=== PATIENT | female | born 1985 | race Caucasian/White ===

== ENCOUNTER → 2019-03-04 12:25 | Outpatient (CLI) | payer MEDICAID, SELFPAY ==
--- NOTE | 2019-03-04 12:32 | XR_ITS ---
PROCEDURE: XR HIP RT 2-3V W/PELVIS CLINICAL INDICATION: Right hip pain COMPARISON: No exams were available for comparison FINDINGS: No fracture or dislocation. No significant degenerative change. Small cyst calcific density is present at the lesser trochanter and could be related to an ununited ossification center or a prior avulsion injury. There are bilateral tubal ligation clips. Abdominal wall tacks are present over the lower abdomen. IMPRESSION: Small separate calcific density at the lesser trochanter on the right which could be due to an old avulsion injury or accessory center of ossification otherwise negative. MRI may provide further evaluation to determine if this is an acute or chronic process Dictated by: Rudi Hitchcock MD 03/04/2019 16:36 Electronically signed by Rudi Hitchcock MD in [place] 03/04/2019 16:38
== END ==
PROVIDERS: PCP Nurse Practitioner Family; Visit Provider Nurse Practitioner Family
DX: M25.551 Pain in right hip (principal)
CPT/HCPCS: 73502

== ENCOUNTER → 2019-03-17 10:32 | Outpatient (CLI) | payer MEDICAID, SELFPAY ==
--- NOTE | 2019-03-17 10:34 | MR_ITS ---
PROCEDURE: MR HIP RT WO CON CLINICAL INDICATION: ABNORMAL X-RAY EXAMINATION, RT HIP PAIN Right hip pain worse when walking abnormal radiograph COMPARISON: XR HIP RT 2-3V W/PELVIS from 03/04/2019 TECHNIQUE: Routine multiplanar multi echo sequences are performed without gadolinium enhancement. FINDINGS: Recent plain film demonstrated a calcific density along the lesser trochanter.. It was uncertain if this was acute or chronic. The right hip joint has an unremarkable appearance. No evidence of fracture or avascular necrosis. No hip joint effusion evident. There is slight prominence of the ileo psoas tendon at the insertion on the lesser trochanter at the area of the radiographic abnormality. This does not demonstrate as intense T2 signal as 1 would expect for an acute injury and likely represents an old avulsion fracture with some mild tendinopathy/tendinosis. No acute abnormalities are evident. IMPRESSION: Slight widening with isointensity of the distal aspect of the iliopsoas tendon at the insertion on the lesser trochanter consistent with an area of tendinopathy/tendinosis. Suspect old avulsion injury at this area. No acute finding apparent Dictated by: Rudi Hitchcock MD 03/20/2019 12:43 Electronically signed by Rudi Hitchcock MD in [place] 03/20/2019 12:43
== END ==
PROVIDERS: PCP Nurse Practitioner Family; Visit Provider Nurse Practitioner Family
DX: M25.551 Pain in right hip (principal); R93.89 Abnormal findings on diagnostic imaging of other specified body structures
CPT/HCPCS: 73721

== ENCOUNTER → 2020-04-21 15:05 | Outpatient (CLI) | payer OTHER, SELFPAY | PROVIDERS: PCP Nurse Practitioner Family; Visit Provider Nurse Practitioner Family | DX: Z03.818 Encounter for observation for suspected exposure to other biological agents ruled out (principal) | CPT/HCPCS: U0003 ==

== ENCOUNTER 2020-10-26 17:45 | Emergency (ER) | payer OTHER, SELFPAY ==
[2020-10-26 17:46] VITALS: BP 138/74; PULSE 99; RESP 20; TEMP 37.1; O2SAT 98; BMI 30.9
[2020-10-26 18:04] VITALS: BP 130/76; PULSE 91; RESP 16; TEMP 36.8; O2SAT 100; BMI 30.7
--- NOTE | 2020-10-26 18:27 | HMH.EDUTC ---
[facility] [place] Dis[place] Clinical Impression: Bleeding hemorrhoid Disposition: Home, Self-Care Condition on Discharge: Good Instructions: Hemorrhoids (Alternative Therapy), Hemorrhoids, DI for Hemorrhoids Additional Instructions: Use medication as prescribed Sitz baths may help with discomfort and pain Avoid constipation: Use a laxative or stool softener as advised. Eat more high-fiber foods. These include whole grains, fruit, and veggies. Drink plenty of fluids. Avoid heavy lifting and strenuous activity for 1 to 2 weeks. Stool softeners help treat or prevent constipation. Stool softeners such as Senna and Docosate may help keep stools soft and prevent straining NSAIDs , such as ibuprofen, help decrease swelling, pain, and fever. Apply ice on your anus for 15 to 20 minutes every hour or as directed. Use an ice pack, or put crushed ice in a plastic bag. Cover it with a towel before you apply it to your anus. Ice helps prevent tissue damage and decreases swelling and pain. Take a sitz bath. Fill a bathtub with 4 to 6 inches of warm water. You may also use a sitz bath tuttle that fits inside a toilet bowl. Sit in the sitz bath for 15 minutes. Do this 3 times a day, and after each bowel movement. The warm water can help decrease pain and swelling. Keep your anal area clean. Gently wash the area with warm water daily. Soap may irritate the area. After a bowel movement, wipe with moist towelettes or wet toilet paper. Dry toilet paper can irritate the area. Follow up with Family Doctor if no improvement or any worsening of symptoms Return if needed Straight to ER if any life threatening symptoms Prescriptions: Hydrocortisone [Proctosol-Hc] 28.35 gm TP QID #1 tube Transmission Status: Received by [facility] Referrals: Ana M Arceo APRN [Primary Care Provider] - As needed Time of Disposition: 18:49 Medical Decision Making - Oj Inquiry Pt receiving controlled substance: No Oj was queried for this patient: No Vital Signs: 10/26/20 17:46 10/26/20 18:04 10/26/20 18:55 Temperature 98.7 F 98.3 F 98.5 F Temperature Source Oral Oral Pulse Rate 89 Pulse Rate [Radial] 99 H 91 H Respiratory Rate 20 16 16 Blood Pressure 140/79 Blood Pressure [Right Arm] 138/74 130/76 Blood Pressure Mean [Right Arm] 95 94 Blood Pressure Position [Right Arm] Sitting 02 Sat by Pulse Oximetry 98 100 Oxygen Delivery Method Room Air [facility] [place] HPI - General Stated complaint: hemorrhoids Time Seen by Provider: 10/26/20 18:36 Mode of Arrival: Ambulatory Source of Information: Patient Limitations: No Limitations Description of Symptoms (Recalled from Triage Doc. by RN): pt c/o pain related to hemorhoids. pt states she was seen by her pcp and was given a cream to use. pt states they continue to get worse. HEENT Symptoms (Recalled from RN notes): No Resp Symptoms (Recalled from RN notes): No Skin Symptoms (Recalled from RN notes): No MS Symptoms (Recalled from RN notes): No Functional Status (Recalled from RN notes): na - History of Present Illness Provider Complaint: Patient states that she has been being treated by her PCP for hemorrhoids States that they have been bleeding - Related Data Home Medications Medication Instructions Recorded Confirmed Escitalopram Oxalate [Lexapro] 20 mg PO DAILY 07/28/19 08/04/19 Previous Rx's Medication Instructions Recorded omeprazole 40 mg capsule,delayed 40 mg PO DAILY #30 cap 03/16/20 release Hydrocortisone [Proctosol-Hc] 28.35 gm TP QID #1 tube 10/26/20 Allergies Allergy/AdvReac Type Severity Reaction Status Date / Time codeine [CODEINE] Allergy Unknown Verified 10/26/20 18:08 Sulfa (Sulfonamide Allergy Unknown Verified 10/26/20 18:08 Antibiotics) [SULFA (SULFONAMIDE ANTIBIOTICS)] - Worker's Comp Is this a Worker's Comp case?: No [facility] History - Hepatitis A Screen Drug use history?: No High risk sexual behaviors?: No History of sexually transmitted
[2020-10-26 18:55] VITALS: BP 140/79; PULSE 89; RESP 16; TEMP 36.9
== END 2020-10-26 18:56 | disposition home or self-care (01) ==
PROVIDERS: Emergency Provider Nurse Practitioner; PCP Nurse Practitioner Family
DX: K64.4 Residual hemorrhoidal skin tags (principal); F41.8 Other specified anxiety disorders; K21.9 Gastro-esophageal reflux disease without esophagitis
CPT/HCPCS: 99202; G0463

== ENCOUNTER → 2020-11-16 15:14 | Outpatient (CLI) | payer OTHER, SELFPAY ==
[2020-11-16 15:38] LABS: Basophils # 0.1 K/mm3 (0-0.2); Basophils % 0.9 % (0.1-2.0); Eosinophils # 0.1 K/mm3 (0.0-0.4); Eosinophils % 1.3 % (0.1-12.0); Hematocrit 41.2 % (37.0-47.0); Hemoglobin 13.7 g/dL (12.2-16.2); Lymphocytes # 2.7 K/mm3 (0.7-4.5); Lymphocytes % 26.1 % (10-50); Mean Corpuscular HGB Conc 33.1 g/dL (31.8-35.4); Mean Corpuscular Hemoglobin 30.7 pg (27.0-31.2); Mean Corpuscular Volume 92.6 fl (81-99); Mean Platelet Volume 8.8 fl (7.4-10.4); Monocytes # 0.5 K/mm3 (0.1-1.0); Monocytes % 5.3 % (1.7-9.3); Neutrophils # 6.7 K/mm3 (1.8-7.8); Neutrophils % 66.4 % (37.0-80.0); Platelet Count 252 K/mm3 (142-424); Red Blood Count 4.45 M/mm3 (4.20-5.40); Red Cell Distribution Width 13.8 % (11.5-17.5); White Blood Count 10.1 K/mm3 (4.8-10.8)
[2020-11-16 16:00] LABS: Alanine Aminotransferase 13 U/L (12-78); Albumin Level 4.1 g/dl (3.5-5.0); Albumin/Globulin Ratio 1.6 (1.1-1.8); Alkaline Phosphatase 60 U/L (38-126); Anion Gap 8.6 mEq/L (5-15); Aspartate Amino Transferase 15 U/L (14-36); Bilirubin,Total 0.5 mg/dl (0.2-1.3); Blood Urea Nitrogen 10 mg/dl (7-17); Calcium 9.2 mg/dl (8.4-10.2); Carbon Dioxide 27 mmol/L (22.0-30.0); Chloride 108 mmol/L (98-107); Estimated Glomerular Filt Rate 95 ml/min (>60); GFR (African American) 115 ML/MIN (>60); Globulin 2.5 g/dL (1.3-3.2); Glucose 134 mg/dl (74-100); Potassium 4.6 mmoL/L (3.5-5.1); Sodium 139 mmol/L (136-145); Total Protein,Serum 6.6 g/dl (6.3-8.2)
== END ==
PROVIDERS: Visit Provider Nurse Practitioner Family
DX: R10.30 Lower abdominal pain, unspecified (principal); K62.5 Hemorrhage of anus and rectum
CPT/HCPCS: 36415; 80053; 85025

== ENCOUNTER → 2020-11-17 10:49 | Outpatient (CLI) | payer OTHER, SELFPAY ==
--- NOTE | 2020-11-17 10:52 | CT_ITS ---
PROCEDURE: CT ABDOMEN PELVIS W CON CLINICAL INDICATION: RECTAL BLEEDING,LOWER ABD PAIN COMPARISON: No exams were available for comparison TECHNIQUE: IV Contrast: 75ML OPTIRAY 350 Oral Contrast 20ml Gastroview Axial images obtained with sagittal and coronal reformats. All CT scans at the facility use one or more dose reduction, viz: automated exposure control, ma/kV adjustment per patient size (including targeted exams where dose is matched to indication, i.e. head), or iterative reconstruction technique. FINDINGS: Lower thorax: The lower lung barton are clear and there is no pleural fluid. There is minimal postinflammatory scarring or atelectasis the right base anteriorly there is a large calcified granuloma right lower lobe. There is no pleural fluid. ABDOMEN: Liver: No masses or biliary dilatation. Gallbladder: Post cholecystectomy Pancreas: No masses or peripancreatic fluid collections. Spleen: unremarkable except for few scattered calcified granulomata Adrenals: unremarkable Kidneys/ureters: The kidneys are normal in size and show symmetrical function both appearing normal. ABDOMEN & PELVIS: Stomach bowel: Media. The stomach appears grossly normal. The small bowel is normal. The appendix is normal. There is moderate scattered stool and gas seen throughout the colon, the rectum appears normal. Peritoneum: No abnormal fluid collections. No obvious inflammatory changes. No free air. There is apparent mesh with surgical clips just to the right of the midline lower abdomen probably from previous ventral hernia repair. Lymph nodes: No enlarged lymph nodes apparent. Vasculature: No evidence of abdominal aortic aneurysm. There is scattered arteriosclerotic calcifications within the aorta, no retroperitoneal hemorrhage evident. Bones: No acute fracture PELVIS: Reproductive: The uterus is normal size and in the midline. There are bilateral tubal ligation clips noted. There are no adnexal masses. There is a small right ovarian cyst with peripheral enhancement. Bladder: Well distended with urine and appearing normal. There is no free fluid in pelvis. Appendix: Normal IMPRESSION: Findings as described with no definite acute abdominal or pelvic pathology identified Dictated by: Dr. Joey Chapman MD 11/17/2020 12:10 Dr. Joey Chapman MD in [place] 11/17/2020 12:10
== END ==
PROVIDERS: PCP Nurse Practitioner Family; Visit Provider Nurse Practitioner Family
DX: R10.30 Lower abdominal pain, unspecified (principal); K62.5 Hemorrhage of anus and rectum
CPT/HCPCS: 74177; Q9967

== ENCOUNTER → 2020-12-05 13:15 | Outpatient (CLI) | payer OTHER, SELFPAY ==
[2020-12-05 13:58] LABS: Urine Pregnancy, HCG Qual. Negative (Negative)
== END ==
PROVIDERS: Visit Provider Surgery
DX: Z01.812 Encounter for preprocedural laboratory examination (principal); Z11.52 Encounter for screening for COVID-19; K64.9 Unspecified hemorrhoids
CPT/HCPCS: 81025; U0003

== ENCOUNTER 2020-12-07 09:12 | Day surgery (SDC) | payer OTHER, SELFPAY ==
[2020-11-30 11:03] VITALS: BMI 29.1
[2020-12-07 09:28] VITALS: BP 131/79; PULSE 86; RESP 18; TEMP 36.7; O2SAT 98
[2020-12-07 09:41] LABS: POC Glucose,Bedside 117 (70-110)
--- NOTE | 2020-12-07 10:55 | HMH.ANESCL ---
[facility] Anesthesia Checklist - Patient Identification Patient Identification: Arm Band - Structural Data Admitted From: Home Planned Operative Procedure/s: egd/colonoscopy Consent for Planned Operative Procedure(s) Verified: Yes Verified Documents: Surgical Consent, History and Physical - NPO Status Verified Time NPO: 00:00 - Additional verifications Anesthesia Reactions: No - Airway Assessment C-Spine Mobility Assessed: Yes (mp2) TMJ Mobility Assessed: Yes Dentition: Edentulous - Neurological Assessment Level of Consciousness: Awake, Alert - Anesthesia Plan Anesthesia Risk discussed: Yes Anesthesia Plan: Verified ASA Class: II Anesthesia Type: MAC [facility] History I have reviewed the patient's past medical history: Yes Medical History: Reports:: Anxiety, Depression, Diabetes Mellitus Type 2, Gastroesophageal Reflux Disease(GERD) Denies:: Cancer, Diabetes Mellitus Type 1, Hypertension, Internal Pacemaker, Lung Disease, MRSA, Seizures *Have you ever received a pneumonia vaccine?: No *Have you received a flu vaccine this season?: No Anesthesia experience/problems:: nac Laterality Cases: Bilateral: Tonsillectomy Other Surgeries: Yes: Cholecystectomy, Colonoscopy, , EGD, Hernia Repair, Other. No: Pacemaker Amputation: No Fractures: No - *Social History Last grade of school completed: Some college Smoking Status: Current every day smoker Tobacco Type: cigarettes # Packs/Day (cigarettes): 1 Alcohol Intake: never Substance Use Type: denies use *Occupational Status:: employed Housing: house Household Members: family, children *Travel in the last 8 weeks: None - Psychiatric History Pschychiatric History:: Reports:: Anxiety, Depression Family Hx:: Unable to obtain
[2020-12-07 10:57] VITALS: O2SAT 97
[2020-12-07 11:35] VITALS: BP 102/64; PULSE 88; RESP 16; TEMP 36.3; O2SAT 92
--- NOTE | 2020-12-07 11:35 | HMH.SCOPE ---
- Procedure: Date: 12/07/20 Patient Date of :: 1985 Procedure Performed:: Esophagogastroduodenoscopy with biopsy Colonoscopy with biopsy Anoscopy Indications:: History of Ring's esophagus Blood per rectum Performing Provider:: Gold Adair MD Referring Provider:: . Sedation:: Monitored anesthesia care Procedure:: After informed consent was obtained the patient was taken to the endoscopy suite. Sedation ensued after the patient was transferred to the left lateral decubitus position. Pulse, blood pressure, and oxygen saturation were monitored throughout the procedure. The endoscope was advanced beyond the duodenal bulb. Retroflexion within the gastric lumen was accomplished. The gastroscope was carefully removed. Digital rectal exam revealed perianal tags with a dominant posterior tag. The anoscope was placed in position. Circumferential hemorrhoidal cushions confirmed. The colonoscope was placed in position. The entire colon was evaluated. The colonoscope was carefully removed and the patient was transferred to recovery in stable condition. Please see findings and specimens below for detail. Findings:: Sliding hiatal hernia Tiny tongue of possible Ring's at gastroesophageal junction Gastric cardia polyp Bowel preparation poor for colonoscopy Perianal tags with dominant posterior tag Circumferential hemorrhoids Small anal canal polyps at margin of hemorrhoids Scattered diverticulosis Specimens:: Antral biopsy Gastric cardia polyp Gastroesophageal junction biopsies (small tongue of possible Ring's) Biopsy of anal canal polyps (tiny polyps at margin of hemorrhoidal cushions) Recommendations:: Follow-up pathology Continue PPI Timing of repeat colonoscopy is pending pathology but will likely be between 3-5 years. Extended bowel preparation will be required. Complications:: No immediate Estimated blood obtained (mL): 1
[2020-12-07 11:45] VITALS: BP 101/65; PULSE 84; RESP 16; O2SAT 95
[2020-12-07 11:55] VITALS: BP 100/66; PULSE 80; RESP 16; O2SAT 98
[2020-12-07 12:05] VITALS: BP 104/54; PULSE 78; RESP 14; TEMP 36.7; O2SAT 98
== END 2020-12-07 12:10 | disposition home or self-care (01) ==
LOC: OUTP 09:14
PROVIDERS: PCP Nurse Practitioner Family; Visit Provider Surgery
PROC: 0DJ08ZZ Inspection of Upper Intestinal Tract, Via Natural or Artificial Opening Endoscopic (ICD-10-PCS; CPT 43235; principal; 2020-12-07 10:30)
DX: K44.9 Diaphragmatic hernia without obstruction or gangrene; K22.9 Disease of esophagus, unspecified; K31.7 Polyp of stomach and duodenum; N90.89 Other specified noninflammatory disorders of vulva and perineum; K64.9 Unspecified hemorrhoids; K62.0 Anal polyp; K57.30 Diverticulosis of large intestine without perforation or abscess without bleeding; Z87.19 Personal history of other diseases of the digestive system; F41.9 Anxiety disorder, unspecified; F32.9 Major depressive disorder, single episode, unspecified; K21.9 Gastro-esophageal reflux disease without esophagitis; Z79.899 Other long term (current) drug therapy
CPT/HCPCS: 43239; 45380; 82962; J2704

== ENCOUNTER → 2021-02-16 15:12 | Outpatient (CLI) | payer OTHER, SELFPAY | PROVIDERS: PCP Nurse Practitioner Family; Visit Provider Nurse Practitioner Family | DX: Z20.822 Contact with and (suspected) exposure to COVID-19 (principal); U07.1 COVID-19 | CPT/HCPCS: U0003 ==

== ENCOUNTER → 2021-04-20 11:52 | Outpatient (CLI) | payer OTHER, SELFPAY ==
--- NOTE | 2021-04-20 12:06 | ECG_ITS ---
APPROVED REPORT Exam: Resting ECG HR:85 bpm ECG Measurements Heart Rate 85 AXES AL 134 P 48 QRSd 90 QRS 29 QT 368 T 32 QTc 437 Conclusion Normal sinus rhythm Normal ECG Electronically signed by : Jassi Espinosa MD 04/20/2021 14:24:15
--- NOTE | 2021-04-20 12:11 | XR_ITS ---
PROCEDURE: XR CHEST 2V CLINICAL HISTORY: COUGH,SOB COMPARISON: CT CT ABDOMEN PELVIS W CON from 11/17/2020 FINDINGS: The cardiomediastinal silhouette and pulmonary vascularity are within normal limits. There are calcified right hilar nodes. The lungs are clear without infiltrates, suspicious nodules, or pleural effusions. There is a stable calcified granuloma right lower lobe just above the right hemidiaphragm. There is no pleural fluid. No acute bony abnormalities. There is minor diffuse dextroscoliotic curvature of the lower thoracic spine probably no more than 4-5 degrees. IMPRESSION: No acute findings. Dictated by: Dr. Joey Chapman MD 04/20/2021 12:24 Dr. Joey Chapman MD in [place] 04/20/2021 12:24
[2021-04-20 12:44] LABS: Basophils # 0.2 K/mm3 (0-0.2); Basophils % 1.8 % (0.1-2.0); Eosinophils # 0.1 K/mm3 (0.0-0.4); Hematocrit 45.9 % (37.0-47.0); Hemoglobin 14.9 g/dL (12.2-16.2); Lymphocytes # 2.3 K/mm3 (0.7-4.5); Mean Corpuscular HGB Conc 32.6 g/dL (31.8-35.4); Mean Corpuscular Hemoglobin 30.6 pg (27.0-31.2); Mean Corpuscular Volume 93.9 fl (81-99); Mean Platelet Volume 9.6 fl (7.4-10.4); Monocytes # 0.5 K/mm3 (0.1-1.0); Monocytes % 4.5 % (1.7-9.3); Neutrophils # 7.9 K/mm3 (1.8-7.8); Neutrophils % 71.7 % (37.0-80.0); Platelet Count 305 K/mm3 (142-424); Red Blood Count 4.88 M/mm3 (4.20-5.40)
[2021-04-20 13:35] LABS: Chloride 105 mmol/L (98-107); Potassium 4.6 mmoL/L (3.5-5.1); Sodium 138 mmol/L (136-145)
[2021-04-20 13:38] LABS: Alanine Aminotransferase 16 U/L (12-78); Albumin Level 3.9 g/dl (3.5-5.0); Albumin/Globulin Ratio 1.4 (1.1-1.8); Alkaline Phosphatase 88 U/L (38-126); Anion Gap 13.6 mEq/L (5-15); Aspartate Amino Transferase 17 U/L (14-36); Bilirubin,Total 0.6 mg/dl (0.2-1.3); Blood Urea Nitrogen 11 mg/dl (7-17); Calcium 9.3 mg/dl (8.4-10.2); Carbon Dioxide 24 mmol/L (22.0-30.0); Estimated Glomerular Filt Rate 112 ml/min (>60); GFR (African American) 136 ML/MIN (>60); Globulin 2.7 g/dL (1.3-3.2); Glucose 182 mg/dl (74-100); Total Protein,Serum 6.6 g/dl (6.3-8.2)
[2021-04-20 13:39] LABS: Magnesium 1.9 mg/dl (1.6-2.3)
== END ==
PROVIDERS: PCP Nurse Practitioner Family; Visit Provider Nurse Practitioner Family
DX: R06.02 Shortness of breath (principal); R05.9 Cough, unspecified; R00.2 Palpitations; R11.0 Nausea
CPT/HCPCS: 36415; 71046; 80053; 83735; 84443; 85025; 93005

== ENCOUNTER → 2021-06-25 15:07 | Outpatient (CLI) | payer OTHER, SELFPAY | PROVIDERS: PCP Nurse Practitioner Family; Visit Provider Nurse Practitioner | DX: Z20.822 Contact with and (suspected) exposure to COVID-19 (principal) | CPT/HCPCS: C9803; U0003; U0005 ==

== ENCOUNTER → 2021-07-02 14:15 | Outpatient (CLI) | payer OTHER, SELFPAY | PROVIDERS: Visit Provider Nurse Practitioner | DX: Z20.822 Contact with and (suspected) exposure to COVID-19 (principal) | CPT/HCPCS: C9803; U0003; U0005 ==

== ENCOUNTER → 2021-07-10 14:33 | Outpatient (CLI) | payer OTHER, SELFPAY | PROVIDERS: PCP Nurse Practitioner Family; Visit Provider Nurse Practitioner | DX: Z20.822 Contact with and (suspected) exposure to COVID-19 (principal) | CPT/HCPCS: C9803; U0003; U0005 ==

== ENCOUNTER 2021-10-01 22:02 | Emergency (ER) | payer OTHER, SELFPAY ==
[2021-10-01 22:04] VITALS: BP 126/75; PULSE 96; RESP 16; TEMP 36.9; O2SAT 99; BMI 29.9
[2021-10-01 22:20] VITALS: BMI 29.9
--- NOTE | 2021-10-01 22:20 | XR_ITS ---
PROCEDURE INFORMATION: Exam: XR Chest Exam date and time: 10/01/2021 10:48 PM Age: 36 years old Clinical indication: Injury or trauma; Fall; Blunt trauma (contusions or hematomas) TECHNIQUE: Imaging protocol: XR of the chest. Views: 4 or more views. COMPARISON: CR XR CHEST 2V 04/20/2021 12:13 PM FINDINGS: Lungs: Calcified granuloma at the right lung base. No consolidation. Pleural spaces: Unremarkable. No pleural effusion. No pneumothorax. Heart/Mediastinum: Unremarkable. No cardiomegaly. Bones/joints: Unremarkable. Organs: Previous cholecystectomy. IMPRESSION: No acute cardiopulmonary process.
--- NOTE | 2021-10-01 22:20 | CT_ITS ---
PROCEDURE INFORMATION: Exam: CT Lumbar Spine Without Contrast Exam date and time: 10/01/2021 11:01 PM Age: 36 years old Clinical indication: Low back pain; Patient HX: Fall going down ramp TECHNIQUE: Imaging protocol: Computed tomography images of the lumbar spine without contrast. Radiation optimization: All CT scans at this facility use at least one of these dose optimization techniques: automated exposure control; mA and/or kV adjustment per patient size (includes targeted exams where dose is matched to clinical indication); or iterative reconstruction. COMPARISON: CR LS5 LUMBAR SPINE 5 VIEWS 02/14/2017 12:41 PM FINDINGS: Vertebrae: Vertebral body height and AP alignment is preserved. There is Schmorl's node formation. Mild levoconvex curvature. No acute lumbar spine fracture. No osseous destruction. Discs/Spinal canal/Neural foramina: No definite significant central canal stenosis within limitations of technique. Mediastinum: There are calcified granulomas involving the spleen. Gallbladder and bile ducts: Previous cholecystectomy. Reproductive: Previous bilateral tubal ligation. Vasculature: Vascular calcification. Soft tissues: Unremarkable. IMPRESSION: No acute osseous abnormality.
--- NOTE | 2021-10-01 22:20 | XR_ITS ---
PROCEDURE INFORMATION: Exam: XR Pelvis Exam date and time: 10/01/2021 10:47 PM Age: 36 years old Clinical indication: Injury or trauma; Fall; Blunt trauma (contusions or hematomas); Bilateral; Pelvic region; Prior surgery; Surgery type: Tubal TECHNIQUE: Imaging protocol: XR pelvis. Views: 1 or 2 view. COMPARISON: CT ABDOMEN PELVIS W CON 11/17/2020 11:27 AM FINDINGS: Tubes, catheters and devices: There are bilateral tubal ligation clips. Bones/joints: There is a small linear lucency involving the superior aspect of the right lesser trochanter. No dislocation. Soft tissues: There has been previous hernia repair. IMPRESSION: Small linear lucency involving the superior aspect of the right lesser trochanter, possible nondisplaced fracture. Correlation with CT may be considered as clinically warranted.
--- NOTE | 2021-10-01 22:20 | CT_ITS ---
PROCEDURE INFORMATION: Exam: CT Thoracic Spine Without Contrast Exam date and time: 10/01/2021 10:58 PM Age: 36 years old Clinical indication: Pain in thoracic spine; Patient HX: Fall going down ramp TECHNIQUE: Imaging protocol: Computed tomography images of the thoracic spine without contrast. Radiation optimization: All CT scans at this facility use at least one of these dose optimization techniques: automated exposure control; mA and/or kV adjustment per patient size (includes targeted exams where dose is matched to clinical indication); or iterative reconstruction. COMPARISON: CT CERVICAL SPINE WO CON 10/01/2021 10:56 PM FINDINGS: Vertebrae: Mild dextroconvex curvature. Multilevel Schmorl's node formation. Vertebral body height and AP alignment is preserved. 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 No acute thoracic spine fracture. No osseous destruction. Discs/Spinal canal/Neural foramina: No significant central canal stenosis within limitations of technique. Soft tissues: Unremarkable. Lymph nodes: There are calcified mediastinal and right hilar lymph nodes. Pleural spaces: No visible pneumothorax. Spleen: There are calcified granulomas involving the spleen. Other findings: There are few tiny bilateral nodular densities measuring up to 4 mm. IMPRESSION: 1. No acute thoracic spine fracture. 2. There are several small bilateral nodular densities measuring up to 4 mm. For patients at low risk (minimal or absent history of smoking and of other known risk factors), no routine follow-up is indicated. For patients at high risk (history of smoking or of other known risk factors), consider optional CT Chest at 12 months. (Reference: Joe) REFERENCES: Joe Whitmore, et al. Guidelines for Management of Incidental Pulmonary Nodules Detected on CT Images: From the Fleischner Society 2017. Radiology. 2017;284(1):228-243.
--- NOTE | 2021-10-01 22:20 | CT_ITS ---
PROCEDURE INFORMATION: Exam: CT Cervical Spine Without Contrast Exam date and time: 10/01/2021 10:56 PM Age: 36 years old Clinical indication: Neck pain; Patient HX: Fall going down ramp TECHNIQUE: Imaging protocol: Computed tomography images of the cervical spine without contrast. Radiation optimization: All CT scans at this facility use at least one of these dose optimization techniques: automated exposure control; mA and/or kV adjustment per patient size (includes targeted exams where dose is matched to clinical indication); or iterative reconstruction. COMPARISON: RF ESO ESOPHAGUS (BA. SWALLOW) 02/23/2016 9:09 AM FINDINGS: Bones/joints: Nonspecific straightening. Vertebral body height and AP alignment is preserved. No acute cervical spine fracture. Discs/Spinal canal/Neural foramina: No definite significant central canal stenosis within limitations of technique. Submandibular/Parotid glands: Multiple small calcifications are present involving the bilateral parotid glands. Lungs: Lung apices are normal. Pleural spaces: No visible pneumothorax. Soft tissues: Unremarkable. IMPRESSION: No acute cervical spine fracture.
--- NOTE | 2021-10-01 22:34 | HMH.EDBACK ---
ED Disposition Clinical Impression: Lumbar back pain Thoracic back pain Qualifiers: Chronicity: acute Back pain laterality: unspecified Qualified Code(s): M54.6 - Pain in thoracic spine Disposition: Home, Self-Care Condition on Discharge: Good Instructions: DI for Low Back Pain Additional Instructions: ice anbd see pcp for yuli farnsworth Referrals: Ana M Arceo APRN [Primary Care Provider] - - Critical Care Critical Care Time: No Attestation: On 10/01/21, the high probability of a clinically significant, sudden or life threatening deterioration of the following system(s) required my full and direct attention, intervention and personal management. The time I documented below is in addition to time spent performing reported procedures but includes the following listed in this critical care notation. Medical Decision Making - Medical Records Medical records reviewed: Yes: I reviewed the patient's medical records. - Oj Inquiry Pt receiving controlled substance: No Vital Signs: 10/01/21 22:04 Temperature 98.5 F Temperature Source Oral Pulse Rate [Right] 96 H Respiratory Rate 16 Blood Pressure [Right Arm] 126/75 Blood Pressure Mean [Right Arm] 92 02 Sat by Pulse Oximetry 99 - Lab Data Lab results reviewed: Yes: I reviewed the patient's lab results. Orders (Tests/Meds): ED MEDICATIONS Generic Name Dose Route Start Last Admin Trade Name Freq PRN Reason Stop Dose Admin Tramadol HCl 1 jessi 10/02/21 01:13 Tramadol 50mg Tab Take Home Pack (10) PO 10/02/21 01:14 ONCE ONE Discontinued Medications Generic Name Dose Route Start Last Admin Trade Name Freq PRN Reason Stop Dose Admin Ketorolac Tromethamine 60 mg 10/01/21 22:32 10/01/21 22:39 Ketorolac 60mg/2ml Vial IM 10/01/21 22:33 60 mg ONCE ONE Administration Methylprednisolone Sodium Succinate 125 mg 10/01/21 22:32 10/01/21 22:39 Methylprednisolone Sod Succ 125mg Vial IM 10/01/21 22:33 125 mg ONCE ONE Administration Orphenadrine Citrate 60 mg 10/02/21 00:19 10/02/21 00:21 Orphenadrine Citrate 60mg/2ml Vial IM 10/02/21 00:20 60 mg ONCE ONE Administration - Radiology Data #1 Image(s): Chest, Pelvis Image Reviewed: Yes I have reviewed radiologist's interpretation Preliminary Findings: No Fracture Seen - CT Data CT Scan: C-Spine, T-Spine, L-Spine Time Received: 00:[address] Reviewed: Yes: I have viewed the radiologist's interpretation Preliminary Findings: No Fracture Seen Medical Decision Narrative: acute fall w/o fx and has stable exam Back Pain HPI - General Chief Complaint: Back Pain/Injury Stated Complaint: AO 10/01@2030 injured back*tail bone Time Seen by Provider: 10/01/21 22:15 Mode of Arrival: Ambulatory Source of Information: Patient, Medical Record Limitations: No Limitations Description of Symptoms (Recalled from ER Triage Doc. by RN): pt states was walking down ramp and her legs went out from underneath her landing on her butt. pt c/o lower back pain and tailbone pain - History of Present Illness HPI Narrative: slipped and fell with injury to back but no head injury or loc - no abd pain MD Complaint: back injury Onset (ago): hour(s) Duration: constant Location: lumbar spine, thoracic spine, sacrum Severity: moderate Exacerbating factors: movement Context: fall Associated symptoms: denies other symptoms - Related Data Home Medications Medication Instructions Recorded Confirmed Duloxetine HCl [Cymbalta] 60 mg PO DAILY 11/30/20 12/20/20 Hydrocortisone [Proctosol-Hc] 28.35 gm TP QID 11/30/20 12/20/20 Omeprazole 40 mg PO DAILY 11/30/20 12/20/20 Allergies Allergy/AdvReac Type Severity Reaction Status Date / Time codeine [CODEINE] Allergy Unknown Verified 12/20/20 10:21 Sulfa (Sulfonamide Allergy Unknown Verified 12/20/20 10:21 Antibiotics) [SULFA (SULFONAMIDE ANTIBIOTICS)] [facility] History - Hepatitis A Screen Drug use histo
--- NOTE | 2021-10-02 00:46 | CT_ITS ---
PROCEDURE INFORMATION: Exam: CT Right Lower Extremity Without Contrast, Hip Exam date and time: 10/02/2021 12:49 AM Age: 36 years old Clinical indication: Abnormal findings; Abnormal imaging study; Additional info: Fall TECHNIQUE: Imaging protocol: CT of the Right lower extremity without contrast was performed. Exam focused on the hip. 3D rendering (Not supervised by radiologist): MIP and/or 3D reconstructed images were created by the technologist. Radiation optimization: All CT scans at this facility use at least one of these dose optimization techniques: automated exposure control; mA and/or kV adjustment per patient size (includes targeted exams where dose is matched to clinical indication); or iterative reconstruction. COMPARISON: MR HIP RT WO CON 03/17/2019 10:48 AM FINDINGS: Bones/joints: No acute fracture or dislocation. There is small chronic calcification adjacent to the lesser trochanter responsible for the appearance of lucency on recent x-ray study. Soft tissues: Right-sided tubal ligation clip. IMPRESSION: No acute osseous abnormality.
[2021-10-02 01:19] VITALS: BP 118/85; PULSE 89; RESP 16; TEMP 36.9; O2SAT 99
== END 2021-10-02 01:20 | disposition home or self-care (01) ==
PROVIDERS: Emergency Provider Emergency Medicine; PCP Nurse Practitioner Family
DX: M54.6 Pain in thoracic spine (principal); M54.50 Low back pain, unspecified; W01.0XXA Fall on same level from slipping, tripping and stumbling without subsequent striking against object, initial encounter; Y92.480 Sidewalk as the place of occurrence of the external cause; F41.8 Other specified anxiety disorders; K21.9 Gastro-esophageal reflux disease without esophagitis; F17.210 Nicotine dependence, cigarettes, uncomplicated
CPT/HCPCS: 71045; 72125; 72128; 72131; 72170; 73700; 96372; 99284

== ENCOUNTER → 2021-11-26 15:32 | Outpatient (CLI) | payer OTHER, SELFPAY | PROVIDERS: PCP Nurse Practitioner Family; Visit Provider Nurse Practitioner Family | DX: G47.30 Sleep apnea, unspecified (principal) | CPT/HCPCS: 95806 ==

== ENCOUNTER → 2021-11-29 10:05 | Outpatient (CLI) | payer OTHER, SELFPAY ==
[2021-11-29 10:47] LABS: Basophils # 0.3 K/mm3 (0-0.2); Basophils % 2.5 % (0.1-2.0); Eosinophils # 0.2 K/mm3 (0.0-0.4); Eosinophils % 1.3 % (0.1-12.0); Hematocrit 48.3 % (37.0-47.0); Hemoglobin 16.2 g/dL (12.2-16.2); Lymphocytes # 2.7 K/mm3 (0.7-4.5); Lymphocytes % 23.1 % (10-50); Mean Corpuscular HGB Conc 33.6 g/dL (31.8-35.4); Mean Corpuscular Hemoglobin 31.4 pg (27.0-31.2); Mean Corpuscular Volume 93.6 fl (81-99); Mean Platelet Volume 10.2 fl (7.4-10.4); Monocytes # 0.6 K/mm3 (0.1-1.0); Neutrophils # 7.8 K/mm3 (1.8-7.8); Neutrophils % 68.1 % (37.0-80.0); Platelet Count 269 K/mm3 (142-424); Red Blood Count 5.16 M/mm3 (4.20-5.40); Red Cell Distribution Width 13.9 % (11.5-17.5); White Blood Count 11.4 K/mm3 (4.8-10.8)
[2021-11-29 11:12] LABS: Alanine Aminotransferase 14 U/L (12-78); Albumin Level 3.9 g/dl (3.5-5.0); Albumin/Globulin Ratio 1.4 (1.1-1.8); Alkaline Phosphatase 84 U/L (38-126); Anion Gap 12.5 mEq/L (5-15); Aspartate Amino Transferase 18 U/L (14-36); Bilirubin,Total 0.4 mg/dl (0.2-1.3); Blood Urea Nitrogen 20 mg/dl (7-17); Calcium 9.2 mg/dl (8.4-10.2); Carbon Dioxide 22 mmol/L (22.0-30.0); Chloride 107 mmol/L (98-107); Estimated Glomerular Filt Rate 112 ml/min (>60); GFR (African American) 136 ML/MIN (>60); Globulin 2.7 g/dL (1.3-3.2); Glucose 157 mg/dl (74-100); Potassium 4.5 mmoL/L (3.5-5.1); Sodium 137 mmol/L (136-145); Total Protein,Serum 6.6 g/dl (6.3-8.2)
[2021-11-29 11:29] LABS: 25-OH Vitamin D, Total 26.2 ng/mL (30-100)
[2021-11-29 12:04] LABS: Vitamin B12 326 pg/mL (239-931)
[2021-12-09 20:52] LABS: Antinuclear Antibodies (ANA) NEGATIVE
== END ==
PROVIDERS: PCP Nurse Practitioner Family; Visit Provider Nurse Practitioner Family
DX: E11.9 Type 2 diabetes mellitus without complications (principal); E55.9 Vitamin D deficiency, unspecified; E53.8 Deficiency of other specified B group vitamins; R53.83 Other fatigue; G47.19 Other hypersomnia; Z79.84 Long term (current) use of oral hypoglycemic drugs
CPT/HCPCS: 36415; 80053; 82306; 82607; 83036; 85025; 86038; 95806

== ENCOUNTER → 2021-12-26 14:59 | Outpatient (CLI) | payer OTHER, SELFPAY | PROVIDERS: PCP Nurse Practitioner Family; Visit Provider Specialist | DX: E83.10 Disorder of iron metabolism, unspecified (principal); G25.81 Restless legs syndrome | CPT/HCPCS: 82728 ==

== ENCOUNTER 2022-05-08 15:18 | Emergency (ER) | payer OTHER, SELFPAY ==
[2022-05-08 15:20] VITALS: BP 147/93; PULSE 104; RESP 18; TEMP 36.8; O2SAT 100; BMI 28.8
[2022-05-08 15:30] VITALS: BP 135/91; PULSE 89; O2SAT 97
--- NOTE | 2022-05-08 15:38 | CT_ITS ---
FINAL REPORT TECHNIQUE: Postcontrast axial images through the abdomen and pelvis were performed. This study was performed with techniques to keep radiation doses as low as reasonably achievable, (ALARA). Individualized dose reduction techniques using automated exposure control or adjustment of mA and/or kV according to the patient's size were employed. CLINICAL HISTORY: upper right abdomen pain FINDINGS: Abdomen: There is a calcified granuloma at the right base. The liver parenchyma is homogeneous. The gallbladder is absent. There are calcified granulomas in the spleen. The adrenals are normal. The pancreas is unremarkable. The kidneys enhance appropriately. The aorta is normal in caliber. No free fluid or adenopathy is identified. No findings for mechanical bowel obstruction are identified. Pelvis: There is abnormal mucosal thickening throughout the colon. There is mild pericolonic inflammation of the ascending colon. There is significant abnormal thickening of the terminal ileum. No abscess is identified. The appendix is normal. A mesh is seen in the right anterior pelvic wall consistent with prior hernia repair. The urinary bladder is unremarkable. No free fluid, free air, abscess or adenopathy is identified. IMPRESSION: Marked thickening of the terminal ileum and colon, probably related to underlying inflammatory bowel disease. Please correlate with any history of Crohn's disease. Reviewed, Interpreted and Dictated by Jude Gonzalez MD Transcribed by Elise Reddy Authenticated and [facility]
[2022-05-08 15:47] LABS: Basophils # 0.1 K/mm3 (0-0.2); Basophils % 1.1 % (0.1-2.0); Eosinophils # 0.2 K/mm3 (0.0-0.4); Eosinophils % 2.1 % (0.1-12.0); Hematocrit 47.7 % (37.0-47.0); Hemoglobin 15.5 g/dL (12.2-16.2); Lymphocytes % 18.4 % (10-50); Mean Corpuscular HGB Conc 32.5 g/dL (31.8-35.4); Mean Corpuscular Volume 95.3 fl (81-99); Monocytes # 0.5 K/mm3 (0.1-1.0); Monocytes % 4.3 % (1.7-9.3); Neutrophils # 8.3 K/mm3 (1.8-7.8); Neutrophils % 74.3 % (37.0-80.0); Platelet Count 339 K/mm3 (142-424); Red Blood Count 5.01 M/mm3 (4.20-5.40); White Blood Count 11.1 K/mm3 (4.8-10.8)
[2022-05-08 15:48] LABS: Chloride 104 mmol/L (98-107); Sodium 138 mmol/L (136-145)
[2022-05-08 15:49] LABS: Potassium 3.9 mmoL/L (3.5-5.1)
[2022-05-08 15:51] LABS: Alanine Aminotransferase 17 U/L (12-78); Alkaline Phosphatase 103 U/L (38-126); Amylase 46 U/L (30-110); Anion Gap 12.9 mEq/L (5-15); Aspartate Amino Transferase 21 U/L (14-36); Bilirubin,Total 0.3 mg/dl (0.2-1.3); Blood Urea Nitrogen 16 mg/dl (7-17); Carbon Dioxide 25 mmol/L (22.0-30.0); Creatinine Clearance Estimated 135 mL/min (50-200); Estimated Glomerular Filt Rate 94 ml/min (>60); GFR (African American) 113 ML/MIN (>60); Glucose 195 mg/dl (74-100); Lipase 87 U/L (23-300)
[2022-05-08 15:52] LABS: Albumin Level 4.1 g/dl (3.5-5.0); Albumin/Globulin Ratio 1.4 (1.1-1.8); Total Protein,Serum 7.1 g/dl (6.3-8.2)
--- NOTE | 2022-05-08 15:58 | HMH.EDGENADL ---
Discharge Plan Disposition Patient Disposition: Home, Self-Care Condition: Good Prescriptions Prescriptions: No Action fluticasone propionate 50 mcg/actuation spray,suspension 1 spray intranasal PRN Jardiance 10 mg tablet 10 mg PO DAILY cholecalciferol (vitamin D3) 25 mcg (1,000 unit) capsule 25 mcg PO DAILY ibuprofen 800 mg tablet 800 mg PO PRN venlafaxine [Effexor XR] 150 mg capsule,extended release 24hr 150 mg PO DAILY Qty: 30 1RF venlafaxine [Effexor XR] 75 mg capsule,extended release 24hr 75 mg PO .COMPLEX Qty: 30 0RF Rx Instructions: 75 mg PO take daily with 150mg capsule; total dose is 225mg daily omeprazole 40 MG capsule,delayed release(DR/EC) 40 mg PO DAILY Referrals Follow up/Referrals: Ajay Briceño [Referring] - See instructions Ana M Arceo APRN [Primary Care Provider] - See instructions Activity Restrictions/Add. Instructions Additional Instructions/Restrictions: Call Dr. Briceño tomorrow to arrange follow-up for colitis and terminal ileitis, possible Crohn's disease. Take your CT disc with you. Clinical Impressions Clinical Impression: Colitis, Ileitis, terminal Instructions Patient Instructions: DI for Acute Abdominal Pain, DI for Colitis Discharge ED Provider: Jono Guzman General Adult HPI General Chief complaint: Abdominal Pain Stated complaint: adm right side Time Seen by Provider: 05/08/22 15:58 Mode of Arrival: Ambulatory Source of Information: Patient Limitations: No Limitations Description of Symptoms (Recalled from ER Triage Doc. by RN): c/o upper right abdomen pain since Friday with nausea and vomiting. STates the pain is coming more frequently. History of Present Illness HPI narrative: Complains of right-sided abdominal pain intermittently since Friday 3 days ago. Pain lasts a couple minutes at a time and is getting more frequent. Associated with nausea and vomiting. Stool is soft, but not watery. No blood. No fever. No urinary symptoms. Seen by primary care provider today and sent to the emergency department to rule out appendicitis. She has had prior cholecystectomy, section x2, uterine ablation, tubal ligation, hernia repair. Related Data Home Medications Medication Instructions Recorded Confirmed omeprazole 40 mg capsule,delayed 40 mg PO DAILY stomach 11/30/20 04/16/22 release cholecalciferol (vitamin D3) 25 25 mcg PO DAILY 12/26/21 04/16/22 mcg (1,000 unit) capsule empagliflozin 10 mg tablet 10 mg PO DAILY 12/26/21 04/16/22 (Jardiance) ibuprofen 800 mg tablet 800 mg PO PRN 12/26/21 04/16/22 fluticasone propionate 50 1 spray intranasal PRN 04/08/22 04/16/22 mcg/actuation nasal spray,suspension Previous Rx's Medication Instructions Recorded venlafaxine 150 mg 150 mg PO DAILY #30 caps 03/27/22 capsule,extended release 24 hr (Effexor XR) venlafaxine 75 mg capsule,extended 75 mg PO .COMPLEX #30 caps 03/27/22 release 24 hr (Effexor XR) Allergies Allergy/AdvReac Type Severity Reaction Status Date / Time codeine [CODEINE] Allergy Unknown Verified 04/16/22 08:01 Sulfa (Sulfonamide Allergy Unknown Verified 04/16/22 08:01 Antibiotics) [SULFA (SULFONAMIDE ANTIBIOTICS)] PFSH PFSH Medical History (Updated 05/08/22 @ 18:34 by Jono Guzman MD) Major depressive disorder Memory impairment Social History (Updated 02/13/22 @ 16:02 by Stephany Parra APRN) Smoking Status: Current every day smoker tobacco type: cigarettes packs per day: 1 second hand exposure: No alcohol intake: never substance use type: denies use current occupational status: employed Travel in the last 8 weeks: None household members: family and children housing: house number of children: 2 current occupation: [employer] current occupational exposures/hazards: No caffeine: Yes physical activity: none ROS Obtained: Yes Systems reviewed as appropriate & n
[2022-05-08 16:00] VITALS: BP 136/93; PULSE 101; O2SAT 96
[2022-05-08 16:23] LABS: HCG Qualitative, Serum Negative (Negative)
[2022-05-08 16:30] VITALS: BP 135/91; PULSE 89; O2SAT 98
[2022-05-08 17:23] LABS: Microscopic, Urine URINE MICROSCOPIC (MICROSCOPIC)
[2022-05-08 17:30] LABS: Appearance,Urine CLEAR (Clear); Bilirubin,Urine Negative (Negative); Blood, Urine Negative (Negative); Color,Urine YELLOW (Yellow); Glucose,Urine (UA) 3+ (Negative); Ketones,Urine Negative (Negative); Leukocyte Esterase,Urine Negative (Negative); Nitrate,Urine Negative (Negative); PH,Urine 5.5 (5.0-8.5); Protein,Urine Negative (Negative); Specific Gravity, Urine 1.015 (1.005-1.030); Urobilinogen,Urine 0.2 EU/dl (0.2)
[2022-05-08 17:44] LABS: Bacteria,Urine Trace /lpf; WBC,Urine Occasional #/hpf (0-3)
--- NOTE | 2022-05-08 18:01 | PC.NURSE ---
dr. matamoros speaking with dr. holland
[2022-05-08 18:51] VITALS: BP 118/81; PULSE 93; RESP 18; TEMP 36.8; O2SAT 99
[2022-05-08 19:10] LABS: C-Reactive Protein 40.1 mg/L (0-4); Erythrocyte Sedimentation Rate 3 mm/hr (0-20)
== END 2022-05-08 18:52 | disposition home or self-care (01) ==
PROVIDERS: Emergency Provider Emergency Medicine; PCP Nurse Practitioner Family
DX: R10.11 Right upper quadrant pain (principal); R11.2 Nausea with vomiting, unspecified; F99 Mental disorder, not otherwise specified; F32.9 Major depressive disorder, single episode, unspecified; F17.210 Nicotine dependence, cigarettes, uncomplicated; Z79.51 Long term (current) use of inhaled steroids; Z79.899 Other long term (current) drug therapy; Z88.2 Allergy status to sulfonamides; Z88.5 Allergy status to narcotic agent
CPT/HCPCS: 74177; 80053; 81001; 82150; 83690; 84703; 85025; 85651; 86140; 96361; 96374; 99285; J2405; Q9967

== ENCOUNTER → 2022-05-24 13:57 | Outpatient (CLI) | payer OTHER, SELFPAY ==
--- NOTE | 2022-05-24 14:10 | MR_ITS ---
FINAL REPORT CLINICAL HISTORY: Memory loss. SYMPTOMS WORSE X 2 YEARS. FINDINGS: Multi planar MR imaging was obtained through the brain without contrast. The midline structures appear intact. There is no evidence of Chiari malformation. There are small scattered foci of abnormal T2 signal in the deep white matter bilaterally. On diffusion-weighted images there is no evidence of restricted diffusion. The visualized paranasal sinuses demonstrate normal signal voids. The seventh and eighth nerve root complexes are intact. IMPRESSION: Changes of chronic microvascular ischemia. Reviewed, Interpreted and Dictated by Jude Gonzalez MD Transcribed by Elise Reddy Authenticated and [facility]
[2022-05-24 16:39] LABS: Thyroid Stimulating Hormone 1.06 uIU/mL (0.465-4.68)
[2022-05-24 17:15] LABS: Vitamin B12 271 pg/mL (239-931)
[2022-05-24 17:16] LABS: Folate 8.29 ng/mL
[2022-06-02 19:34] LABS: 1,25 Dihydroxy Vitamin D 45 pg/mL (.); 1,25-Dihydroxy, Vitamin D-2 <10 pg/mL (.); 1,25-Dihydroxy, Vitamin D-3 43 pg/mL (.)
== END ==
PROVIDERS: PCP Nurse Practitioner Family; Visit Provider Nurse Practitioner Family
DX: R41.3 Other amnesia (principal)
CPT/HCPCS: 36415; 70551; 82607; 82652; 82746; 84443

== ENCOUNTER → 2022-07-25 16:10 | Outpatient (CLI) | payer OTHER, SELFPAY ==
[2022-07-25 22:35] LABS: Ferritin 112 ng/ml (6.24-137)
[2022-07-27 10:26] LABS: Homocyst(e)ine 14.7 umol/L (0.0-14.5)
[2022-07-30 13:43] LABS: Methylmalonic Acid 191 nmol/L (0-378)
== END ==
PROVIDERS: PCP Nurse Practitioner Family; Visit Provider Nurse Practitioner Family
DX: E83.10 Disorder of iron metabolism, unspecified (principal); G25.81 Restless legs syndrome; E53.8 Deficiency of other specified B group vitamins; G47.10 Hypersomnia, unspecified
CPT/HCPCS: 36415; 82131; 82728; 83090

== ENCOUNTER → 2023-03-21 17:00 | Outpatient (CLI) | payer OTHER, SELFPAY | PROVIDERS: PCP Nurse Practitioner Family; Visit Provider Nurse Practitioner Family | DX: R10.9 Unspecified abdominal pain (principal) | CPT/HCPCS: 87086 ==

== ENCOUNTER 2023-08-02 17:16 | Emergency (ER) | payer OTHER, SELFPAY ==
[2023-08-02 17:30] VITALS: BP 134/85; PULSE 90; RESP 18; TEMP 36.7; O2SAT 98; BMI 26.2
--- NOTE | 2023-08-02 17:48 | EXP.UTC ---
Discharge Plan Disposition Patient Disposition: Home, Self-Care Condition: Good Prescriptions Prescriptions: New azithromycin [Zithromax] 250 mg tablet 250 mg PO UD DOSE PK Qty: 6 0RF Rx Instructions: Take two (2) tablets today, then one (1) tablet days #2 thru #5 benzonatate [benzonatate] 100 mg capsule 100 mg PO TIDP PRN (Reason: Cough) Qty: 30 0RF methylprednisolone 4 mg Tablets,Dose Pack 4 mg PO DIRECTED 6 Days Qty: 21 0RF Rx Instructions: Take 1 pack as directed for 6 days No Action cholecalciferol (vitamin D3) 25 mcg (1,000 unit) capsule 25 mcg PO DAILY promethazine 25 mg tablet 25 mg PO Q4-6H PRN mupirocin 2 % ointment 1 applic topical BID PRN ibuprofen 800 mg tablet 800 mg PO Q8H PRN ropinirole 0.25 mg tablet 0.25 mg PO DAILY Qty: 30 2RF omeprazole 40 mg capsule,delayed release(DR/EC) 40 mg PO DAILY 30 Days Qty: 30 6RF Jardiance 25 mg tablet 25 mg PO DAILY 30 Days Qty: 30 6RF lisdexamfetamine [Vyvanse] 30 mg capsule 30 mg PO DAILY Qty: 30 0RF venlafaxine 75 mg capsule,extended release 24hr See Rx Instructions .ROUTE .COMPLEX Qty: 30 1RF Dose Instruction: TAKE 1 CAPSULE BY MOUTH ONCE DAILY WITH 150MG CAPSULE; TOTAL DOSE IS 225MG DAILY Rx Instructions: TAKE 1 CAPSULE BY MOUTH ONCE DAILY WITH 150MG CAPSULE; TOTAL DOSE IS 225MG DAILY albuterol sulfate 90 mcg/actuation HFA aerosol inhaler 2 puff inhalation QID PRN (Reason: shortness of breath or wheezing) Qty: 8.5 0RF doxepin 25 mg capsule 25 mg PO QHS PRN (Reason: sleep) Qty: 30 1RF cetirizine 10 mg tablet See Rx Instructions .ROUTE .COMPLEX Qty: 30 0RF Dose Instruction: TAKE 1 TABLET BY MOUTH ONCE DAILY Rx Instructions: TAKE 1 TABLET BY MOUTH ONCE DAILY venlafaxine [Effexor XR] 150 mg capsule,extended release 24hr 150 mg PO DAILY Qty: 30 1RF Referrals Follow up/Referrals: Ana M Arceo APRN [Primary Care Provider] - See instructions Activity Restrictions/Add. Instructions Additional Instructions/Restrictions: Drink plenty of fluids. Take tylenol or ibuprofen for pain or fever. Take the medications as directed. Follow up with your regular doctor. GO TO THE ER FOR ANY WORSENING SYMPTOMS Clinical Impressions Clinical Impression: Sinusitis, Acute viral syndrome Instructions Patient Instructions: DI for Sinusitis Discharge ED Provider: [facility] [place] HPI General Stated complaint: body aches,vomiting,headache,fever Mode of Arrival: Ambulatory Source of Information: Patient Limitations: No Limitations Time Seen by Provider: 08/02/23 17:48 Description of Symptoms (Recalled from Triage Doc. by RN): Pt's symptoms are body aches, GUZMAN, fever, and fatigue HEENT Symptoms (Recalled from RN notes): Yes Resp Symptoms (Recalled from RN notes): No Skin Symptoms (Recalled from RN notes): No MS Symptoms (Recalled from RN notes): No Functional Status (Recalled from RN notes): n/a History of Present Illness Provider Complaint: She states that for the past 4 days she has had sinus congestion, chills, ear pain and malaise. Related Data Home Medications Medication Instructions Recorded Confirmed cholecalciferol (vitamin D3) 25 25 mcg PO DAILY 12/26/21 07/14/23 mcg (1,000 unit) capsule promethazine 25 mg tablet 25 mg PO Q4-6H PRN 06/20/22 07/14/23 mupirocin 2 % topical ointment 1 applic topical BID PRN 05/07/23 07/14/23 ibuprofen 800 mg tablet 800 mg PO Q8H PRN 07/14/23 Previous Rx's Medication Instructions Recorded empagliflozin 25 mg tablet 25 mg PO DAILY 30 days #30 tabs 03/11/23 (Jardiance) omeprazole 40 mg capsule,delayed 40 mg PO DAILY stomach 30 days #30 03/11/23 release caps lisdexamfetamine 30 mg capsule 30 mg PO DAILY #30 caps 06/25/23 (Vyvanse) venlafaxine 75 mg capsule,extended See Rx Instructions .Route 07/02/23 release 24 hr .COMPLEX #30 caps ropinirole 0.25 mg tablet 0.25 mg PO DAILY #30 tabs 07/14/23 albuterol sulfate 90 mcg/actuation 2 puff inhalation QID PRN 07/15/23 aerosol inhaler shortness of breath or wheezing #8.5 grams cetirizine 10 mg tablet See Rx Instructions .Route 08/01/23 .COMPLEX #30 tabs doxepin 25 mg capsule 25 mg PO QHS PRN sleep #30 caps 08/01/23 venlafaxine 150 mg 150 mg PO DAILY #30 caps 08/01/23 capsule,extended release 24 hr (Effexor XR) azithromycin 250 mg tablet 250 mg PO UD DOSE PK #6 tabs 08/02/23 (Zithromax) benzonatate 100 mg capsule 100 mg PO TIDP PRN Cough #30 caps 08/02/23 methylprednisolone 4 mg tablets in 4 mg PO DIRECTED 6 days #21 tabs 08/02/23 a dose pack Allergies Allergy/AdvReac Type Severity Reaction Status Date / Time codeine [CODEINE] Allergy Unknown Vomiting Verified 08/02/23 17:42 Sulfa (Sulfonamide Allergy Unknown Vomiting Verified 08/02/23 17:42 Antibiotics) [SULFA (SULFONAMIDE ANTIBIOTICS)] Worker's Comp Is this a Worker's Comp case?: No [facility] Disclaimer: The information contained in this section may have been updated after the patient was seen, as this information can be updated by other users. Medical History Attention deficit disorder (ADD) in adult Diabetes mellitus LGSIL on Pap smear of cervix Major depressive disorder Memory impairment Panic disorder Surgical History History of History of cholecystectomy History of endometrial ablation History of tonsillectomy History of tubal ligation History of umbilical hernia repair Family History Other Coronary artery disease Diabetes Heart attack Hyperlipidemia Hypertension Stroke Social History Smoking Status: Current every day smoker tobacco type: cigarettes packs per day: 1 second hand exposure: No alcohol intake: never substance use type: denies use current occupational status: employed Travel in the last 8 weeks: None household members: family and children housing: house number of children: 2 current occupation: [employer] current occupational exposures/hazards: No caffeine: Yes physical activity: none ROS Obtained: Yes All systems reviewed & no additional complaints except as documented Constitutional Constitutional: Reports as per HPI, Reports fever(s) and Reports poor appetite Eyes Eyes: Reports system reviewed and no additional complaints, except as documented ENT Ears, Nose, Mouth, and Throat: Reports as per HPI Cardiovascular Cardiovascular: Reports system reviewed and no additional complaints, except as documented and Denies chest pain Respiratory Respiratory: Denies shortness of breath, Denies chest congestion, Reports cough, Denies stridor and Denies wheezing Gastrointestinal Gastrointestingal: Reports system reviewed and no additional complaints, except as documented; Denies abdominal pain, diarrhea or vomiting Musculoskeletal Musculoskeletal: Reports system reviewed and no additional complaints, except as documented and Denies arthralgias Integumentary/Breasts Skin/Breast: Reports system reviewed and no additional complaints, except as documented and Denies rash Neurologic Neurologic: Denies paresthesias Allergic/Immunologic Allergic/Immunologic: Denies wheezing Physical Exam General General appearance: alert and in no apparent distress Eye Eye exam: Present normal appearance, PERRL and EOMI ENT ENT exam: Present mucous membranes moist and normal external ear exam Expanded ENT Exam External ear exam: Present normal external inspection TM/Canal exam: Bilateral TM: erythema and bulging Nose exam: Absent sinus tenderness Nasal speculum exam: Bilateral: normal Mouth exam: Present normal external inspection; Absent drooling Teeth exam: Present normal inspection Throat exam: Present tonsillar erythema and tonsillomegaly Neck Neck exam: Present normal inspection, full ROM and trachea midline; Absent tenderness, lymphadenopathy or thyromegaly Chest Chest inspection: Present normal inspection and symmetric chest wall rise; Absent tenderness or rash Respiratory Respiratory exam: Present normal lung sounds bilaterally; Absent respiratory distress, wheezes, stridor or accessory muscle use Cardiovascular Cardiovascular exam: Present regular rate, normal rhythm and normal heart sounds Abdominal Exam Abdominal exam: Present soft; Absent distention, tenderness, guarding, rebound or rigidity Extremities Exam Extremities exam: Present normal inspection, full ROM and normal capillary refill; Absent tenderness or calf tenderness Back Exam Back exam: Present normal inspection and full ROM; Absent tenderness Neurological Exam Neurological exam: Present alert and oriented X3 Psychiatric Psychiatric exam: Present normal affect and normal mood Skin Skin exam: Present warm, dry, intact and normal color Lymphatic Lymphatic Findings: no adenopathy Medical Decision Making Medical Records Medical records reviewed: No I reviewed the patient's medical records. [place] Inquiry Pt receiving controlled substance: No Vital Signs: 08/02/23 17:30 Temperature 98.1 F Temperature Source Oral Pulse Rate [Right Radial] 90 Respiratory Rate 18 Blood Pressure [Right Arm] 134/85 Blood Pressure Mean [Right Arm] 101 Blood Pressure Source [Right Arm] Automatic Cuff Blood Pressure Position [Right Arm] Sitting 02 Sat by Pulse Oximetry 98 Oxygen Delivery Method Room Air Lab Data Lab results reviewed: Yes I reviewed the patient's lab results.
[2023-08-02 17:58] LABS: UTC Influenza A Antigen Negative (Negative); UTC Influenza B Antigen Negative (Negative)
[2023-08-02 18:09] VITALS: BP 134/85; PULSE 90; RESP 18; TEMP 36.7; O2SAT 98
== END 2023-08-02 18:39 | disposition home or self-care (01) ==
PROVIDERS: Emergency Provider Nurse Practitioner Family; PCP Nurse Practitioner Family
DX: J01.90 Acute sinusitis, unspecified (principal); R09.81 Nasal congestion; R51.9 Headache, unspecified; H92.03 Otalgia, bilateral; B34.9 Viral infection, unspecified; F17.210 Nicotine dependence, cigarettes, uncomplicated; E11.9 Type 2 diabetes mellitus without complications; Z79.84 Long term (current) use of oral hypoglycemic drugs
CPT/HCPCS: 87635; 87804; 99212; 99214; G0463

== ENCOUNTER 2023-11-10 15:12 | Outpatient (CLI) | payer OTHER, SELFPAY ==
[2023-11-19 02:12] LABS: Amphetamines IA Negative ng/mL (Cutoff:50); Barbiturates, IA Negative ug/mL (Cutoff:0.1); Benzodiazepines, IA Negative ng/mL (Cutoff:20); Cocaine & Metabolite, IA Negative ng/mL (Cutoff:25); Methadone, IA Negative ng/mL (Cutoff:25); Opiates, IA Negative ng/mL (Cutoff:5); Oxycodones, IA Negative ng/mL (Cutoff:5); Phencyclidine, IA Negative ng/mL (Cutoff:8); Propoxyphene, IA Negative ng/mL (Cutoff:50); THC (Marijauna) Metabolite, IA Negative ng/mL (Cutoff:5)
== END 2023-11-10 23:59 | disposition home or self-care (01) ==
LOC: LAB 15:13
PROVIDERS: PCP Nurse Practitioner Family; Visit Provider Nurse Practitioner Psychiatric/Mental Health
DX: F98.8 Other specified behavioral and emotional disorders with onset usually occurring in childhood and adolescence (principal)
CPT/HCPCS: 36415; 80307

== ENCOUNTER 2023-11-26 19:18 | Emergency (ER) | payer OTHER, SELFPAY ==
[2023-11-26 19:19] VITALS: BP 119/70; PULSE 108; RESP 20; TEMP 37.6; O2SAT 98; BMI 26.6
--- NOTE | 2023-11-26 19:20 | ED_ITS ---
<Statement entered by Kamron Spivey MD - 11/26/23 21:37> I was consulted by the DARION, and we discussed the complexity of the problems being addressed. I approved the treatment and management plan for this patient's care in the emergency department, thus performing a substantive portion of the medical decision making. Kamron Spivey MD Discharge Plan Disposition Patient Disposition: Home, Self-Care Condition: Good Chief Complaint: Chest Pain Prescriptions Prescriptions: No Action cholecalciferol (vitamin D3) 25 mcg (1,000 unit) capsule 25 mcg PO DAILY promethazine 25 mg tablet 25 mg PO Q4-6H PRN mupirocin 2 % ointment 1 applic topical BID PRN ibuprofen 800 mg tablet 800 mg PO Q8H PRN tobramycin 0.3 % drops 1 drp ophthalmic (eye) Q4H 5 Days Qty: 5 0RF albuterol sulfate [Ventolin HFA] 90 mcg/actuation HFA aerosol inhaler See Rx Instructions .ROUTE .COMPLEX Qty: 18 0RF Dose Instruction: INHALE 2 PUFFS FOUR TIMES A DAY NEEDED FOR SHORTNESS OF BREATH OR WHEEZING Rx Instructions: INHALE 2 PUFFS FOUR TIMES A DAY NEEDED FOR SHORTNESS OF BREATH OR WHEEZING Jornay PM 20 mg capsule,del rel,ext rel sprink 20 mg PO HS Qty: 30 0RF azithromycin [Zithromax Z-Shamir] 250 mg tablet See Rx Instructions PO .COMPLEX Qty: 6 0RF Rx Instructions: For 250 mg dose pack: take 500 mg today (day 1), then 250 mg for 4 days (days 2-5) PO cetirizine 10 mg tablet See Rx Instructions .ROUTE .COMPLEX Qty: 30 2RF Dose Instruction: TAKE 1 TABLET BY MOUTH ONCE DAILY Rx Instructions: TAKE 1 TABLET BY MOUTH ONCE DAILY Nix Creme Rinse 1 % liquid 60 ml topical ONCE 1 Days Qty: 118 0RF Rx Instructions: repeat in 7 days Jornay PM 40 mg capsule,del rel,ext rel sprink 40 mg PO HS Qty: 30 0RF Jardiance 25 mg tablet See Rx Instructions .ROUTE .COMPLEX Qty: 30 5RF Dose Instruction: TAKE 1 TABLET BY MOUTH ONCE DAILY Rx Instructions: TAKE 1 TABLET BY MOUTH ONCE DAILY omeprazole 40 mg capsule,delayed release(DR/EC) See Rx Instructions .ROUTE .COMPLEX Qty: 30 5RF Dose Instruction: TAKE 1 CAPSULE BY MOUTH ONCE DAILY FOR STOMACH Rx Instructions: TAKE 1 CAPSULE BY MOUTH ONCE DAILY FOR STOMACH venlafaxine 75 mg capsule,extended release 24hr See Rx Instructions .ROUTE .COMPLEX Qty: 30 1RF Dose Instruction: TAKE 1 CAPSULE BY MOUTH ONCE DAILY WITH 150MG CAPSULE; TOTAL DOSE IS 225MG DAILY Rx Instructions: TAKE 1 CAPSULE BY MOUTH ONCE DAILY WITH 150MG CAPSULE; TOTAL DOSE IS 225MG DAILY ropinirole 0.25 mg tablet See Rx Instructions .ROUTE .COMPLEX Qty: 30 1RF Dose Instruction: TAKE 1 TABLET BY MOUTH ONCE DAILY Rx Instructions: TAKE 1 TABLET BY MOUTH ONCE DAILY azithromycin [Zithromax Z-Shamir] 250 mg tablet See Rx Instructions PO .COMPLEX Qty: 6 0RF Rx Instructions: For 250 mg dose pack: take 500 mg today (day 1), then 250 mg for 4 days (days 2-5) PO venlafaxine [Effexor XR] 150 mg capsule,extended release 24hr 150 mg PO DAILY Qty: 30 1RF Jornay PM 60 mg capsule,del rel,ext rel sprink 60 mg PO HS Qty: 30 0RF Referrals Follow up/Referrals: Ana M Arceo APRN [Primary Care Provider] - See instructions Activity Restrictions/Add. Instructions Additional Instructions/Restrictions: Please alternate Tylenol with Motrin every 4 hours as needed for symptom management. Follow-up with your PCP closely. Return to ER for any worsening signs or symptoms as needed. Clinical Impressions Clinical Impression: Acute COVID-19 Headache Qualifiers: Headache type: unspecified Headache chronicity pattern: acute headache I ntractability: not intractable Qualified Code(s): R51.9 - Headache, unspecified Instructions Patient Instructions: DI for COVID-19 (Suspected or Confirmed ), Preventing the Spread of Coronavirus Discharge Instructions Discharge ED Provider: Kamron Spivey General Adult HPI <BILL Tolbert - Last Filed: 11/26/23 21:21> General Chief complaint: Chest Pain Stated complaint: GUZMAN, numbness in hands Time Seen by Provider: 11/26/23 19:20 History of Present Illness HPI narrative: She presents for evaluation unilateral headache and paresthesias. Patient states she was woken in the middle of the night with what was initially chest pain that then evolved into left-sided headache. Throughout the day it has come and gone. She does not describe it as thunderclap. However she does not have routine history of migraines either. Patient states when the headache is been really bad she is had some numbness in her fingertips. She denies loss of vision or change in vision or any sensory deficits. This is not the worst headache in her life. She does report nausea and currently at the time my exam she reports that she has no headache. She denies chest pain fever chills hemoptysis hematochezia hematemesis hematuria melena Related Data Home Medications Medication Instructions Recorded Confirmed cholecalciferol (vitamin D3) 25 25 mcg PO DAILY 12/26/21 11/24/23 mcg (1,000 unit) capsule promethazine 25 mg tablet 25 mg PO Q4-6H PRN 06/20/22 11/24/23 mupirocin 2 % topical ointment 1 applic topical BID PRN 05/07/23 11/24/23 ibuprofen 800 mg tablet 800 mg PO Q8H PRN 07/14/23 11/24/23 Previous Rx's Medication Instructions Recorded tobramycin 0.3 % eye drops 1 drp ophthalmic (eye) Q4H 5 days 08/04/23 #5 mL albuterol sulfate 90 mcg/actuation See Rx Instructions .Route 08/27/23 aerosol inhaler (Ventolin HFA) .COMPLEX #18 grams methylphenidate HCl 20 mg 20 mg PO HS #30 ea 08/28/23 capsule,delayed release,ext release sprinkle (Jornay PM) azithromycin 250 mg tablet See Rx Instructions PO .COMPLEX #6 09/08/23 (Zithromax Z-Shamir) tabs cetirizine 10 mg tablet See Rx Instructions .Route 09/23/23 .COMPLEX #30 tabs methylphenidate HCl 40 mg 40 mg PO HS #30 ea 10/17/23 capsule,delayed release,ext release sprinkle (Jornay PM) permethrin 1 % topical liquid (Nix 60 ml topical ONCE 1 day #118 mL 10/17/23 Creme Rinse) empagliflozin 25 mg tablet See Rx Instructions .Route 10/20/23 (Jardiance) .COMPLEX #30 tabs omeprazole 40 mg capsule,delayed See Rx Instructions .Route 10/20/23 release .COMPLEX #30 caps venlafaxine 75 mg capsule,extended See Rx Instructions .Route 10/20/23 release 24 hr .COMPLEX #30 caps ropinirole 0.25 mg tablet See Rx Instructions .Route 10/31/23 .COMPLEX #30 tabs azithromycin 250 mg tablet See Rx Instructions PO .COMPLEX #6 11/04/23 (Zithromax Z-Shamir) tabs venlafaxine 150 mg 150 mg PO DAILY #30 caps 11/10/23 capsule,extended release 24 hr (Effexor XR) methylphenidate HCl 60 mg 60 mg PO HS #30 ea 11/11/23 capsule,delayed release,ext release sprinkle (Jornay PM) Allergies Allergy/AdvReac Type Severity Reaction Status Date / Time codeine [CODEINE] Allergy Unknown Vomiting Verified 08/02/23 17:42 Sulfa (Sulfonamide Allergy Unknown Vomiting Verified 08/02/23 17:42 Antibiotics) [SULFA (SULFONAMIDE ANTIBIOTICS)] [facility] <BILL Tolbert - Last Filed: 11/26/23 21:21> [facility] Disclaimer: The information contained in this section may have been updated after the patient was seen, as this information can be updated by other users. Medical History Attention deficit disorder (ADD) in adult Diabetes mellitus LGSIL on Pap smear of cervix Major depressive disorder Memory impairment Panic disorder Surgical History History of History of cholecystectomy History of endometrial ablation History of tonsillectomy History of tubal ligation History of umbilical hernia repair Family History Other Coronary artery disease Diabetes Heart attack Hyperlipidemia Hypertension Stroke Social History Smoking Status: Current every day smoker tobacco type: cigarettes packs per day: 1 second hand exposure: No alcohol intake: never substance use type: denies use current occupational status: employed Travel in the last 8 weeks: None household members: family and children housing: house number of children: 2 current occupation: [employer] current occupational exposures/hazards: No caffeine: Yes physical activity: none <BILL Tolbert - Last Filed: 11/26/23 21:21> ROS Obtained: Yes Systems reviewed as appropriate & no additional complaints except as documented Physical Exam <BILL Tolbert - Last Filed: 11/26/23 21:21> General General appearance: alert and in no apparent distress Head Head exam: atraumatic and normal inspection Eye Eye exam: Present normal appearance, PERRL and EOMI; Absent scleral icterus, conjunctival redness, jaundice, conjunctival injection or nystagmus ENT ENT exam: Present normal exam, normal oropharynx and mucous membranes moist Neck Neck exam: Present normal inspection, full ROM, trachea midline and tenderness (Midline C-spine and paraspinal muscles); Absent lymphadenopathy Chest Chest inspection: Present normal inspection and symmetric chest wall rise Respiratory Respiratory exam: Present normal lung sounds bilaterally; Absent respiratory distress, wheezes or accessory muscle use Cardiovascular Cardiovascular exam: Present regular rate, normal rhythm and normal heart sounds Abdominal Exam Abdominal exam: Present soft and normal bowel sounds; Absent tenderness Extremities Exam Extremities exam: Present normal inspection and full ROM Back Exam Back exam: Present normal inspection and full ROM; Absent tenderness, CVA tenderness (R), CVA tenderness (L), paraspinal tenderness or vertebral tenderness Neurological Exam Neurological exam: Present alert, oriented X3, CN II-XII intact and normal gait; Absent motor sensory deficit Psychiatric Psychiatric exam: Present normal affect and normal mood Skin Skin exam: Present warm, dry and normal color Medical Decision Making <BILL Tolbert - Last Filed: 11/26/23 21:21> Medical Records Medical records reviewed: Yes I reviewed the patient's medical records. Oj Inquiry Pt receiving controlled substance: No Vital Signs: 11/26/23 19:19 11/26/23 20:16 Temperature 99.6 F Temperature Source Oral Pulse Rate 108 H Pulse Rate [Right Radial] 108 H Respiratory Rate 20 Blood Pressure [Right Arm] 119/70 Blood Pressure Mean [Right Arm] 86 02 Sat by Pulse Oximetry 98 Oxygen Delivery Method Room Air Lab Data Lab results reviewed: Yes I reviewed the patient's lab results. Lab Results 11/26/23 19:45: WBC 7.9, RBC 4.65, Hgb 14.5, Hct 46.2, MCV 99.4 H, MCH 31.1, M CHC 31.3 L, RDW 14.0, Plt Count 210, MPV 9.1, Neut % (Auto) 87.2 H, Lymph % (Auto) 5.0 L, [place] % (Auto) 5.7, Eos % (Auto) 1.2, Baso % (Auto) 0.8, Neut # (Auto) 6.9, Lymph # (Auto) 0.4 L, [place] # (Auto) 0.5, Eos # (Auto) 0.1, Baso # (Auto) 0.1, Total Counted 100, Neutrophils % (Manual) 80 H, Lymphocytes % (Manual) 9 L, Monocytes % (Manual) 11 H, Platelet Estimate Normal, RBC Morphology Normal, PT 9.9 L, INR 0.91, Sodium 135 L, Potassium 3.9, Chloride 108 H, Carbon Dioxide 22, Anion Gap 8.9, BUN 16, Creatinine 0.80, Estimated Creat Clear 108, Estimated GFR 80, Est GFR ( Amer) 97, Glucose 124 H, Calcium 9.0, Magnesium 2.1, Total Bilirubin 0.3, AST 21, ALT 20, Alkaline Phosphatase 68, Troponin I < 0.01, Total Protein 6.9, Albumin 4.0, Globulin 2.9, Albumin/Globulin Ratio 1.4, TSH 0.78, Serum HCG, Qual Negative 11/26/23 19:50: SARS-CoV-2 (PCR) Detected A, Influenza A Untype (PCR) Not detected, Influenza Type B (PCR) Not detected 11/26/23 19:45 11/26/23 19:45 Orders (Tests/Meds): ED MEDICATIONS Generic Name Dose Route Start Last Admin Trade Name Freq PRN Reason Stop Dose Admin Methocarbamol 500 mg 11/26/23 21:00 11/26/23 20:07 Methocarbamol 500mg Tablet PO 12/26/23 20:59 Not Given BID ADINA Sodium Chloride 10 ml 11/26/23 20:27 Sodium Chloride 0.9% 10ml Syr (Rad Only) IV 12/26/23 20:26 NEEDED PRN Maintain IV Site Discontinued Medications Generic Name Dose Route Start Last Admin Trade Name Freq PRN Reason Stop Dose Admin Acetaminophen 1,000 mg 11/26/23 19:32 11/26/23 19:49 Acetaminophen 1,000mg/100ml Vial IV 11/26/23 19:33 1,000 mg ONCE ONE Administration Dexamethasone Sodium Phosphate 10 mg 11/26/23 19:32 11/26/23 19:50 Dexamethasone 4mg/Ml 5ml Mdv IV 11/26/23 19:33 10 mg ONCE ONE Administration Diphenhydramine HCl 50 mg 11/26/23 19:32 11/26/23 19:49 Diphenhydramine 50mg/Ml Vial IV 11/26/23 19:33 50 mg ONCE ONE Administration Lactated Ringer's 1,000 mls @ 999 mls/hr 11/26/23 19:32 11/26/23 19:50 Lactated Ringer's 1000 Ml Bag IV 11/26/23 20:32 999 mls/hr .Q1H1M ONE Administration Iopamidol 170 ml 11/26/23 20:27 11/26/23 20:31 Iopamidol-370 (76%);100ml Bottle IV 11/26/23 20:28 170 ml ONCE ONE Administration Ketorolac Tromethamine 15 mg 11/26/23 19:32 11/26/23 19:49 Ketorolac 30mg/Ml Vial IV 11/26/23 19:33 15 mg ONCE ONE Administration Prochlorperazine Edisylate 10 mg 11/26/23 19:32 11/26/23 19:49 Prochlorperazine 10mg/2ml Vial IV 11/26/23 19:33 10 mg ONCE ONE Administration Sodium Chloride 100 ml 11/26/23 20:27 11/26/23 20:30 0.9 % Sodium Chloride 50 Ml Vial IV 11/26/23 20:28 100 ml ONCE ONE Administration ORDERS Category Date Time Status CT angio chest PE protocol Stat Cat Scan 11/26/23 19:[address] angio head Stat Cat Scan 11/26/23 19:[address] angio neck Stat Cat Scan 11/26/23 19:[address] cervical spine wo con Stat Cat Scan 11/26/23 19:[address] head/brain wo con Stat Cat Scan 11/26/23 19:32 Completed CBC w/Auto Diff [Complete Blood Count Auto Diff] Stat Lab 11/26/23 19:45 Completed CMP [Comprehensive Metabolic Panel] Stat Lab 11/26/23 19:45 Completed HCG Qualitative, Serum Stat Lab 11/26/23 19:45 Completed INR [Prothrombin Time INR] Stat Lab 11/26/23 19:45 Completed Magnesium Stat Lab 11/26/23 19:45 Completed Rapid PCR Covid and Flu A/B Stat Lab 11/26/23 19:50 Completed TSH [Thyroid Stimulating Hormone] Stat Lab 11/26/23 19:45 Completed Trop I [Troponin I] Stat Lab 11/26/23 19:45 Completed Troponin I Q3H Lab 11/26/23 22:45 Ordered Troponin I Q3H Lab 11/27/23 01:45 Ordered Medical Decision Narrative: In summary patient is a 38-year-old female who presents to the emergency department for evaluation of headache and chest pain. Patient is normotensive with a blood pressure of 119/70 but a heart rate of 108 satting at 98% on room air breathing 20 times a minute upon arrival, afebrile with a Kirsten Coma Score 15. Physical exam is remarkable for midline C-spine tenderness but full range of motion of the C-spine, no nuchal rigidity or meningeal signs, clear and equal breath sounds normal heart sounds pupils equal round reactive to light and accommodation no focal neurologic deficits.. Differential diagnosis includes stroke versus meningitis versus migraine versus other viral or bacterial infection and there is sequela etc. Initial workup will be conducted with mental logic labs CT scan and CTA of the head neck and chest. Initial interventions include crystalloid bolus Toradol Decadron Tylenol. Initial workup reviewed by me shows that she has a normal white count with no shift in the remainder of her hematologic labs are nonactionable however her COVID test is positive. My informal interpretation of all of her imaging shows no acute processes prior to radiology read.. Upon repeat evaluation patient had improved symptoms after initial interventions. Given this patient is appropriate for discharge at this time with recommendations to continue Tylenol alternating with Motrin every 4 hours as needed. Follow-up with PCP for any worsening signs or symptoms or return to ER <Kamron Spivey MD - Last Filed: 11/26/23 19:41> Vital Signs: 11/26/23 19:19 11/26/23 20:16 Temperature 99.6 F Temperature Source Oral Pulse Rate 108 H Pulse Rate [Right Radial] 108 H Respiratory Rate 20 Blood Pressure [Right Arm] 119/70 Blood Pressure Mean [Right Arm] 86 02 Sat by Pulse Oximetry 98 Oxygen Delivery Method Room Air Lab Data Lab Results 11/26/23 19:45: WBC 7.9, RBC 4.65, Hgb 14.5, Hct 46.2, MCV 99.4 H, MCH 31.1, M CHC 31.3 L, RDW 14.0, Plt Count 210, MPV 9.1, Neut % (Auto) 87.2 H, Lymph % (Auto) 5.0 L, [place] % (Auto) 5.7, Eos % (Auto) 1.2, Baso % (Auto) 0.8, Neut # (Auto) 6.9, Lymph # (Auto) 0.4 L, [place] # (Auto) 0.5, Eos # (Auto) 0.1, Baso # (Auto) 0.1, Total Counted 100, Neutrophils % (Manual) 80 H, Lymphocytes % (Manual) 9 L, Monocytes % (Manual) 11 H, Platelet Estimate Normal, RBC Morphology Normal, PT 9.9 L, INR 0.91, Sodium 135 L, Potassium 3.9, Chloride 108 H, Carbon Dioxide 22, Anion Gap 8.9, BUN 16, Creatinine 0.80, Estimated Creat Clear 108, Estimated GFR 80, Est GFR ( Amer) 97, Glucose 124 H, Calcium 9.0, Magnesium 2.1, Total Bilirubin 0.3, AST 21, ALT 20, Alkaline Phosphatase 68, Troponin I < 0.01, Total Protein 6.9, Albumin 4.0, Globulin 2.9, Albumin/Globulin Ratio 1.4, TSH 0.78, Serum HCG, Qual Negative 11/26/23 19:50: SARS-CoV-2 (PCR) Detected A, Influenza A Untype (PCR) Not detected, Influenza Type B (PCR) Not detected Orders (Tests/Meds): ED MEDICATIONS Generic Name Dose Route Start Last Admin Trade Name Freq PRN Reason Stop Dose Admin Methocarbamol 500 mg 11/26/23 21:00 11/26/23 20:07 Methocarbamol 500mg Tablet PO 12/26/23 20:59 Not Given BID ADINA Sodium Chloride 10 ml 11/26/23 20:27 Sodium Chloride 0.9% 10ml Syr (Rad Only) IV 12/26/23 20:26 NEEDED PRN Maintain IV Site Discontinued Medications Generic Name Dose Route Start Last Admin Trade Name Freq PRN Reason Stop Dose Admin Acetaminophen 1,000 mg 11/26/23 19:32 11/26/23 19:49 Acetaminophen 1,000mg/100ml Vial IV 11/26/23 19:33 1,000 mg ONCE ONE Administration Dexamethasone Sodium Phosphate 10 mg 11/26/23 19:32 11/26/23 19:50 Dexamethasone 4mg/Ml 5ml Mdv IV 11/26/23 19:33 10 mg ONCE ONE Administration Diphenhydramine HCl 50 mg 11/26/23 19:32 11/26/23 19:49 Diphenhydramine 50mg/Ml Vial IV 11/26/23 19:33 50 mg ONCE ONE Administration Lactated Ringer's 1,000 mls @ 999 mls/hr 11/26/23 19:32 11/26/23 19:50 Lactated Ringer's 1000 Ml Bag IV 11/26/23 20:32 999 mls/hr .Q1H1M ONE Administration Iopamidol 170 ml 11/26/23 20:27 11/26/23 20:31 Iopamidol-370 (76%);100ml Bottle IV 11/26/23 20:28 170 ml ONCE ONE Administration Ketorolac Tromethamine 15 mg 11/26/23 19:32 11/26/23 19:49 Ketorolac 30mg/Ml Vial IV 11/26/23 19:33 15 mg ONCE ONE Administration Prochlorperazine Edisylate 10 mg 11/26/23 19:32 11/26/23 19:49 Prochlorperazine 10mg/2ml Vial IV 11/26/23 19:33 10 mg ONCE ONE Administration Sodium Chloride 100 ml 11/26/23 20:27 11/26/23 20:30 0.9 % Sodium Chloride 50 Ml Vial IV 11/26/23 20:28 100 ml ONCE ONE Administration ORDERS Category Date Time Status CT angio chest PE protocol Stat Cat Scan 11/26/23 19:[address] angio head Stat Cat Scan 11/26/23 19:[address] angio neck Stat Cat Scan 11/26/23 19:[address] cervical spine wo con Stat Cat Scan 11/26/23 19:[address] head/brain wo con Stat Cat Scan 11/26/23 19:32 Completed CBC w/Auto Diff [Complete Blood Count Auto Diff] Stat Lab 11/26/23 19:45 Completed CMP [Comprehensive Metabolic Panel] Stat Lab 11/26/23 19:45 Completed HCG Qualitative, Serum Stat Lab 11/26/23 19:45 Completed INR [Prothrombin Time INR] Stat Lab 11/26/23 19:45 Completed Magnesium Stat Lab 11/26/23 19:45 Completed Rapid PCR Covid and Flu A/B Stat Lab 11/26/23 19:50 Completed TSH [Thyroid Stimulating Hormone] Stat Lab 11/26/23 19:45 Completed Trop I [Troponin I] Stat Lab 11/26/23 19:45 Completed Troponin I Q3H Lab 11/26/23 22:45 Ordered Troponin I Q3H Lab 11/27/23 01:45 Ordered ECG Data Tracing #1: Independently interpreted by me, rate is 103, rhythm is regular, no ST elevation in anatomical contiguous leads, QTc 371. Critical Care <BILL Tolbert - Last Filed: 11/26/23 21:21> Critical Care Time Critical Care Time: No
--- NOTE | 2023-11-26 19:32 | CT_ITS ---
PROCEDURE INFORMATION: Exam: CTA Neck With Contrast Exam date and time: 11/26/2023 8:27 PM Age: 38 years old Clinical indication: Pain; Headache; Additional info: Headache, paresthesia TECHNIQUE: Imaging protocol: Computed tomographic angiography of the neck with contrast. Exam focused on the cervical segments of the vasculature. 3D rendering (Not supervised by radiologist): MIP and/or 3D reconstructed images were created by the technologist. Radiation optimization: All CT scans at this facility use at least one of these dose optimization techniques: automated exposure control; mA and/or kV adjustment per patient size (includes targeted exams where dose is matched to clinical indication); or iterative reconstruction. Contrast material: ISOUVE 370; Contrast volume: 100 ml; Contrast route: INTRAVENOUS (IV); COMPARISON: CT CERVICAL SPINE WO CON 11/26/2023 8:25 PM FINDINGS: Right common carotid artery: No stenosis. No dissection or occlusion. Right internal carotid artery: No stenosis of the extracranial segment. No dissection or occlusion. Right external carotid artery: No occlusion or stenosis of the origin. Left common carotid artery: No stenosis. No dissection or occlusion. Left internal carotid artery: No stenosis of the extracranial segment. No dissection or occlusion. Left external carotid artery: No occlusion or stenosis of the origin. Right vertebral artery: No stenosis. No dissection or occlusion. Left vertebral artery: No stenosis. No dissection or occlusion. Soft tissues: Normal. No significant soft tissue swelling. Bones/joints: No acute fracture. IMPRESSION: No acute arterial abnormality identified in the neck. REFERENCES: NASCET CRITERIA. The degree of stenosis in the cervical segment of the internal carotid artery is based on NASCET criteria. Normal is no stenosis. Mild is less than 50% stenosis. Moderate is 50-69% stenosis. Severe is 70% to 99% stenosis. Total occlusion is no detectable patent lumen.
--- NOTE | 2023-11-26 19:32 | CT_ITS ---
PROCEDURE INFORMATION: Exam: CT Head Without Contrast Exam date and time: 11/26/2023 8:23 PM Age: 38 years old Clinical indication: Pain; Headache not specified; Additional info: Acute headache, paresthesia TECHNIQUE: Imaging protocol: Computed tomography of the head without contrast. Radiation optimization: All CT scans at this facility use at least one of these dose optimization techniques: automated exposure control; mA and/or kV adjustment per patient size (includes targeted exams where dose is matched to clinical indication); or iterative reconstruction. COMPARISON: MR HEAD/BRAIN WO CON 05/24/2022 2:11 PM FINDINGS: Brain: There is no acute intracranial hemorrhage or abnormal extra-axial fluid collection identified. There is no intracranial mass effect or shift of midline structures. The wong-white differentiation is preserved throughout. There is no sulcal effacement. The basilar cisterns are open. Cerebral ventricles: No hydrocephalus or ventricular effacement. Paranasal sinuses: Visualized sinuses are unremarkable. No fluid levels. Mastoid air cells: Visualized mastoid air cells are well aerated. Bones: No calvarial fracture or destructive osseous lesions are seen. Soft tissues: Unremarkable. Other findings: Motion artifact significantly degrades anatomic detail on this study. IMPRESSION: No acute intracranial pathology identified by CT.
--- NOTE | 2023-11-26 19:32 | CT_ITS ---
PROCEDURE INFORMATION: Exam: CT Cervical Spine Without Contrast Exam date and time: 11/26/2023 8:25 PM Age: 38 years old Clinical indication: Neck pain; Additional info: Headache, paresthesia TECHNIQUE: Imaging protocol: Computed tomography of the cervical spine without contrast. Radiation optimization: All CT scans at this facility use at least one of these dose optimization techniques: automated exposure control; mA and/or kV adjustment per patient size (includes targeted exams where dose is matched to clinical indication); or iterative reconstruction. COMPARISON: CT CERVICAL SPINE WO CON 10/01/2021 10:56 PM FINDINGS: Bones: There is right lower cervical spine. No anterior wedging. No acute lucent fracture lines visualized. There is auto fusion versus congenital fusion T1-T2 vertebrae. Spinal cord: There is no central canal or neural foraminal stenosis demonstrated by CT. Lungs: Lung apices are normal. Soft tissues: Unremarkable. IMPRESSION: No acute cervical spinal abnormality demonstrated by CT.
--- NOTE | 2023-11-26 19:37 | ECG_ITS ---
APPROVED REPORT Exam: Resting ECG HR:103 bpm ECG Measurements Heart Rate 103 AXES WA 141 P 67 QRSd 92 QRS 78 QT 312 T 48 QTc 371 Conclusion SINUS TACHYCARDIA ABNORMAL RHYTHM ECG Electronically signed by : ARCADIO HAILE, 11/26/2023 21:40:05
--- NOTE | 2023-11-26 19:37 | CT_ITS ---
PROCEDURE INFORMATION: Exam: CTA Chest With Contrast Exam date and time: 11/26/2023 8:31 PM Age: 38 years old Clinical indication: Pain; Chest pressure; Additional info: Headache, paresthesia, chest pain TECHNIQUE: Imaging protocol: Computed tomographic angiography of the chest with contrast. Exam focused on the arteries. 3D rendering (Not supervised by radiologist): MIP and/or 3D reconstructed images were created by the technologist. Radiation optimization: All CT scans at this facility use at least one of these dose optimization techniques: automated exposure control; mA and/or kV adjustment per patient size (includes targeted exams where dose is matched to clinical indication); or iterative reconstruction. Contrast material: ISOVUE 370; Contrast volume: 70 ml; Contrast route: INTRAVENOUS (IV); COMPARISON: CR XR CHEST AP 10/01/2021 10:48 PM FINDINGS: Pulmonary arteries: No CT angiography evidence of pulmonary embolism. Aorta: Unremarkable. No aortic aneurysm. No aortic dissection. Lungs: Dependent bilateral lung base opacities favor atelectasis. Right lower lobe calcified granuloma measures 13.8 mm in diameter. Pleural spaces: Unremarkable. No pneumothorax. No pleural effusion. Heart: Unremarkable. No cardiomegaly. No pericardial effusion. Lymph nodes: Unremarkable. No enlarged lymph nodes. Gallbladder and bile ducts: There are surgical clips within the gallbladder fossa. Spleen: Multiple benign-appearing calcific densities of the spleen. Bones/joints: Unremarkable. No acute fracture. Soft tissues: Unremarkable. IMPRESSION: No CT angiography evidence of pulmonary embolism.
--- NOTE | 2023-11-26 19:37 | CT_ITS ---
PROCEDURE INFORMATION: Exam: CTA Head With Contrast, Arteriography Exam date and time: 11/26/2023 8:27 PM Age: 38 years old Clinical indication: Pain; Headache; Additional info: Headache, paresthesia, chest pain TECHNIQUE: Imaging protocol: Computed tomographic angiography of the head with contrast. Exam focused on the arteries. 3D rendering (Not supervised by radiologist): MIP and/or 3D reconstructed images were created by the technologist. Radiation optimization: All CT scans at this facility use at least one of these dose optimization techniques: automated exposure control; mA and/or kV adjustment per patient size (includes targeted exams where dose is matched to clinical indication); or iterative reconstruction. Contrast material: ISOVUE 370; Contrast volume: 70 ml; Contrast route: INTRAVENOUS (IV); COMPARISON: CT HEAD/BRAIN WO CON 11/26/2023 8:23 PM FINDINGS: ANTERIOR CIRCULATION: Right internal carotid artery: Intracranial segment is patent with no significant stenosis. No aneurysm. Right middle cerebral artery: No occlusion or significant stenosis. No aneurysm. Right anterior cerebral artery: No occlusion or significant stenosis. No aneurysm. Left internal carotid artery: Intracranial segment is patent with no significant stenosis. No aneurysm. Left middle cerebral artery: No occlusion or significant stenosis. No aneurysm. Left anterior cerebral artery: No occlusion or significant stenosis. No aneurysm. POSTERIOR CIRCULATION: Right vertebral artery: No occlusion or significant stenosis. No aneurysm. Left vertebral artery: No occlusion or significant stenosis. No aneurysm. Basilar artery: No occlusion or significant stenosis. No aneurysm. Right posterior cerebral artery: No occlusion or significant stenosis. No aneurysm. Left posterior cerebral artery: No occlusion or significant stenosis. No aneurysm. Brain: No definite mass, mass effect, or midline shift. Cerebral ventricles: No ventriculomegaly. Bones/joints: Unremarkable. No acute fracture. Soft tissues: Unremarkable. IMPRESSION: No significant abnormality involving the major intracranial arteries.
[2023-11-26] MEDS: diphenhydrAMINE 50MG/ML VIAL 50 MG IV (19:49)
[2023-11-26] MEDS: KETOROLAC 30MG/ML VIAL 15 MG IV (19:49)
[2023-11-26] MEDS: ACETAMINOPHEN 1,000MG/100ML VIAL 1000 MG IV (19:49)
[2023-11-26] MEDS: PROCHLORPERAZINE 10MG/2ML VIAL 10 MG IV (19:49)
[2023-11-26] MEDS: DEXAMETHASONE 4MG/ML 5ML MDV 10 MG IV (19:50)
[2023-11-26] MEDS: LACTATED RINGERS 1000ML 1,000 ML 999 ML IV (19:50)
[2023-11-26] MEDS: METHOCARBAMOL 500MG TABLET 500 MG PO (19:51)
[2023-11-26 19:55] LABS: Basophils # 0.1 K/mm3 (0-0.2); Basophils % 0.8 % (0.1-2.0); Eosinophils # 0.1 K/mm3 (0.0-0.4); Eosinophils % 1.2 % (0.1-12.0); Hematocrit 46.2 % (37.0-47.0); Hemoglobin 14.5 g/dL (12.2-16.2); Lymphocytes # 0.4 K/mm3 (0.7-4.5); Mean Corpuscular HGB Conc 31.3 g/dL (31.8-35.4); Mean Corpuscular Hemoglobin 31.1 pg (27.0-31.2); Mean Corpuscular Volume 99.4 fl (81-99); Mean Platelet Volume 9.1 fl (7.4-10.4); Monocytes # 0.5 K/mm3 (0.1-1.0); Monocytes % 5.7 % (1.7-9.3); Neutrophils # 6.9 K/mm3 (1.8-7.8); Neutrophils % 87.2 % (37.0-80.0); Platelet Count 210 K/mm3 (142-424); Red Blood Count 4.65 M/mm3 (4.20-5.40); White Blood Count 7.9 K/mm3 (4.8-10.8)
[2023-11-26 19:57] LABS: MANUAL DIFFERENTIAL MANUAL DIFFERENTIAL (MANUAL DIFF)
[2023-11-26 20:03] LABS: Chloride 108 mmol/L (98-107); Potassium 3.9 mmoL/L (3.5-5.1); Sodium 135 mmol/L (136-145)
[2023-11-26 20:04] LABS: HCG Qualitative, Serum Negative (Negative)
[2023-11-26 20:05] LABS: Magnesium 2.1 mg/dl (1.6-2.3)
[2023-11-26 20:06] LABS: Alanine Aminotransferase 20 U/L (12-78); Albumin/Globulin Ratio 1.4 (1.1-1.8); Alkaline Phosphatase 68 U/L (38-126); Anion Gap 8.9 mEq/L (5-15); Aspartate Amino Transferase 21 U/L (14-36); Bilirubin,Total 0.3 mg/dl (0.2-1.3); Blood Urea Nitrogen 16 mg/dl (7-17); Carbon Dioxide 22 mmol/L (22.0-30.0); Creatinine Clearance Estimated 108 mL/min (50-200); Estimated Glomerular Filt Rate 80 ml/min (>60); GFR (African American) 97 ML/MIN (>60); Globulin 2.9 g/dL (1.3-3.2); Glucose 124 mg/dl (74-100); Total Protein,Serum 6.9 g/dl (6.3-8.2)
[2023-11-26 20:07] LABS: INR 0.91 (0.9-1.1); Prothrombin Time 9.9 seconds (10.1-12.5)
[2023-11-26 20:13] LABS: Influenza A, PCR Not Detected (NotDetected); Influenza B, PCR Not Detected (NotDetected)
[2023-11-26 20:15] LABS: Lymphocytes % 9 % (10-50); Monocytes % 11 % (2-9); Neutrophils % 80 % (42-76); Total Cells Counted 100
[2023-11-26 20:16] VITALS: PULSE 108
[2023-11-26 20:16] LABS: Platelet Estimate Normal; RBC Morphology Normal
[2023-11-26 20:22] LABS: Troponin I < 0.01 ng/ml (0.00-0.034)
[2023-11-26] MEDS: 0.9 % SODIUM CHLORIDE 50 ML VIAL 100 ML IV (20:30)
[2023-11-26] MEDS: IOPAMIDOL-370 (76%);100ML BOTTLE 170 ML IV (20:31)
[2023-11-26 20:34] LABS: Coronavirus 19, PCR Detected (NotDetected)
[2023-11-26 20:38] LABS: Thyroid Stimulating Hormone 0.78 uIU/mL (0.465-4.68)
[2023-11-26 21:28] VITALS: BP 119/70; PULSE 91; RESP 20; TEMP 36.9; O2SAT 98
== END 2023-11-26 21:32 | disposition home or self-care (01) ==
PROVIDERS: Physician Assistant; Emergency Provider Emergency Medicine; PCP Nurse Practitioner Family
DX: U07.1 COVID-19 (principal); R51.9 Headache, unspecified; R20.2 Paresthesia of skin; R11.0 Nausea; E11.9 Type 2 diabetes mellitus without complications; F17.210 Nicotine dependence, cigarettes, uncomplicated; Z79.84 Long term (current) use of oral hypoglycemic drugs
CPT/HCPCS: 70450; 70496; 70498; 71275; 72125; 80053; 83735; 84443; 84484; 84703; 85007; 85025; 85610; 87636; 93005; 96361; 96374; 96375; 99285; J0131; J7120; Q9967

== ENCOUNTER 2023-12-30 11:48 | Outpatient (CLI) | payer OTHER, SELFPAY ==
[2023-12-30 16:56] LABS: Basophils # 0.1 K/mm3 (0-0.2); Basophils % 0.9 % (0.1-2.0); Eosinophils # 0.1 K/mm3 (0.0-0.4); Eosinophils % 1.2 % (0.1-12.0); Hematocrit 47.9 % (37.0-47.0); Hemoglobin 15.3 g/dL (12.2-16.2); Mean Platelet Volume 10.5 fl (7.4-10.4); Monocytes # 0.6 K/mm3 (0.1-1.0); Monocytes % 6.1 % (1.7-9.3); Neutrophils # 7.1 K/mm3 (1.8-7.8); Neutrophils % 71.9 % (37.0-80.0); Platelet Count 257 K/mm3 (142-424); Red Blood Count 4.94 M/mm3 (4.20-5.40); Red Cell Distribution Width 13.6 % (11.5-17.5); White Blood Count 9.8 K/mm3 (4.8-10.8)
[2023-12-30 17:47] LABS: Alanine Aminotransferase 12 U/L (12-78); Albumin Level 4.2 g/dl (3.5-5.0); Albumin/Globulin Ratio 1.6 (1.1-1.8); Alkaline Phosphatase 84 U/L (38-126); Anion Gap 11.5 mEq/L (5-15); Aspartate Amino Transferase 15 U/L (14-36); Bilirubin,Total 0.6 mg/dl (0.2-1.3); Blood Urea Nitrogen 20 mg/dl (7-17); Calcium 9.3 mg/dl (8.4-10.2); Carbon Dioxide 22 mmol/L (22.0-30.0); Chloride 108 mmol/L (98-107); Chol/HDL Ratio 6.3 (1-3.5); Cholesterol 307 mg/dl (140-200); Estimated Glomerular Filt Rate 93 ml/min (>60); GFR (African American) 113 ML/MIN (>60); Globulin 2.7 g/dL (1.3-3.2); Glucose 123 mg/dl (74-100); HDL Cholesterol 49 mg/dl (40-60); Potassium 4.5 mmoL/L (3.5-5.1); Sodium 137 mmol/L (136-145); Total Protein,Serum 6.9 g/dl (6.3-8.2); Triglycerides 168 mg/dl (30-150); VLDL Cholesterol 34 mg/dL (0-40)
[2023-12-30 17:58] LABS: Direct LDL Cholesterol 198.93 mg/dL (100-129)
[2023-12-30 17:59] LABS: Hemoglobin A1C 6.4 % (4.0-6.0)
[2023-12-30 18:06] LABS: 25-OH Vitamin D, Total 14.3 ng/mL (30-100)
[2023-12-30 18:39] LABS: Vitamin B12 227 pg/mL (239-931)
[2023-12-30 19:33] LABS: Ferritin 93.1 ng/ml (6.24-137)
== END 2023-12-30 23:59 | disposition home or self-care (01) ==
LOC: LAB.DROPOF 12-31 10:27
PROVIDERS: PCP Nurse Practitioner Family; Visit Provider Nurse Practitioner Family
DX: E11.9 Type 2 diabetes mellitus without complications (principal); D64.9 Anemia, unspecified; R79.89 Other specified abnormal findings of blood chemistry; E53.8 Deficiency of other specified B group vitamins; E55.9 Vitamin D deficiency, unspecified
CPT/HCPCS: 80053; 80061; 82306; 82607; 82728; 83036; 85025

== ENCOUNTER 2024-01-07 17:30 | Emergency (ER) | payer OTHER, SELFPAY ==
[2024-01-07 17:35] VITALS: BP 116/54; PULSE 73; RESP 19; TEMP 36.9; O2SAT 97; BMI 26.6
--- NOTE | 2024-01-07 17:51 | ED_ITS ---
Discharge Plan Disposition Patient Disposition: Home, Self-Care Condition: Good Prescriptions Prescriptions: New cephalexin 500 mg capsule 500 mg PO QID 5 Days Qty: 20 0RF No Action venlafaxine 75 mg capsule,extended release 24hr 75 mg PO DAILY atorvastatin 20 mg tablet 20 mg PO DAILY clindamycin HCl 300 mg capsule 300 mg PO DAILY cetirizine 10 mg tablet 10 mg PO DAILY ibuprofen 800 mg tablet 800 mg PO Q8H venlafaxine 150 mg capsule,extended release 24hr 150 mg PO DAILY omeprazole 40 mg capsule,delayed release(DR/EC) 40 mg PO DAILY ropinirole 0.25 mg tablet 0.25 mg PO DAILY cholecalciferol (vitamin D3) 125 mcg (5,000 unit) capsule 125 mcg PO DAILY Jardiance 25 mg tablet 25 mg PO DAILY Referrals Follow up/Referrals: Ana M Arceo APRN [Primary Care Provider] - See instructions Activity Restrictions/Add. Instructions Additional Instructions/Restrictions: Drink plenty of fluids. Take tylenol or ibuprofen for pain or fever. Take the medications as directed. Follow up with your regular doctor. GO TO THE ER FOR ANY WORSENING SYMPTOMS We will culture the urine. That will tell what bacteria is causing your infection and which antibiotics will treat it best. Sometimes the first antibiotic we prescribe turns out to not work against different bacteria. So, make sure you follow up within 3 days if you are not getting better. Clinical Impressions Clinical Impression: Dysuria Instructions Patient Instructions: Urine Culture, Cephalexin Discharge ED Provider: Juancho Dominguez [facility] General Stated complaint: back pain, dark urine Mode of Arrival: Ambulatory Source of Information: Patient Limitations: No Limitations Time Seen by Provider: 01/07/24 17:51 Description of Symptoms (Recalled from Triage Doc. by RN): PATIENT C/O LOWER BACK PAIN AND STATES HER URINE WAS BROWN THIS MORNING HEENT Symptoms (Recalled from RN notes): No Resp Symptoms (Recalled from RN notes): No Skin Symptoms (Recalled from RN notes): No MS Symptoms (Recalled from RN notes): No Functional Status (Recalled from RN notes): WNL Related Data Home Medications Medication Instructions Recorded Confirmed atorvastatin 20 mg tablet 20 mg PO DAILY 01/07/24 01/07/24 cetirizine 10 mg tablet 10 mg PO DAILY 01/07/24 01/07/24 cholecalciferol (vitamin D3) 125 125 mcg PO DAILY 01/07/24 01/07/24 mcg (5,000 unit) capsule clindamycin HCl 300 mg capsule 300 mg PO DAILY 01/07/24 01/07/24 empagliflozin 25 mg tablet 25 mg PO DAILY 01/07/24 01/07/24 (Jardiance) ibuprofen 800 mg tablet 800 mg PO Q8H 01/07/24 01/07/24 omeprazole 40 mg capsule,delayed 40 mg PO DAILY 01/07/24 01/07/24 release ropinirole 0.25 mg tablet 0.25 mg PO DAILY 01/07/24 01/07/24 venlafaxine 150 mg 150 mg PO DAILY 01/07/24 01/07/24 capsule,extended release 24 hr venlafaxine 75 mg capsule,extended 75 mg PO DAILY 01/07/24 01/07/24 release 24 hr Previous Rx's Medication Instructions Recorded cephalexin 500 mg capsule 500 mg PO QID 5 days #20 caps 01/07/24 Allergies Allergy/AdvReac Type Severity Reaction Status Date / Time codeine [CODEINE] Allergy Unknown Vomiting Verified 12/30/23 11:14 Sulfa (Sulfonamide Allergy Unknown Vomiting Verified 12/30/23 11:14 Antibiotics) [SULFA (SULFONAMIDE ANTIBIOTICS)] Worker's Comp Is this a Worker's Comp case?: No [facility] Disclaimer: The information contained in this section may have been updated after the patient was seen, as this information can be updated by other users. Medical History Panic disorder Attention deficit disorder (ADD) in adult LGSIL on Pap smear of cervix Diabetes mellitus Memory impairment Major depressive disorder Surgical History History of endometrial ablation History of umbilical hernia repair History of tubal ligation History of cholecystectomy History of History of tonsillectomy Family History Other Coronary artery disease Diabetes Heart attack Hyperlipidemia Hypertension Stroke Social History Smoking Status: Current every day smoker tobacco type: cigarettes packs per day: 1 second hand exposure: No alcohol intake: never substance use type: denies use current occupational status: employed Travel in the last 8 weeks: None household members: family and children housing: house number of children: 2 current occupation: [employer] current occupational exposures/hazards: No caffeine: Yes physical activity: none ROS Obtained: Yes All systems reviewed & no additional complaints except as documented Constitutional Constitutional: Reports system reviewed and no additional complaints, except as documented, Denies chills and Denies fever(s) Eyes Eyes: Denies eye discharge ENT Ears, Nose, Mouth, and Throat: Denies dysphagia, Denies sore throat and Denies throat swelling Cardiovascular Cardiovascular: Denies chest pain and Denies dyspnea Respiratory Respiratory: Denies chest congestion, Denies cough and Denies dyspnea Gastrointestinal Gastrointestingal: Denies abdominal pain, constipation, diarrhea, dysphagia, nausea or vomiting Genitourinary Female Genitourinary: Reports as per HPI, Reports dysuria, Reports urinary alex quency, Denies urinary incontinence, Reports urinary hesitancy and Reports urinary urgency Musculoskeletal Musculoskeletal: Denies arthralgias and Reports back pain Integumentary/Breasts Skin/Breast: Denies rash Neurologic Neurologic: Denies paresthesias Allergic/Immunologic Allergic/Immunologic: Denies throat swelling Physical Exam General General appearance: alert and in no apparent distress Head Head exam: atraumatic and normocephalic Eye Eye exam: Present normal appearance, PERRL and EOMI ENT ENT exam: Present normal exam, mucous membranes moist, TM's normal bilaterally a nd normal external ear exam Neck Neck exam: Present normal inspection, full ROM and trachea midline; Absent tenderness, meningismus or lymphadenopathy Chest Chest inspection: Present normal inspection and symmetric chest wall rise; Absent tenderness Respiratory Respiratory exam: Present normal lung sounds bilaterally; Absent respiratory distress, wheezes or stridor Cardiovascular Cardiovascular exam: Present regular rate, normal rhythm and normal heart sounds Abdominal Exam Abdominal exam: Present soft and normal bowel sounds; Absent distention, ten derness, guarding, rebound, rigidity, incision, psoas sign, obturator sign, heel tap sign, Horan's sign, Rovsing's sign or tenderness at McBurney's Point Extremities Exam Extremities exam: Present normal inspection, full ROM and normal capillary refill; Absent tenderness, edema, joint swelling, calf tenderness or cyanosis Back Exam Back exam: Present normal inspection and full ROM; Absent tenderness, CVA tenderness (R) or CVA tenderness (L) Neurological Exam Neurological exam: Present alert, oriented X3 and normal gait Psychiatric Psychiatric exam: Present normal affect and normal mood Skin Skin exam: Present warm, dry, intact and normal color Lymphatic Lymphatic Findings: no adenopathy Medical Decision Making Medical Records Medical records reviewed: No I reviewed the patient's medical records. Oj Inquiry Pt receiving controlled substance: No Vital Signs: 01/07/24 17:35 Temperature 98.4 F Temperature Source Oral Pulse Rate [Left Brachial] 73 Respiratory Rate 19 Blood Pressure [Left Arm] 116/54 L Blood Pressure Mean [Left Arm] 74 Blood Pressure Source [Left Arm] Automatic Cuff Blood Pressure Position [Left Arm] Sitting 02 Sat by Pulse Oximetry 97 Oxygen Delivery Method Room Air Lab Data Lab results reviewed: Yes I reviewed the patient's lab results. Orders (Tests/Meds): ORDERS Category Date Time Status Urine Culture Stat Micro 01/07/24 17:35 Received
[2024-01-07 17:55] LABS: Apearance,Urine Clear (Clear); Bilirubin,Urine Negative (Negative); Blood, Urine Negative (Negative); Color,Urine Yellow (Yellow); Glucose,Urine (UA) >=1000 (Negative); Ketones,Urine Negative (Negative); Protein,Urine Negative (Negative); Specific Gravity, Urine 1.015 (1.005-1.030); UTC Leukocyte Esterase,Urine Negative (Negative); UTC Nitrate,Urine Negative (Negative); Urobilinogen,Urine 0.2 EU/dl (0.2)
[2024-01-07 18:14] VITALS: BP 116/54; PULSE 73; RESP 19; TEMP 36.9; O2SAT 97
--- NOTE | 2024-01-12 18:37 | PC.NURSE ---
REVIEWED URINE CULTURE RESULTS WITH Manuelito KAPLAN APRN. ANTIBIOTIC CHANGED AT THIS TIME TO DOXYCYCLINE. PATIENT NOTIFIED OF CHANGE AND ADVISED TO STOP CURRENT ANTIBIOTIC AND START NEW. PATIENT VERIFIED UNDERSTANDING
== END 2024-01-07 18:24 | disposition home or self-care (01) ==
PROVIDERS: Emergency Provider Nurse Practitioner Family; PCP Nurse Practitioner Family
DX: N39.0 Urinary tract infection, site not specified (principal); B95.7 Other staphylococcus as the cause of diseases classified elsewhere; R30.0 Dysuria; M54.59 Other low back pain
CPT/HCPCS: 81003; 87086; 87088; 87186; 99212; 99214; G0463

== ENCOUNTER 2024-02-04 15:30 | Outpatient (CLI) | payer OTHER, SELFPAY | END 2024-02-04 23:59 | disposition home or self-care (01) | LOC: LAB.DROPOF 02-05 09:58 | PROVIDERS: PCP Nurse Practitioner Family; Visit Provider Nurse Practitioner Family | DX: R30.0 Dysuria (principal) | CPT/HCPCS: 87086 ==

== ENCOUNTER 2024-03-01 13:23 | Outpatient (CLI) | payer OTHER, SELFPAY ==
--- NOTE | 2024-03-01 13:27 | XR_ITS ---
FINAL REPORT CLINICAL HISTORY: Foot Pain FINDINGS: LEFT FOOT Three views of the left foot demonstrate no acute fracture or dislocation. The visualized joint spaces are normally aligned. The soft tissues are unremarkable. IMPRESSION: No acute bony abnormality. Reviewed, Interpreted and Dictated by Foreign Jimenez III, MD Transcribed by Donna Ace Authenticated and [facility]
--- NOTE | 2024-03-01 13:27 | XR_ITS ---
FINAL REPORT CLINICAL HISTORY: Foot Pain FINDINGS: RIGHT FOOT 3 views of the right foot were obtained. There is no acute fracture or dislocation. Visualized joint spaces are normally aligned. Soft tissues are unremarkable. IMPRESSION: No acute bony abnormality. Reviewed, Interpreted and Dictated by Foreign Jimenez III, MD Transcribed by Donna Ace Authenticated and [facility]
== END 2024-03-01 23:59 | disposition home or self-care (01) ==
LOC: RAD 13:24
PROVIDERS: PCP Nurse Practitioner Family; Visit Provider Podiatrist
DX: M79.671 Pain in right foot (principal); M79.672 Pain in left foot
CPT/HCPCS: 73630

== ENCOUNTER 2024-04-15 11:11 | Emergency (ER) | payer OTHER, SELFPAY ==
[2024-04-15 11:30] VITALS: BP 118/76; PULSE 99; RESP 20; TEMP 36.7; O2SAT 95; BMI 28.0
--- NOTE | 2024-04-15 11:30 | ED_ITS ---
Discharge Plan Disposition Patient Disposition: Home, Self-Care Condition: Good Prescriptions Prescriptions: New prednisone 10 mg tablet 10 mg PO BID 3 Days Qty: 6 0RF amoxicillin 875 mg tablet 875 mg PO Q12H Qty: 20 0RF benzonatate 100 mg capsule 100 mg PO TIDP PRN (Reason: Cough) Qty: 30 0RF No Action venlafaxine 150 mg capsule,extended release 24hr 150 mg PO DAILY Qty: 90 0RF venlafaxine 75 mg capsule,extended release 24hr 75 mg PO DAILY Qty: 90 0RF cyanocobalamin (vitamin B-12) 1,000 mcg/mL solution 1,000 mcg IM QMONTH Qty: 1 3RF Rx Instructions: with 3 ml syringe [id number] for each injection cholecalciferol (vitamin D3) 125 mcg (5,000 unit) capsule See Rx Instructions .ROUTE .COMPLEX Qty: 30 1RF Dose Instruction: TAKE 1 CAPSULE BY MOUTH ONCE DAILY Rx Instructions: TAKE 1 CAPSULE BY MOUTH ONCE DAILY atorvastatin 20 mg tablet See Rx Instructions .ROUTE .COMPLEX Qty: 30 1RF Dose Instruction: TAKE 1 TABLET BY MOUTH ONCE DAILY Rx Instructions: TAKE 1 TABLET BY MOUTH ONCE DAILY cetirizine 10 mg tablet See Rx Instructions .ROUTE .COMPLEX Qty: 30 1RF Dose Instruction: TAKE 1 TABLET BY MOUTH ONCE DAILY Rx Instructions: TAKE 1 TABLET BY MOUTH ONCE DAILY ropinirole 0.25 mg tablet See Rx Instructions .ROUTE .COMPLEX Qty: 30 0RF Dose Instruction: TAKE 1 TABLET BY MOUTH ONCE DAILY Rx Instructions: TAKE 1 TABLET BY MOUTH ONCE DAILY Jornay PM 80 mg capsule,del rel,ext rel sprink 80 mg PO HS Qty: 30 0RF ibuprofen 800 mg tablet See Rx Instructions .ROUTE .COMPLEX Qty: 90 0RF Dose Instruction: TAKE 1 TABLET BY MOUTH EVERY 8 HOURS NEEDED FOR PAIN Rx Instructions: TAKE 1 TABLET BY MOUTH EVERY 8 HOURS NEEDED FOR PAIN omeprazole 40 mg capsule,delayed release(DR/EC) 40 mg PO DAILY Jardiance 25 mg tablet 25 mg PO DAILY Referrals Follow up/Referrals: Ana M Arceo APRN [Primary Care Provider] - See instructions Activity Restrictions/Add. Instructions Additional Instructions/Restrictions: Drink plenty of fluids. Take tylenol or ibuprofen for pain or fever. Take the medications as directed. Follow up with your regular doctor. GO TO THE ER FOR ANY WORSENING SYMPTOMS Throw your tooth brush away and get a new one. Clinical Impressions Clinical Impression: Strep pharyngitis Stand Alone Forms Stand Alone Forms: Work/School Release Instructions Patient Instructions: Strep Throat, DI for Strep Throat Print Language Print Language: Greek Discharge ED Provider: Juancho Dominguez [facility] [place] HPI General Stated complaint: sore throat, headache, body aches, nausea Time Seen by Provider: 04/15/24 11:30 Related Data Home Medications ?Medication ?Instructions ?Recorded ?Confirmed empagliflozin 25 mg tablet 25 mg PO DAILY 01/07/24 04/04/24 (Jardiance) omeprazole 40 mg capsule,delayed 40 mg PO DAILY 01/07/24 04/04/24 release Previous Rx's ?Medication ?Instructions ?Recorded venlafaxine 150 mg 150 mg PO DAILY #90 caps 01/22/24 capsule,extended release 24 hr venlafaxine 75 mg capsule,extended 75 mg PO DAILY #90 caps 01/22/24 release 24 hr cyanocobalamin (vitamin B-12) 1,000 mcg IM QMONTH #1 mL 03/05/24 1,000 mcg/mL injection solution atorvastatin 20 mg tablet See Rx Instructions .Route 04/01/24 .COMPLEX #30 tabs cetirizine 10 mg tablet See Rx Instructions .Route 04/01/24 .COMPLEX #30 tabs cholecalciferol (vitamin D3) 125 See Rx Instructions .Route 04/01/24 mcg (5,000 unit) capsule .COMPLEX #30 caps ropinirole 0.25 mg tablet See Rx Instructions .Route 04/05/24 .COMPLEX #30 tabs methylphenidate HCl 80 mg 80 mg PO HS #30 ea 04/12/24 capsule,delayed release,ext release sprinkle (Jornay PM) ibuprofen 800 mg tablet See Rx Instructions .Route 04/13/24 .COMPLEX #90 tabs amoxicillin 875 mg tablet 875 mg PO Q12H #20 tabs 04/15/24 benzonatate 100 mg capsule 100 mg PO TIDP PRN Cough #30 caps 04/15/24 prednisone 10 mg tablet 10 mg PO BID 3 days #6 tabs 04/15/24 Allergies Allergy/AdvReac Type Severity Reaction Status Date / Time codeine [CODEINE] Allergy Unknown Vomiting Verified 03/01/24 14:13 Sulfa (Sulfonamide Allergy Unknown Vomiting Verified 03/01/24 14:13 Antibiotics) [SULFA (SULFONAMIDE ANTIBIOTICS)] [facility] Disclaimer: The information contained in this section may have been updated after the patient was seen, as this information can be updated by other users. Medical History Panic disorder Attention deficit disorder (ADD) in adult LGSIL on Pap smear of cervix Diabetes mellitus Memory impairment Major depressive disorder Surgical History History of endometrial ablation History of umbilical hernia repair History of tubal ligation History of cholecystectomy History of History of tonsillectomy Family History Other Coronary artery disease Diabetes Heart attack Hyperlipidemia Hypertension Stroke Social History Smoking Status: Current every day smoker tobacco type: cigarettes packs per day: 1 second hand exposure: No alcohol intake: never substance use type: denies use current occupational status: employed Travel in the last 8 weeks: None household members: family and children housing: house number of children: 2 current occupation: [employer] current occupational exposures/hazards: No caffeine: Yes physical activity: none ROS Obtained: Yes All systems reviewed & no additional complaints except as documented Constitutional Constitutional: Reports chills and Reports fever(s) Eyes Eyes: Denies eye discharge ENT Ears, Nose, Mouth, and Throat: Reports as per HPI Cardiovascular Cardiovascular: Denies chest pain Respiratory Respiratory: Denies chest congestion and Reports cough Gastrointestinal Gastrointestingal: Reports nausea; Denies abdominal pain, constipation, cramping, diarrhea or vomiting Musculoskeletal Musculoskeletal: Denies arthralgias Integumentary/Breasts Skin/Breast: Denies rash Neurologic Neurologic: Denies paresthesias Physical Exam General General appearance: alert and in no apparent distress Head Head exam: atraumatic, normocephalic and normal inspection Eye Eye exam: Present normal appearance, PERRL and EOMI ENT ENT exam: Present mucous membranes moist and normal external ear exam Expanded ENT Exam TM/Canal exam: Bilateral TM: erythema and bulging Nose exam: Absent sinus tenderness Mouth exam: Present normal external inspection; Absent drooling Teeth exam: Present normal inspection Throat exam: Present tonsillar erythema, tonsillomegaly and tonsillar exudate Neck Neck exam: Present normal inspection, full ROM and trachea midline; Absent tenderness, meningismus or lymphadenopathy Chest Chest inspection: Present normal inspection and symmetric chest wall rise; Absent tenderness Respiratory Respiratory exam: Present normal lung sounds bilaterally; Absent respiratory distress, wheezes, stridor or accessory muscle use Cardiovascular Cardiovascular exam: Present regular rate and normal rhythm; Absent systolic murmur or diastolic murmur Abdominal Exam Abdominal exam: Present soft and normal bowel sounds; Absent distention, tenderness, guarding, rebound or rigidity Extremities Exam Extremities exam: Present normal inspection and normal capillary refill; Absent calf tenderness Back Exam Back exam: Present normal inspection and full ROM; Absent tenderness, CVA tenderness (R) or CVA tenderness (L) Neurological Exam Neurological exam: Present alert, oriented X3 and CN II-XII intact Psychiatric Psychiatric exam: Present normal affect and normal mood Skin Skin exam: Present warm, dry, intact and normal color Medical Decision Making Medical Records Medical records reviewed: No I reviewed the patient's medical records. Screening: Per USPSTF and CDC recommendations, given the prevalence of disease in our region, it is our hospital?s policy to screen for HIV and viral Hepatitis for all patients aged 18 and over and those with ongoing risk factors. Oj Inquiry Pt receiving controlled substance: No Lab Data Lab results reviewed: Yes I reviewed the patient's lab results.
[2024-04-15 11:48] LABS: UTC Strep Screen (Rapid) Positive (Negative)
[2024-04-15 12:03] VITALS: BP 118/76; PULSE 99; RESP 20; TEMP 36.7; O2SAT 95
== END 2024-04-15 12:04 | disposition home or self-care (01) ==
PROVIDERS: Emergency Provider Nurse Practitioner Family; PCP Nurse Practitioner Family
DX: J02.0 Streptococcal pharyngitis (principal)
CPT/HCPCS: 87880; 99213; G0381

== ENCOUNTER 2024-04-20 15:23 | Outpatient (CLI) | payer OTHER, SELFPAY ==
[2024-04-20 16:13] LABS: Monoscreen (Rapid) Negative (Negative)
[2024-04-20 16:36] LABS: Adenovirus,PCR Not Detected (NotDetected); Bordetella Pertussis Not Detected (NotDetected); Chlamydophila Pneumoniae, PCR Not Detected (NotDetected); Coronavirus 19, PCR Not Detected (NotDetected); Coronavirus 229E Not Detected (NotDetected); Coronavirus NL63 Not Detected (NotDetected); Coronavirus OC43 Not Detected (NotDetected); Coronovirus HKU1,PCR Not Detected (NotDetected); Human Metapneumovirus Not Detected (NotDetected); Influenza A, PCR Not Detected (NotDetected); Influenza AH1, 2009 Not Detected (NotDetected); Influenza AH1, PCR Not Detected (NotDetected); Influenza AH3,PCR Not Detected (NotDetected); Influenza B, PCR Not Detected (NotDetected); Mycoplasma Pneumoniae, PCR Not Detected (NotDetected); Parainfluenza 1, PCR Not Detected (NotDetected); Parainfluenza 2, PCR Not Detected (NotDetected); Parainfluenza 3, PCR Not Detected (NotDetected); Parainfluenza 4, PCR Not Detected (NotDetected); Respiratory Syncytial Virus Not Detected (NotDetected); Rhinovirus/Enterovirus Not Detected (NotDetected)
== END 2024-04-20 23:59 | disposition home or self-care (01) ==
LOC: LAB 15:24
PROVIDERS: PCP Nurse Practitioner Family; Visit Provider Nurse Practitioner Family
DX: J02.9 Acute pharyngitis, unspecified (principal); R05.9 Cough, unspecified; S10.12XA Blister (nonthermal) of throat, initial encounter; R05.1 Acute cough; R50.9 Fever, unspecified; Z72.0 Tobacco use
CPT/HCPCS: 36415; 86318; 87070; 87265; 87486; 87581; 87632; 87635

== ENCOUNTER 2024-05-19 17:04 | Emergency (ER) | payer OTHER, SELFPAY ==
--- NOTE | 2024-05-19 17:03 | ECG_ITS ---
APPROVED REPORT Exam: Resting ECG HR:100 bpm ECG Measurements Heart Rate 100 AXES NJ 144 P 55 QRSd 99 QRS 38 QT 375 T 50 QTc 432 Conclusion SINUS TACHYCARDIA ABNORMAL RHYTHM ECG Electronically signed by : ARCADIO HAILE, 05/20/2024 00:18:51
[2024-05-19 17:04] VITALS: BP 143/82; PULSE 106; RESP 13; TEMP 36.4; O2SAT 96; BMI 29.1
--- NOTE | 2024-05-19 17:06 | ED_ITS ---
Discharge Plan Disposition Patient Disposition: Home, Self-Care Condition: Good Prescriptions Prescriptions: No Action albuterol sulfate 90 mcg/actuation HFA aerosol inhaler 2 puff inhalation Q4-6H PRN (Reason: shortness of breath or wheezing) Qty: 6.7 0RF cefdinir 300 mg capsule 300 mg PO BID 10 Days Qty: 20 0RF cyanocobalamin (vitamin B-12) 1,000 mcg/mL solution 1,000 mcg IM QMONTH Qty: 1 3RF Rx Instructions: with 3 ml syringe [id number] for each injection cholecalciferol (vitamin D3) 125 mcg (5,000 unit) capsule See Rx Instructions .ROUTE .COMPLEX Qty: 30 1RF Dose Instruction: TAKE 1 CAPSULE BY MOUTH ONCE DAILY Rx Instructions: TAKE 1 CAPSULE BY MOUTH ONCE DAILY atorvastatin 20 mg tablet See Rx Instructions .ROUTE .COMPLEX Qty: 30 1RF Dose Instruction: TAKE 1 TABLET BY MOUTH ONCE DAILY Rx Instructions: TAKE 1 TABLET BY MOUTH ONCE DAILY cetirizine 10 mg tablet See Rx Instructions .ROUTE .COMPLEX Qty: 30 1RF Dose Instruction: TAKE 1 TABLET BY MOUTH ONCE DAILY Rx Instructions: TAKE 1 TABLET BY MOUTH ONCE DAILY ibuprofen 800 mg tablet See Rx Instructions .ROUTE .COMPLEX Qty: 90 0RF Dose Instruction: TAKE 1 TABLET BY MOUTH EVERY 8 HOURS NEEDED FOR PAIN Rx Instructions: TAKE 1 TABLET BY MOUTH EVERY 8 HOURS NEEDED FOR PAIN ropinirole 0.25 mg tablet See Rx Instructions .ROUTE .COMPLEX Qty: 30 0RF Dose Instruction: TAKE 1 TABLET BY MOUTH ONCE DAILY Rx Instructions: TAKE 1 TABLET BY MOUTH ONCE DAILY omeprazole 40 mg capsule,delayed release(DR/EC) See Rx Instructions .ROUTE .COMPLEX Qty: 30 4RF Dose Instruction: TAKE 1 CAPSULE BY MOUTH ONCE DAILY FOR STOMACH Rx Instructions: TAKE 1 CAPSULE BY MOUTH ONCE DAILY FOR STOMACH Jardiance 25 mg tablet See Rx Instructions .ROUTE .COMPLEX Qty: 30 4RF Dose Instruction: TAKE 1 TABLET BY MOUTH ONCE DAILY Rx Instructions: TAKE 1 TABLET BY MOUTH ONCE DAILY venlafaxine 75 mg capsule,extended release 24hr 75 mg PO DAILY Qty: 90 0RF venlafaxine 150 mg capsule,extended release 24hr 150 mg PO DAILY Qty: 90 0RF promethazine-DM 6.25-15 mg/5 mL syrup 5 ml PO Q4-6H PRN (Reason: cough) Qty: 118 0RF Jornay PM 80 mg capsule,del rel,ext rel sprink 80 mg PO HS Qty: 30 0RF amoxicillin 875 mg tablet 875 mg PO Q12H Qty: 20 0RF Referrals Follow up/Referrals: Tee Mora MD [Staff Physician] - See instructions (Chest pain) Activity Restrictions/Add. Instructions Additional Instructions/Restrictions: I have referred you to cardiology for further workup as we discussed. Follow-up with your PCP next week for recheck. Return to the ER for any worsening signs or symptoms as needed. Clinical Impressions Clinical Impression: Chest pain Qualifiers: Chest pain type: unspecified Qualified Code(s): R07.9 - Chest pain, unspecified Instructions Patient Instructions: DI for Chest Pain Print Language Print Language: French Discharge ED Provider: Kamron Spivey General Adult HPI <BILL Tolbert - Last Filed: 05/19/24 20:05> General Chief complaint: Chest Pain Stated complaint: chest pain Time Seen by Provider: 05/19/24 17:04 History of Present Illness HPI narrative: Patient presents for evaluation of acute chest pain. Patient had acute onset of left-sided chest pain approximately 30 to 45 minutes prior to arrival. She states it lasted approximately 30 to 45 minutes. It did not go away until she got an aspirin underneath her tongue by EMS. She does not have a known cardiac history but does have a history of peripheral neuropathy in her feet history of panic disorder hyperlipidemia, she is on a GLP-1 inhibitor, ADHD GERD restless leg syndrome. She denies any fever chills hemoptysis hematochezia melena she does endorse nausea but no vomiting or diarrhea diaphoresis. Related Data Previous Rx's ?Medication ?Instructions ?Recorded cyanocobalamin (vitamin B-12) 1,000 mcg IM QMONTH #1 mL 03/05/24 1,000 mcg/mL injection solution atorvastatin 20 mg tablet See Rx Instructions .Route 04/01/24 .COMPLEX #30 tabs cetirizine 10 mg tablet See Rx Instructions .Route 04/01/24 .COMPLEX #30 tabs cholecalciferol (vitamin D3) 125 See Rx Instructions .Route 04/01/24 mcg (5,000 unit) capsule .COMPLEX #30 caps ibuprofen 800 mg tablet See Rx Instructions .Route 04/13/24 .COMPLEX #90 tabs amoxicillin 875 mg tablet 875 mg PO Q12H #20 tabs 04/15/24 albuterol sulfate 90 mcg/actuation 2 puff inhalation Q4-6H PRN 04/20/24 aerosol inhaler shortness of breath or wheezing #6.7 grams cefdinir 300 mg capsule 300 mg PO BID 10 days #20 caps 04/20/24 empagliflozin 25 mg tablet See Rx Instructions .Route 05/10/24 (Jardiance) .COMPLEX #30 tabs omeprazole 40 mg capsule,delayed See Rx Instructions .Route 05/10/24 release .COMPLEX #30 caps ropinirole 0.25 mg tablet See Rx Instructions .Route 05/10/24 .COMPLEX #30 tabs venlafaxine 150 mg 150 mg PO DAILY #90 caps 05/10/24 capsule,extended release 24 hr venlafaxine 75 mg capsule,extended 75 mg PO DAILY #90 caps 05/10/24 release 24 hr promethazine-DM 6.25 mg-15 mg/5 mL 5 ml PO Q4-6H PRN cough #118 mL 05/11/24 oral syrup methylphenidate HCl 80 mg 80 mg PO HS #30 ea 05/12/24 capsule,delayed release,ext release sprinkle (Lucía PM) Allergies Allergy/AdvReac Type Severity Reaction Status Date / Time codeine (CODEINE) Allergy Unknown Vomiting Verified 04/20/24 14:39 Sulfa (Sulfonamide Allergy Unknown Vomiting Verified 04/20/24 14:39 Antibiotics) (SULFA (SULFONAMIDE ANTIBIOTICS)) [facility] <BILL Tolbert - Last Filed: 05/19/24 20:05> [facility] Disclaimer: The information contained in this section may have been updated after the patient was seen, as this information can be updated by other users. Medical History Attention deficit disorder (ADD) in adult Diabetes mellitus LGSIL on Pap smear of cervix Major depressive disorder Memory impairment Panic disorder Surgical History History of History of cholecystectomy History of endometrial ablation History of tonsillectomy History of tubal ligation History of umbilical hernia repair Family History Other Coronary artery disease Diabetes Heart attack Hyperlipidemia Hypertension Stroke Social History Smoking Status: Current every day smoker tobacco type: cigarettes packs per day: 1 second hand exposure: No alcohol intake: never substance use type: denies use current occupational status: employed household members: family and children housing: house number of children: 2 current occupation: [id number] current occupational exposures/hazards: No caffeine: Yes physical activity: none Other Medical History Have you received the Flu Vaccine for this season: No Have you received the Pneumonia Vaccine: No <BILL Tolbert - Last Filed: 05/19/24 20:05> ROS Obtained: Yes Systems reviewed as appropriate & no additional complaints except as documented Physical Exam <BILL Tolbert - Last Filed: 05/19/24 20:05> General General appearance: alert and in no apparent distress Respiratory Respiratory exam: Present normal lung sounds bilaterally Cardiovascular Cardiovascular exam: Present tachycardia Neurological Exam Neurological exam: Present alert and oriented X3 Medical Decision Making <BILL Tolbert - Last Filed: 05/19/24 20:05> Medical Records Medical records reviewed: Yes I reviewed the patient's medical records. Screening: Per USPSTF and CDC recommendations, given the prevalence of disease in our region, it is our hospital?s policy to screen for HIV and viral Hepatitis for all patients aged 18 and over and those with ongoing risk factors. Oj Inquiry Pt receiving controlled substance: No Vital Signs: 05/19/24 17:04 05/19/24 18:00 05/19/24 18:30 Temperature 97.5 F L Temperature Source Oral Pulse Rate 100 H 109 H Pulse Rate [Left Radial] 106 H Respiratory Rate 13 13 23 Blood Pressure 130/84 135/82 Blood Pressure [Right Arm] 143/82 H Blood Pressure Mean [Right Arm] 102 02 Sat by Pulse Oximetry 96 96 95 Oxygen Delivery Method Room Air Lab Data Lab results reviewed: Yes I reviewed the patient's lab results. Lab Results 05/19/24 17:03: WBC 12.2 H, RBC 5.09, Hgb 15.8, Hct 47.6 H, MCV 93.5, MCH 31.0, MCHC 33.1, RDW 14.0, Plt Count 226, MPV 8.9, Neut % (Auto) 83.9 H, Lymph % (Auto) 9.5 L, [place] % (Auto) 4.5, Eos % (Auto) 1.0, Baso % (Auto) 1.1, Neut # (Auto) 10.2 H, Lymph # (Auto) 1.2, [place] # (Auto) 0.6, Eos # (Auto) 0.1, Baso # (Auto) 0.1, D-Dimer 0.64 H, Sodium 136, Potassium 4.0, Chloride 107, Carbon Dioxide 24, Anion Gap 9.0, BUN 19 H, Creatinine 0.70, Estimated Creat Clear 134, Estimated GFR 93, Est GFR ( Amer) 112, Glucose 155 H, Calcium 8.2 L, Total Bilirubin 0.5, AST 72 H, ALT 37, Alkaline Phosphatase 104, Troponin I < 0.01, Total Protein 6.5, Albumin 3.8, Globulin 2.7, Albumin/Globulin Ratio 1.4, HIV 1&2 Antibody Rapid Nonreactive 05/19/24 17:10: SARS-CoV-2 (PCR) Not detected, Influenza A Untype (PCR) Not detected, Influenza Type B (PCR) Not detected 05/19/24 19:21: Troponin I < 0.01 05/19/24 17:03 05/19/24 17:03 Orders (Tests/Meds): ED MEDICATIONS Discontinued Medications Generic Name Dose Route Start Last Admin Trade Name Freq PRN Reason Stop Dose Admin Acetaminophen 1,000 mg 05/19/24 17:08 05/19/24 17:18 Acetaminophen 500mg Tab PO 05/19/24 17:09 1,000 mg ONCE ONE Administration Belladonna Alkaloids 60 ml 05/19/24 17:08 05/19/24 17:18 Belladonna Alkaloids 60 Ml Ml PO 05/19/24 17:09 60 ml ONCE ONE Administration Ibuprofen 800 mg 05/19/24 17:08 05/19/24 17:18 Ibuprofen 400 Mg Tablet PO 05/19/24 17:09 800 mg ONCE ONE Administration Ondansetron HCl 4 mg 05/19/24 17:54 05/19/24 17:56 Ondansetron 4mg Odt SL 05/19/24 17:55 4 mg ONCE ONE Administration Prednisone 60 mg 05/19/24 17:57 05/19/24 18:02 Prednisone 20mg Tab PO 05/19/24 17:58 Not Given ONCE ONE ORDERS Category Date Time Status Chest XR 2 view (NOT portable) [XR chest 2V] Stat Exams 05/19/24 17:08 Completed CBC w/Auto Diff [Complete Blood Count Auto Diff] Stat Lab 05/19/24 17:03 Completed CMP [Comprehensive Metabolic Panel] Stat Lab 05/19/24 17:03 Completed D-Dimer Stat Lab 05/19/24 17:03 Completed HIV (1&2) Antibody Rapid Stat Lab 05/19/24 17:03 Completed Hep C Ab with Reflex to RNA Stat Lab 05/19/24 17:03 Received Rapid PCR Covid and Flu A/B Stat Lab 05/19/24 17:10 Completed Trop I [Troponin I] Stat Lab 05/19/24 17:03 Completed Troponin I Q3H Lab 05/19/24 19:21 Completed Troponin I Q3H Lab 05/19/24 23:15 Ordered HEART Score History (anamnesis): Slightly suspicious ECG: Non-specific disturbance Age: <45 years Risk factors: 1-2 risk factors Troponin: </= normal limit HEART Score: 2 Medical Decision Narrative: In summary patient is a 39-year-old female who presents to the emergency department for evaluation of sided chest pain. Patient is initially normotensive with a blood pressure 143/82 breathing 13 times a minute with an O2 sat of 96% on room air but initially tachycardic on arrival at 106 upon arrival, but afebrile and 97.5. Physical exam is unremarkable and nonfocal including no reproducible chest pain on palpation, normal breath sounds normal heart sounds sinus tachycardia on the monitor no epigastric abdominal pain with normal bowel sounds. Differential diagnosis includes esophagitis versus ACS versus gastroenteritis versus respiratory infection etc. Initial workup will be conducted with hematologic labs plain film chest x-ray twelve-lead EKG respiratory swabs. Initial interventions include crystalloid bolus Toradol Tylenol GI cocktail. Initial workup reviewed by me shows that her CBC has a white count of 12.2 with an absolute neutrophil count of 10.2, a D-dimer of 0.64 but she is excluded by years criteria for PE, a slightly low calcium of 8.2 and undetectable first troponin negative COVID and flu swabs and my informal interpretation of her plain film chest x-ray shows no acute processes prior to radiology read. Given this the patient was placed in observation status at 1730. Medical necessity for observational status is serial troponins. The patient was provided serial reevaluations continuous cardiac monitoring and pulse oximetry while awaiting results. Patient's second troponin remains undetectable. I have not been able to definitively answer what caused her discomfort but I have essentially ruled out any serious or life-threatening condition. Total time in observation was 2 and half hours. Given this patient is appropriate for discharge we will for her to cardiology for further restratification and follow-up with strict return precautions.. <Kamron Spivey MD - Last Filed: 05/19/24 20:11> Oj Conde Pt receiving controlled substance: No Vital Signs: 05/19/24 17:04 05/19/24 18:00 05/19/24 18:30 Temperature 97.5 F L Temperature Source Oral Pulse Rate 100 H 109 H Pulse Rate [Left Radial] 106 H Respiratory Rate 13 13 23 Blood Pressure 130/84 135/82 Blood Pressure [Right Arm] 143/82 H Blood Pressure Mean [Right Arm] 102 02 Sat by Pulse Oximetry 96 96 95 Oxygen Delivery Method Room Air Lab Data Lab Results 05/19/24 17:03: WBC 12.2 H, RBC 5.09, Hgb 15.8, Hct 47.6 H, MCV 93.5, MCH 31.0, MCHC 33.1, RDW 14.0, Plt Count 226, MPV 8.9, Neut % (Auto) 83.9 H, Lymph % (Auto) 9.5 L, [place] % (Auto) 4.5, Eos % (Auto) 1.0, Baso % (Auto) 1.1, Neut # (Auto) 10.2 H, Lymph # (Auto) 1.2, [place] # (Auto) 0.6, Eos # (Auto) 0.1, Baso # (Auto) 0.1, D-Dimer 0.64 H, Sodium 136, Potassium 4.0, Chloride 107, Carbon Dioxide 24, Anion Gap 9.0, BUN 19 H, Creatinine 0.70, Estimated Creat Clear 134, Estimated GFR 93, Est GFR ( Amer) 112, Glucose 155 H, Calcium 8.2 L, Total Bilirubin 0.5, AST 72 H, ALT 37, Alkaline Phosphatase 104, Troponin I < 0.01, Total Protein 6.5, Albumin 3.8, Globulin 2.7, Albumin/Globulin Ratio 1.4, HIV 1&2 Antibody Rapid Nonreactive 05/19/24 17:10: SARS-CoV-2 (PCR) Not detected, Influenza A Untype (PCR) Not detected, Influenza Type B (PCR) Not detected 05/19/24 19:21: Troponin I < 0.01 Orders (Tests/Meds): ED MEDICATIONS Discontinued Medications Generic Name Dose Route Start Last Admin Trade Name Freq PRN Reason Stop Dose Admin Acetaminophen 1,000 mg 05/19/24 17:08 05/19/24 17:18 Acetaminophen 500mg Tab PO 05/19/24 17:09 1,000 mg ONCE ONE Administration Belladonna Alkaloids 60 ml 05/19/24 17:08 05/19/24 17:18 Belladonna Alkaloids 60 Ml Ml PO 05/19/24 17:09 60 ml ONCE ONE Administration Ibuprofen 800 mg 05/19/24 17:08 05/19/24 17:18 Ibuprofen 400 Mg Tablet PO 05/19/24 17:09 800 mg ONCE ONE Administration Ondansetron HCl 4 mg 05/19/24 17:54 05/19/24 17:56 Ondansetron 4mg Odt SL 05/19/24 17:55 4 mg ONCE ONE Administration Prednisone 60 mg 05/19/24 17:57 05/19/24 18:02 Prednisone 20mg Tab PO 05/19/24 17:58 Not Given ONCE ONE ORDERS Category Date Time Status Chest XR 2 view (NOT portable) [XR chest 2V] Stat Exams 05/19/24 17:08 Completed CBC w/Auto Diff [Complete Blood Count Auto Diff] Stat Lab 05/19/24 17:03 Completed CMP [Comprehensive Metabolic Panel] Stat Lab 05/19/24 17:03 Completed D-Dimer Stat Lab 05/19/24 17:03 Completed HIV (1&2) Antibody Rapid Stat Lab 05/19/24 17:03 Completed Hep C Ab with Reflex to RNA Stat Lab 05/19/24 17:03 Received Rapid PCR Covid and Flu A/B Stat Lab 05/19/24 17:10 Completed Trop I [Troponin I] Stat Lab 05/19/24 17:03 Completed Troponin I Q3H Lab 05/19/24 19:21 Completed Troponin I Q3H Lab 05/19/24 23:15 Ordered ECG Data Tracing #1: Independently interpreted by me rate is 100, rhythm is regular, axis is normal, no ST elevation in anatomical contiguous leads, QTc 432 HEART Score HEART Score: 2 Medical Decision Narrative: In summary patient is a 39-year-old female who presents to the emergency department for evaluation of sided chest pain. Patient is initially normotensive with a blood pressure 143/82 breathing 13 times a minute with an O2 sat of 96% on room air but initially tachycardic on arrival at 106 upon arrival, but afebrile and 97.5. Physical exam is unremarkable and nonfocal including no reproducible chest pain on palpation, normal breath sounds normal heart sounds sinus tachycardia on the monitor no epigastric abdominal pain with normal bowel sounds. Differential diagnosis includes esophagitis versus ACS versus gastroenteritis versus respiratory infection etc. Initial workup will be conducted with hematologic labs plain film chest x-ray twelve-lead EKG respiratory swabs. Initial interventions include crystalloid bolus Toradol Tylenol GI cocktail. Initial workup reviewed by me shows that her CBC has a white count of 12.2 with an absolute neutrophil count of 10.2, a D-dimer of 0.64 but she is excluded by years criteria for PE, a slightly low calcium of 8.2 and undetectable first troponin negative COVID and flu swabs and my informal interpretation of her plain film chest x-ray shows no acute processes prior to radiology read. Given this the patient was placed in observation status at 1730. Medical necessity for observational status is serial troponins. The patient was provided serial reevaluations continuous cardiac monitoring and pulse oximetry while awaiting results. Patient's second troponin remains undetectable. I have not been able to definitively answer what caused her discomfort but I have essentially ruled out any serious or life-threatening condition. Total time in observation was 2 and half hours. Given this patient is appropriate for discharge we will for her to cardiology for further restratification and follow-up with strict return precautions.. I was consulted by the DARION, and we discussed the complexity of the problems being addressed. I approved the treatment and management plan for this patient's care in the emergency department, thus performing a substantive portion of the medical decision making. Chest pain workup with pulmonary embolism excluded per years criteria, no critical electrolyte abnormalities, serial troponins flat and undetectably low, no viral analytes on swab. Resolution of symptoms on repeat evaluation per DARION. Appropriate for outpatient management at this time Kamron Spivey MD Critical Care <BILL Tolbert - Last Filed: 05/19/24 20:05> Critical Care Time Critical Care Time: No
--- NOTE | 2024-05-19 17:08 | XR_ITS ---
PROCEDURE INFORMATION: Exam: XR Chest Exam date and time: 05/19/2024 5:19 PM Age: 39 years old Clinical indication: Pain; Chest pressure; Additional info: Acute chest pain TECHNIQUE: Imaging protocol: Radiologic exam of the chest. Views: 2 views. COMPARISON: No relevant prior studies available. FINDINGS: Lungs: Apparent minimal patchy opacity RIGHT lung base. Calcified granuloma within RIGHT lower lobe. Pleural spaces: No significant pleural effusion. No pneumothorax. Heart/Mediastinum: No cardiomegaly. Bones/joints: No displaced fracture. Soft tissues: Unremarkable. IMPRESSION: RIGHT basilar atelectasis versus early pneumonia. Radiographic follow-up is recommended.
[2024-05-19 17:18] LABS: Basophils # 0.1 K/mm3 (0-0.2); Basophils % 1.1 % (0.1-2.0); Eosinophils # 0.1 K/mm3 (0.0-0.4); Hematocrit 47.6 % (37.0-47.0); Hemoglobin 15.8 g/dL (12.2-16.2); Lymphocytes # 1.2 K/mm3 (0.7-4.5); Lymphocytes % 9.5 % (10-50); Mean Corpuscular HGB Conc 33.1 g/dL (31.8-35.4); Mean Corpuscular Volume 93.5 fl (81-99); Mean Platelet Volume 8.9 fl (7.4-10.4); Monocytes # 0.6 K/mm3 (0.1-1.0); Monocytes % 4.5 % (1.7-9.3); Neutrophils # 10.2 K/mm3 (1.8-7.8); Neutrophils % 83.9 % (37.0-80.0); Platelet Count 226 K/mm3 (142-424); Red Blood Count 5.09 M/mm3 (4.20-5.40); White Blood Count 12.2 K/mm3 (4.8-10.8)
[2024-05-19] MEDS: ACETAMINOPHEN 500MG TAB 1000 MG PO (17:18)
[2024-05-19] MEDS: BELLADONNA ALKALOIDS 60 ML ML PO (17:18)
[2024-05-19] MEDS: IBUPROFEN 400 MG TABLET 800 MG PO (17:18)
[2024-05-19 17:22] LABS: Coronavirus 19, PCR Not Detected (NotDetected); Influenza A, PCR Not Detected (NotDetected); Influenza B, PCR Not Detected (NotDetected)
[2024-05-19 17:25] LABS: Alanine Aminotransferase 37 U/L (12-78); Albumin Level 3.8 g/dl (3.5-5.0); Albumin/Globulin Ratio 1.4 (1.1-1.8); Alkaline Phosphatase 104 U/L (38-126); Aspartate Amino Transferase 72 U/L (14-36); Bilirubin,Total 0.5 mg/dl (0.2-1.3); Blood Urea Nitrogen 19 mg/dl (7-17); Calcium 8.2 mg/dl (8.4-10.2); Carbon Dioxide 24 mmol/L (22.0-30.0); Chloride 107 mmol/L (98-107); Creatinine Clearance Estimated 134 mL/min (50-200); Estimated Glomerular Filt Rate 93 ml/min (>60); GFR (African American) 112 ML/MIN (>60); Globulin 2.7 g/dL (1.3-3.2); Glucose 155 mg/dl (74-100); Sodium 136 mmol/L (136-145); Total Protein,Serum 6.5 g/dl (6.3-8.2)
[2024-05-19 17:29] LABS: D-Dimer 0.64 ug/mL (0.0-0.5)
--- NOTE | 2024-05-19 17:29 | PC.NURSE ---
patient gone to XRay at this time.
[2024-05-19 17:40] LABS: Troponin I < 0.01 ng/ml (0.00-0.034)
[2024-05-19] MEDS: ONDANSETRON 4MG ODT 4 MG SL (17:56)
[2024-05-19 18:00] VITALS: BP 130/84; PULSE 100; RESP 13; O2SAT 96
[2024-05-19 18:00] LABS: HIV (1&2) Antibody Rapid NONREACTIVE (NONREACTIVE)
[2024-05-19 18:30] VITALS: BP 135/82; PULSE 109; RESP 23; O2SAT 95
[2024-05-19 19:57] LABS: Troponin I < 0.01 ng/ml (0.00-0.034)
[2024-05-19 20:30] VITALS: BP 142/78; PULSE 97; RESP 21; TEMP 36.6; O2SAT 95
[2024-05-20 05:10] LABS: HCV Ab Non Reactive (Non Reactive)
== END 2024-05-19 20:35 | disposition home or self-care (01) ==
PROVIDERS: Physician Assistant; Emergency Provider Emergency Medicine; PCP Nurse Practitioner Family
DX: R07.9 Chest pain, unspecified (principal); Z72.0 Tobacco use; R07.1 Chest pain on breathing
CPT/HCPCS: 71046; 80053; 84484; 85025; 85378; 86803; 87389; 87636; 93005; 99284; Q0162

== ENCOUNTER 2024-06-01 13:15 | Outpatient (CLI) | payer OTHER, SELFPAY ==
[2024-06-01 17:05] LABS: Basophils # 0.1 K/mm3 (0-0.2); Basophils % 0.5 % (0.1-2.0); Eosinophils # 0.1 K/mm3 (0.0-0.4); Eosinophils % 0.5 % (0.1-12.0); Hematocrit 45.9 % (37.0-47.0); Hemoglobin 15.2 g/dL (12.2-16.2); Lymphocytes # 2.4 K/mm3 (0.7-4.5); Lymphocytes % 14.8 % (10-50); Mean Corpuscular HGB Conc 33.1 g/dL (31.8-35.4); Mean Corpuscular Hemoglobin 31.1 pg (27.0-31.2); Mean Corpuscular Volume 93.8 fl (81-99); Mean Platelet Volume 10.3 fl (7.4-10.4); Monocytes # 0.8 K/mm3 (0.1-1.0); Monocytes % 4.8 % (1.7-9.3); Neutrophils # 12.7 K/mm3 (1.8-7.8); Neutrophils % 79.4 % (37.0-80.0); Platelet Count 257 K/mm3 (142-424); White Blood Count 15.9 K/mm3 (4.8-10.8)
[2024-06-01 17:14] LABS: MANUAL DIFFERENTIAL MANUAL DIFFERENTIAL (MANUAL DIFF)
[2024-06-01 17:51] LABS: Eosinophils % 1 % (0-3); Giant Platelets 1+; Lymphocytes % 18 % (10-50); Monocytes % 3 % (2-9); Neutrophils % 77 % (42-76); RBC Morphology Normal; Total Cells Counted 100
[2024-06-01 17:52] LABS: Platelet Estimate Normal
[2024-06-01 18:02] LABS: Albumin Level 4.1 g/dl (3.5-5.0); Albumin/Globulin Ratio 1.6 (1.1-1.8); Aspartate Amino Transferase 20 U/L (14-36); Bilirubin,Total 0.4 mg/dl (0.2-1.3); Chloride 107 mmol/L (98-107); Estimated Glomerular Filt Rate 79 ml/min (>60); GFR (African American) 96 ML/MIN (>60); Globulin 2.5 g/dL (1.3-3.2); Glucose 114 mg/dl (74-100); Potassium 4.5 mmoL/L (3.5-5.1); Total Protein,Serum 6.6 g/dl (6.3-8.2)
[2024-06-01 18:14] LABS: Alanine Aminotransferase 21 U/L (12-78); Alkaline Phosphatase 78 U/L (38-126); Anion Gap 14.5 mEq/L (5-15); Blood Urea Nitrogen 27 mg/dl (7-17); Calcium 9.6 mg/dl (8.4-10.2); Carbon Dioxide 19 mmol/L (22.0-30.0); Sodium 136 mmol/L (136-145)
[2024-06-01 18:30] LABS: Hemoglobin A1C 6.8 % (4.0-6.0)
== END 2024-06-01 23:59 | disposition home or self-care (01) ==
LOC: LAB.DROPOF 06-02 10:04
PROVIDERS: PCP Nurse Practitioner Family; Visit Provider Nurse Practitioner Family
DX: R10.9 Unspecified abdominal pain (principal); R31.9 Hematuria, unspecified; R31.0 Gross hematuria; E11.9 Type 2 diabetes mellitus without complications; Z79.84 Long term (current) use of oral hypoglycemic drugs
CPT/HCPCS: 80053; 83036; 85007; 85025; 85027; 87086; 87088; 87186

== ENCOUNTER 2024-06-08 13:44 | Outpatient (CLI) | payer OTHER, SELFPAY ==
--- NOTE | 2024-06-08 13:45 | US_ITS ---
FINAL REPORT CLINICAL HISTORY: gross hematuria, flank pain COMPARISON: None FINDINGS: ULTRASOUND BLADDER WITH POST VOID RESIDUAL Bladder volumes were estimated based on 3 dimensional measurements, pre- and postvoid. Prevoid bladder volume: 276 mls, which is normal. Postvoid bladder volume: 50 mls, which is mildly abnormal. Bladder wall is within normal limits. IMPRESSION: Mild increased postvoid residual without obvious bladder wall thickening. Reviewed, Interpreted and Dictated by Manuelito Rebolledo MD Transcribed by Roma Ochoa Authenticated and [facility]
--- NOTE | 2024-06-08 13:45 | US_ITS ---
FINAL REPORT CLINICAL HISTORY: .HEMATURIA COMPARISON: None FINDINGS: RENAL ULTRASOUND Ultrasound images of the kidneys were obtained. Limited images of the liver parenchyma demonstrate normal echogenicity. The right kidney measures 12.6 cm in length. It is normal echogenicity. There is no hydronephrosis. The left kidney measures 10.5 cm in length. It is normal echogenicity. There is no hydronephrosis. IMPRESSION: Normal renal ultrasound. Reviewed, Interpreted and Dictated by Manuelito Rebolledo MD Transcribed by Roma Ochoa Authenticated and [facility]
== END 2024-06-08 23:59 | disposition home or self-care (01) ==
LOC: RAD 13:44
PROVIDERS: PCP Nurse Practitioner Family; Visit Provider Nurse Practitioner Family
DX: R31.0 Gross hematuria (principal)
CPT/HCPCS: 76770; 76857

== ENCOUNTER 2024-08-10 10:15 | Outpatient (CLI) | payer OTHER, SELFPAY ==
--- NOTE | 2024-08-10 10:20 | XR_ITS ---
FINAL REPORT CLINICAL HISTORY: lumbago COMPARISON: 02/14/2017 FINDINGS: 3 views of the lumbar spine were obtained. There is mild levoscoliosis. Alignment is otherwise normal. Vertebral body height is preserved. There is mild multilevel degenerative disc disease. No acute paraspinal abnormality. IMPRESSION: Degenerative disease without acute abnormality, progressed since the prior from 2016. Reviewed, Interpreted and Dictated by Kamilla Lanier MD Transcribed by Roma Ochoa Authenticated and . [facility]
--- NOTE | 2024-08-10 10:20 | XR_ITS ---
FINAL REPORT CLINICAL HISTORY: thoracic back pain FINDINGS: AP, lateral, and swimmer's views of the thoracic spine were obtained. There is no prior exam for comparison. There is mild compression deformity of what is likely T10, favored to be chronic. There is no acute fracture or acute malalignment. There is multilevel degenerative disc disease. Paraspinal soft tissues are within normal limits. IMPRESSION: Degenerative changes without acute osseous abnormality of the thoracic spine. Reviewed, Interpreted and Dictated by Kamilla Lanier MD Transcribed by Roma Ochoa Authenticated and [facility]
--- NOTE | 2024-08-10 10:20 | US_ITS ---
FINAL REPORT TECHNIQUE: Limited sonographic images of the abdomen with attention to the spleen were obtained. CLINICAL HISTORY: calcifications of spleen COMPARISON: None FINDINGS: The spleen is 8.2 cm, which is normal in size. Splenic calcifications are present consistent with splenic granulomas. The left kidney is unremarkable without hydronephrosis or mass. IMPRESSION: No acute abnormality. Splenic granulomas. Reviewed, Interpreted and Dictated by Kamilla Lanier MD Transcribed by Roma Ochoa Authenticated and [facility]
== END 2024-08-10 23:59 | disposition home or self-care (01) ==
LOC: RAD 10:15
PROVIDERS: PCP Nurse Practitioner Family; Visit Provider Nurse Practitioner Family
DX: M54.6 Pain in thoracic spine (principal); M54.50 Low back pain, unspecified; Q89.09 Congenital malformations of spleen
CPT/HCPCS: 72072; 72100; 76705

== ENCOUNTER 2024-09-14 10:00 | Outpatient (RCR) | payer OTHER, SELFPAY ==
--- NOTE | 2024-09-02 12:32 | HMH.PTOPEV ---
PT Outpatient Evaluation Rehab PT Outpatient Evaluation Start: 09/02/24 11:42 Freq: Status: Active Protocol: Document 09/02/24 11:42 WILLIAN (Rec: 09/02/24 12:32 WILLIAN [id number]) E-signed By Juan Martin, PT Outpatient Therapy Subjective History Subjective History Pt is a 39 yof who is referred to [facility] outpatient therapy with complaints of mid to low back pain. She reports that she has had back pain for years but it has worsened in the past 6 months. She reports that she cannot recall a particular event that would have coincided with her symptoms worsening. She denies numbness and tingling and denies pain into her upper or lower extremities. The pt reports that she has always been very flexible and double -jointed. The pt reports that she has not found anything that relieves the pain. Occupation: Home [employer] PMH: Hypersomnia, T2DM, Depression, Anxiety New diagnosis of cancer in past 12 No months? Chief Complaint Pain Symptom Type Ache,Sharp Symptoms Relieved By Nothing Symptoms Aggravated By Prone,Sitting,Standing,Bending /Stooping,Physical Activity, Walking,Lifting Prior Functional Limitations None Current Functional Limitations Lifting,Housework,Sleeping, Standing,Sitting,Squatting, Walking Symptom Description Constant but Variable,Activity Dependent Level of pain today (0-10) 4 Pain scale - at its best (0-10) 4 Pain scale - at its worst (0-10) 10 Lumbopelvic Eval Posture Thoracic Spine Posture Standing Position Neutral Lumbar Spine Posture Standing Position Increased Lordosis Assistive device Assistive Devices None / NA Gait Observation General Gait Pattern Observation No Deviations/Normal Palapation tenderness bilateral thoracic spinal tenderness Yes: 2/4 TTP Centrally to T7- T11 (hypomobility also noted) lumbar spinal tenderness Yes: 3/4 TTP Centrally to L4- S1 Accessory Movement T-spine Vertebrae Accessory Movements Central [employer] [place] that Elicit Symptoms T10 bilateral L4 bilateral L5 bilateral S1 bilateral Range of Motion Lumbar Spine Active Flexion Range of 25 Motion (degrees) Lumbar Spine Active Extension Range of -5 Motion (degrees) Left Lumbar Spine Lateral Flexion Active 10 Range of Motion (degrees) Right Lumbar Spine Lateral Flexion 10 Active Range of Motion (degrees) Lumbar Spine ROM Limitations Pain Manual Muscle Test Bilateral Knee Extension Strength Grade 4 Good Knee Flexion Strength Grade 4 Good Hip Flexion Strength Grade 3+ Fair+ Hip Abduction Strength Grade 3 Fair Hip Extension Strength Grade 3 Fair Extensor Hallucis Longus Strength Grade 5 Normal Ankle Dorsiflexion Strength Grade 5 Normal Gastronemius/Soleus Strength Grade 4 Good DTR Rt Patellar 2+ Lt Patellar 2+ Rt Gastroc/Soleus 1+ Lt Gastroc/Soleus 1+ Special Tests Lumbar Spine Screen Positive Forward Bending Test- Standing Negative Left,Negative Right Hip Sitting Root Test Negative Left,Negative Right Forward Bending Test- Sitting Negative Left,Negative Right Hip Scouring (Quadrant) Test Negative Left,Negative Right Hip Corey (TEODORO) Test Positive Left,Positive Right Hip Dayna Test Negative Left,Negative Right Unilateral Straight Leg Raise (Lasegue) Negative Left,Negative Right Test Sacroiliac Joint Compression Test Positive Left,Positive Right Sacroiliac Joint Distraction Test Positive Left,Positive Right Lumbar Spine Thompson Test Negative Left,Negative Right Kalpana's Sign Test Negative Left,Negative Right Oswestry Index Section 1 Pain Intensity The pain comes and goes and is moderate Section 2 Personal Care (Washing,[place]ing) increase the pain and I find it necessary to change my way of doing it Section 3 Lifting lifting heavy weights off the floor, but I can manage light to medium Section 4 Walking I cannot walk more than 1/4 mile without increasing pain Section 5 Sitting Pain prevents me from sitting for more than 10 minutes Section 6 Standing I cannot stand more than 10 minutes without increasing pain Section 7 Sleeping Because of my pain, my normal night's sleep is less than 4 hours Section 8 Social Life Pain has restricted my social life and I do not go out often Section 9 Traveling I get extra pain while traveling which compels me to seek alternate fo Section 10 Changing Degreee of Pain My pain is gradually getting worse Score and Risk Level Oswestry Sc 34 Oswestry Risk Level Severe Disability Miscellaneous Dx PT Eval Objective Objective Hypermobility: L4-S1 Hypomobility: T7-T11 Outpatient Therapy Assessment Impairments Problems/Impairmments Palpation Tenderness,Impaired Range of Motion,Impaired Strength,Impaired Walking, Impaired Standing,Impaired Sitting,Impaired Lifting, Impaired Household Care, Impaired Work Activities, Subjective C/O Pain Prognosis Rehab Potential Good Comment w HEP Compliance Clinical Impression Consistent with Diagnosis Yes Consistent with LBP with instability Additional details: Pt presents with signs and symptoms consistent with LBP with instability with accompanied hypomobility in the thoracic spine. Pt would benefit from skilled PT with an emphasis on core stabilization, thoracic mobility and LE strengthening to promote a return to her PLOF and to address her current impairments. Short Term Goals Number of Weeks 4 Decreased Palpation Tenderness Yes: 1-2/4 with TTP assessment above Increase Range of Motion Yes: 50-75% WNL Lumbar AROM Increase Strength Yes: 4/5 to B hips/knee MMT Increase Ability to Stand Yes: 30 minutes without increasing pain Increase Ability to Sit Yes: 30 minutes without increasing pain Improve Ability For Household Care Yes: Light cleaning without increasing pain Improve Oswestry Score Yes: <29 Decrease Subjective C/O Pain Yes: 10/30 with above assessment Patient to be Ind w/ HEP Yes Senior Living Goals Number of Weeks 8 Decreased Palpation Tenderness Yes: 0-1/4 to TTP Assessment Above Increase Range of Motion Yes: 75-100% WNL AROM of Lumbar Spine Increase Strength Yes: 4+/5 to B hips/knees MMT Increase Ability to Stand Yes: 1 hour without increasing pain Increase Ability to Sit Yes: 1 hour without increasing pain Restore Ability to Lift Objects to Waist Yes: 20# with proper mechanics Level and without increasing pain Improve Tolerance to Work Activities Yes: Normal Daily work duties without increasing pain Improve Oswestry Score Yes: <24 Decrease Subjective C/O Pain Yes: 2-08/30 with above assessment Patient to be Ind w/ Advanced HEP Yes Outpatient Therapy Plan of Care Treatment Plan May Include Therapeutic Exercise Including Home Yes Exercise Program Manual Therapy Techniques Yes Neuromuscular Re-education Yes Therapeutic Activities to Return to Yes Previous Functional/Work Level Gait Training Yes ADL/Self Care Education Yes Mechanical Traction Yes Dry Needling Yes Thermal Modalities Yes Electrical Stimulation Yes Ultrasound/Phonophoresis Yes Manual Lymphatic Drainage Yes Eval/Re-Eval Yes Frequency Times per week 1-2 Duration Number of Weeks 8 Addendums This patient is a candidate for social No or vocational rehab? Patient/Guardian verbally acknowledges Yes understanding of treatment program and consents to further treatment? Patient/Guardian verbally acknowledges Yes understanding of diagnosis, prognosis and goals for treatment? Eval Complexity PT Charges 87957 - Moderate Complexity Shoulder/Elbow Eval Shoulder Objective Measurements Elbow Objective Measurements PHYSICIAN CERTIFICATION: I certify the specified therapy services for Jessie Sloan are required, authorized, and reviewed every 30 days.
== END 2024-09-14 23:59 | disposition home or self-care (01) ==
LOC: PT 10:00
PROVIDERS: PCP Nurse Practitioner Family; Visit Provider Nurse Practitioner Family
DX: M54.6 Pain in thoracic spine (principal); M54.50 Low back pain, unspecified
CPT/HCPCS: 97110; 97140; 97163; 97530

== ENCOUNTER 2024-09-14 14:38 | Outpatient (CLI) | payer OTHER, SELFPAY ==
[2024-09-14 14:17] LABS: Uric Acid 5.3 mg/dl (2.5-6.2)
[2024-09-14 14:25] LABS: Erythrocyte Sedimentation Rate 8 mm/hr (0-20)
[2024-09-14 14:32] LABS: 25-OH Vitamin D, Total 53.5 ng/mL (30-100)
[2024-09-15 14:54] LABS: RA Latex Turbid. <10.0 IU/mL (<14.0)
[2024-09-16 09:22] LABS: Antinuclear Antibodies, IFA Negative (.)
== END 2024-09-14 23:59 | disposition home or self-care (01) ==
LOC: LAB.DROPOF 14:38
PROVIDERS: PCP Nurse Practitioner Family; Visit Provider Nurse Practitioner Family
DX: M54.6 Pain in thoracic spine (principal); M54.50 Low back pain, unspecified; Z68.30 Body mass index [BMI] 30.0-30.9, adult; E66.9 Obesity, unspecified
CPT/HCPCS: 82306; 84550; 85651; 86038; 86431

== ENCOUNTER 2024-09-28 14:43 | Outpatient (CLI) | payer OTHER, SELFPAY ==
--- NOTE | 2024-09-28 15:00 | MR_ITS ---
FINAL REPORT TECHNIQUE: Multiplanar MR without contrast CLINICAL HISTORY: thoracic back pain, failed PT pain x many years COMPARISON: None FINDINGS: MRI THORACIC SPINE: The thoracic vertebral bodies are normal in height. The alignment is unremarkable. There may be changes of old underlying Schuermann's disease in the mid and lower thoracic spine. T1-2: Unremarkable T2-3: Unremarkable T3-4: Unremarkable T4-5: Unremarkable T5-6: Unremarkable T6-7: Small left paracentral disc protrusion which minimally contacts the spinal cord. No canal stenosis is noted. T7-8: Tiny right paracentral disc protrusion without canal stenosis. T8-9: A moderate central protrusion is noted with mass effect upon the spinal cord, with mild canal stenosis. T9-10: Minimal annular bulge noted without canal stenosis or cord contact. T10-11: A minimal annular bulge is present without canal stenosis or cord contact. T11-12: Unremarkable IMPRESSION: Multilevel thoracic degenerative change as described, most pronounced at the T8-9 level, in which a moderate central disc protrusion produces slight mass effect upon the spinal cord and produces mild canal stenosis. Reviewed, Interpreted and Dictated by Manuelito Rebolledo MD Transcribed by Maile Wallace Authenticated and [facility]
--- NOTE | 2024-09-28 15:45 | MR_ITS ---
FINAL REPORT TECHNIQUE: Multiplanar MR without contrast CLINICAL HISTORY: lumbar back pain, failed PT pain x many years COMPARISON: none FINDINGS: Sagittal images show normal vertebral height. There is mild levoscoliosis. Marrow signal pattern is unremarkable. L1-2: Unremarkable L2-3: Unremarkable L3-4: Unremarkable L4-5: Unremarkable L5-S1: No focal disc protrusion. Mild facet arthropathy. IMPRESSION: Minimal facet degeneration in the lower lumbar spine with mild levoscoliosis. No canal stenosis. Reviewed, Interpreted and Dictated by Manuelito Rebolledo MD Transcribed by Vilma Perez Authenticated and [facility]
--- OUTSIDE RECORDS SUMMARY | 2024-09-30 21:34 | XMS_ITS | Data Portability ---
Author Organization PATO BOYER [facility] & ROSALIND Freedman ADMIN Address [address] [place] [id number] Care Team Providers Care Air Quality Manager Name Role Phone SUZAN MANE Referring Provider SUZAN MANE Primary Care Provider Assessment No assessment recorded. Plan of Treatment Reminders Order Date Submit Date Provider Last Modified By Organization Details Last Modified Time Details Appointments None recorded. Lab None recorded. Referral None recorded. Procedures None recorded. Surgeries None recorded. Imaging None recorded. Medication Orders pantoprazol e 40 mg tablet,mell yed release 2021 022 [facility], [address], [address], [place], [address], 10:41:37 Patient TargetsNo targets recorded. Patient InstructionsNo instructions recorded. Reason for Referral None Reported. Results Created Date Observation Date Name Description Value Unit Range Abnormal Flag Note LastModifiedBy Organization Detail LastModifiedTime Result Notes None recorded. Problems Name Problem SNOMED Code Status Onset Date Resolution Date Notes Provider Name and Address Organization Details Recorded Time Ring's esophagus 467777371 Active 022 PATO Austin [facility] & [place] 15:42:54 Problem Notes None recorded. Medical Equipment None Reported. Allergies Allergen ID Allergen Name Allergen Category Reaction Reaction Severity Criticality Documentation Date Start Date Code Code System Note Provider Name and Address Organization Details Recorded Time 97040 Substance with sulfonami de structure and antibacte rial mechanism of action (substanc e) medicatio n Not available Not available Not available 05/24/2022 12005 8003 SNOMED PATO [facility] [place] 2 10:08:17 60964 codeine medicatio n Not available Not available Not available 05/24/2022 2670 RxNorm PATO [facility] - [place] [facility] [place] 2 10:08:22 Medications Name Sig Start Date Stop Date Status Note LastModified by Organization Details LastModified Time promethazin e-DM 6.25 mg-15 mg/5 mL oral syrup 05/24 completed Not Available Not Available Not Available venlafaxine ER 75 mg capsule,ext ended release 24 hr active Not Available Not Available Not Available clindamycin HCl 300 mg capsule active Not Available Not Available Not Available trazodone 50 mg tablet active Not Available Not Available Not Available Pain Reliever (acetaminop hen) 325 mg tablet 05/24 completed Not Available Not Available Not Available cetirizine 10 mg tablet active Not Available Not Available Not Available azithromyci n 250 mg tablet 05/24 completed Not Available Not Available Not Available ibuprofen 800 mg tablet active Not Available Not Available Not Available fluconazole 150 mg tablet active Not Available Not Available Not Available venlafaxine ER 150 mg capsule,ext ended release 24 hr active Not Available Not Available Not Available omeprazole 40 mg capsule,del ayed release active Not Available Not Available Not Available amoxicillin 875 mg tablet active Not Available Not Available Not Available Lice Treatment (permethrin ) 1 % topical liquid 05/24 completed Not Available Not Available Not Available pantoprazol e 40 mg tablet,mell yed release Take by oral route for 30 days. 2021 active Not Available Not Available Not Avai lable promethazin e 25 mg tablet active Not Available Not Available Not Available Adderall XR 10 mg capsule,ext ended release active Not Available Not Available Not Available mupirocin 2 % topical ointment active Not Available Not Available Not Available ibuprofen 600 mg tablet 05/24 completed Not Available Not Available Not Available bromphenira mine-pseudo ephedrine-D M 2 mg-30 mg-10 mg/5 mL oral syrup 05/24 completed Not Available Not Available Not Available cefdinir 300 mg capsule 05/24 completed Not Available Not Available Not Available fluticasone propionate 50 mcg/actuati on nasal spray,suspe nsion active Not Available Not Available Not Available dicyclomine 10 mg capsule active Not Available Not Available Not Available cholecalcif delano (vitamin D3) 25 mcg (1,000 unit) capsule active Not Available Not Available Not Available atomoxetine 40 mg capsule active Not Available Not Available Not Available Gavilyte-C 240 gram-22.72 gram-6.72 gram-5.84 gram oral solution as directed orally 8 oz q15 until empty per office direction s active Not Available Not Available No t Available Jardiance 10 mg tablet 05/24 completed Not Available Not Available Not Available Jardiance 25 mg tablet active Not Available Not Available Not Available Vitals Date Recorded Body weight Heart rate Systolic blood pressure Diastolic blood pressure Provider Name and Address Organization Details Last Updated DateTime 05/24/2022 36071.3 g 78 /min 128 mm[Hg] 80 mm[Hg] Samaraaddie Solo [place] [facility] [place] 05/24/2022 10:17:00 Social History None recorded. Functional Status None recorded. Mental Status None recorded. Family History Relationship Description Onset Age of this Age Resolved Age Notes LastModified by Organization Details LastModified Time Mother Chronic obstructive pulmonary disease pt. added direct ly (05/21) API-13 Not available 05/21/2022 12:34:59 Mother Disorder of endocrine system pt. added direct ly (05/21) API-13 Not available 05/21/2022 12:35:03 Mother Gastroesopha geal reflux disease pt. added direct ly (05/21) API-13 Not available 05/21/2022 12:35:27 Mother Myocardial infarction pt. added direct ly (05/21) API-13 Not available 05/21/2022 12:35:34 Mother Heart disease pt. added direct ly (05/21) API-13 Not available 05/21/2022 12:35:42 Mother Hypercholest erolemia pt. added direct ly (05/21) API-13 Not available 05/21/2022 12:35:49 Mother Hypertensive disorder pt. added direct ly (05/21) API-13 Not available 05/21/2022 12:35:57 Mother Cerebrovascu lar accident pt. added direct ly (05/21) API-13 Not available 05/21/2022 12:36:37 Father Chronic obstructive pulmonary disease pt. added direct ly (05/21) API-13 Not available 05/21/2022 12:34:59 Father Disorder of endocrine system pt. added direct ly (05/21) API-13 Not available 05/21/2022 12:35:03 Father Gastroesopha geal reflux disease pt. added direct ly (05/21) API-13 Not available 05/21/2022 12:35:27 Father Myocardial infarction pt. added direct ly (05/21) API-13 Not available 05/21/2022 12:35:34 Father Heart disease pt. added direct ly (05/21) API-13 Not available 05/21/2022 12:35:42 Father Hypercholest erolemia pt. added direct ly (05/21) API-13 Not available 05/21/2022 12:35:49 Father Hypertensive disorder pt. added direct ly (05/21) API-13 Not available 05/21/2022 12:35:57 Father Cerebrovascu lar accident pt. added direct ly (05/21) API-13 Not available 05/21/2022 12:36:37 Brother Disorder of endocrine system pt. added direct ly (05/21) API-13 Not available 05/21/2022 12:35:03 Brother Gastroesopha geal reflux disease pt. added direct ly (05/21) API-13 Not available 05/21/2022 12:35:27 Sister Disorder of endocrine system pt. added direct ly (05/21) API-13 Not available 05/21/2022 12:35:03 Sister Gastroesopha geal reflux disease pt. added direct ly (05/21) API-13 Not available 05/21/2022 12:35:27 Daughter Autoimmune disease pt. added direct ly (05/21) API-13 Not available 05/21/2022 12:35:12 Daughter Gastroesopha geal reflux disease pt. added direct ly (05/21) API-13 Not available 05/21/2022 12:35:27 Daughter Substance abuse pt. added direct ly (05/21) API-13 Not available 05/21/2022 12:36:48 Son Gastroesopha geal reflux disease pt. added direct ly (05/21) API-13 Not available 05/21/2022 12:35:27 Son Seizure disorder pt. added direct ly (05/21) API-13 Not available 05/21/2022 12:36:13 Son Cerebrovascu lar accident pt. added direct ly (05/21) API-13 Not available 05/21/2022 12:36:37 Medical History No medical history recorded. Gynecological HistoryNo gynecological history recorded. Obstetrics History GPAL:G 0 P 0 0 0 0 Past Encounters Encounter ID Performer Location Encounter Start Date Encounter Closed Date Diagnosis/Indication Diagnosis SNOMED-CT Code Diagnosis ICD10 Code Diagnosis Note [id number] Griselda Tamayo NP [facility] [address] 05/24/2022 10:01:07 05/24/2022 10:31:45 Ring's esophagus 093531745 K22.70 - change omeprazole to pantoprazo le b.i.d.- EGD scheduled History of polyp of colon 463659723 Z86.010 History of colitis 80203 9006 Z87.19 - colonoscop y scheduled Health Concerns Section Related Observation LastModified by Organization Detai ls LastModified Time None Recorded Concern Status LastModified by Organization Details LastModified Time None Recorded Advance Directives Directive None Recorded Payers Encounter Date Sequence Insurance Name Policy Number Policy Mcdaniels Covered Member ID Mcdaniels Member ID Guarantor Name 05/24/2022 2 ERIC Sloan [id number] Jessie Rodjennifer Notes Date Note Type Note Provider Name and Address Organization Details Recorded Time 05/24/2022 text/html patient is a 37-year-old female referred to our office by Dr. Edmar Storey. Patient was recently treated for colitis at [facility]. Reports abdominal pain has improved and diarrhea has resolved. Reports she did have some blood-tinged mucousy stool. 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 Her last EGD and colonoscopy was in November of 2020 at [facility]. Reports she also had history of colon polyps. Griselda Tamayo, PYTHON DEVELOPER [address], [place], [address], [facility] - [place] & [place] 05/24/2022 10:33:20 OBGyn Episode No OBEpisode recorded.
== END 2024-09-28 23:59 | disposition home or self-care (01) ==
LOC: RAD 14:43
PROVIDERS: PCP Nurse Practitioner Family; Visit Provider Nurse Practitioner Family
DX: M54.6 Pain in thoracic spine (principal); M54.50 Low back pain, unspecified
CPT/HCPCS: 72146; 72148

== ENCOUNTER 2024-11-30 11:07 | Outpatient (CLI) | payer OTHER, SELFPAY ==
--- OUTSIDE RECORDS SUMMARY | 2024-11-17 10:50 | XMS_ITS | Encounter Summary ---
Author Organization [facility] Address [address] [place] [address] Care Team Providers Care Feed Crusher Name Role Phone Ana M Arceo VIRAJ Primary Care Provider +1- [phone] Claritza Blair APRN, DNP Unavailable +1- [phone] Reason for Referral * Consultation (Routine) - Authorized Specialty Diagnoses / Procedures Referred By Contac t Referred To Contact Pain Medicine Diagnoses Thoracic back pain Myofascial low back pain Facet arthritis of lumbar region DDD (degenerative disc disease), thoracic Claritza Blair APRN, DNP [address] [address] Phone: tel: fax: Referral ID Status Reason Start Date Expiration Date Visits Requested Visits Authorized [id number] Authorized Specialty Services Required 11/17/2024 05/19/2026 1 1 [facility] * Consultation (Routine) - Authorized Specialty Diagnoses / Procedures Referred By Contac t Referred To Contact Physical Therapy Diagnoses Thoracic back pain Myofascial low back pain Facet arthritis of lumbar region DDD (degenerative disc disease), thoracic Claritza Blair APRN, DNP [address] [address] Phone: tel: fax: Referral ID Status Reason Start Date Expiration Date Visits Requested Visits Authorized [id number] Authorized Consult and Treat 11/17/2024 05/19/2026 1 1 Reason for Visit * Consultation (Routine) - Closed Specialty Diagnoses / Procedures Referred By Gladys t Referred To Contact Neurosurgery Diagnoses Thoracic back pain Ana M Arceo APRN [address] [place] [address] Phone: tel: fax: [place] [address] [place] [address] Phone: tel: fax: Referral ID Status Reason Start Date Expiration Date V isits Requested Visits Authorized [id number] Closed Specialty Services Required 10/28/2024 04/29/2026 1 1 Encounter Details Date Type Department Care Team (Late st Contact Info) Description 11/17/2024 10:50 AM EDT Consult [place] [address] [place] [address] Claritza Blair APRN, LALY [address] [facility] [address] [place] [address] Myofascial low back pain (Primary [...] physical therapy about 2 months ago at [facility] and [place], [place]. 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 At this time, patient should maximize conservative management. She would re-attempt physical therapy to include traction, cupping, dry needling. Can also have benefit from interventional pain and was referred to see Dr. Mancilla at [facility] for injection therapy including trigger point [...] Medicine Tobacco abuse counseling Claritza Blair APRN [facility] Department of Neurosurgery Thank you for [...] empagliflozin (Jardiance) 25 MG 1 tablet. HYDROcodone-acetaminophen ([place]) 5-325 MG tablet ibuprofen 800 MG tablet [...] documented as of this encounter Care Teams Feed Crusher Relationship Specialty Start Date End Date Ana M Arceo APRN [address] [place] [address] PCP - General 11/17/24 Claritza Blair APRN, LALY [address] [facility] [address] [place] [address] Nurse Practitioner Neurosurgery 11/17/24 documented as of this encounter
--- OUTSIDE RECORDS SUMMARY | 2024-11-17 11:31 | XMS_ITS | Encounter Summary ---
Author Organization Healthcare Address [address] [place] [address] Care Team Providers Care Project Account Manager Name Role Phone ArceoAna M guerrero Oz CALI Primary Care Provider +1- [phone] Claritza Blair APRN, DNP Unavailable +1- [phone] Encounter Details Date Type Department Care Team (Latest Contact Info) Description 11/17/2024 11:31 AM EDT - 11/17/2024 11:59 PM EDT Hospital Encounter [facility] [address], [address] [place] [address] Thoracic back pain Discharge Disposition: Home or [...] (Jardiance) 25 MG 1 tablet. HYDROcodone-acetam inophen ([place]) 5-325 MG tablet 10/19/2024 ibuprofen 800 MG [...] documented as of this encounter Care Teams Project Account Manager Relationship Specialty Start Date End Date Ana M Arceo APRN [address] [place] [address] PCP - General 11/17/24 Claritza Blair APRN, DNP [address] [place] [address] Nurse Practitioner Neurosurgery 11/17/24 documented as of this encounter
[2024-11-30 14:16] LABS: Basophils # 0.1 K/mm3 (0-0.2); Basophils % 0.8 % (0.1-2.0); Eosinophils # 0.1 Kmm3 (0.0-0.4); Eosinophils % 0.8 % (0.1-12.0); Hematocrit 47.4 % (37.0-47.0); Hemoglobin 15.2 g/dL (12.2-16.2); Immature Granulocytes # 0.05 10^3uL; Immature Granulocytes % 0.4 %; Lymphocytes # 2.6 K/mm3 (0.7-4.5); Lymphocytes % 19.3 % (10-50); Mean Corpuscular HGB Conc 32.1 g/dL (31.8-35.4); Mean Corpuscular Hemoglobin 30.1 pg (27.0-31.2); Mean Corpuscular Volume 93.9 fl (81-99); Mean Platelet Volume 12.6 fl (7.4-10.4); Monocytes % 7.1 % (1.7-9.3); Neutrophils # 9.8 K/mm3 (1.8-7.8); Neutrophils % 71.6 % (37.0-80.0); Nucleated Red Blood Cells # 0 10^3/uL; Nucleated Red Blood Cells % 0 %; Platelet Count 243 K/mm3 (142-424); Red Blood Count 5.05 M/mm3 (4.20-5.40); Red Cell Distribution Width 13.9 % (11.5-17.5); Red Cell Distribution Width-SD 48.1 fL; White Blood Count 13.7 K/mm3 (4.8-10.8)
[2024-11-30 14:32] LABS: Albumin Level 4.6 g/dl (3.5-5.0); Chloride 105 mmol/L (98-107)
[2024-11-30 14:33] LABS: Potassium 5.2 mmoL/L (3.5-5.1); Sodium 137 mmol/L (136-145)
[2024-11-30 14:35] LABS: Alanine Aminotransferase 19 U/L (12-78); Aspartate Amino Transferase 16 U/L (14-36); Blood Urea Nitrogen 16 mg/dl (7-17); Estimated Glomerular Filt Rate 93 ml/min (>60); GFR (African American) 112 ML/MIN (>60)
[2024-11-30 14:36] LABS: Albumin/Globulin Ratio 1.8 (1.1-1.8); Alkaline Phosphatase 79 U/L (38-126); Anion Gap 12.2 mEq/L (5-15); Bilirubin,Total 0.6 mg/dl (0.2-1.3); Carbon Dioxide 25 mmol/L (22.0-30.0); Chol/HDL Ratio 3.8 (1-3.5); Cholesterol 184 mg/dl (140-200); Globulin 2.6 g/dL (1.3-3.2); Glucose 212 mg/dl (74-100); HDL Cholesterol 49 mg/dl (40-60); Total Protein,Serum 7.2 g/dl (6.3-8.2); Triglycerides 112 mg/dl (30-150); VLDL Cholesterol 22 mg/dL (0-40)
[2024-11-30 14:47] LABS: Direct LDL Cholesterol 103.99 mg/dL (100-129)
[2024-11-30 15:12] LABS: Ferritin 71.9 ng/ml (6.24-137)
[2024-11-30 15:48] LABS: Vitamin B12 293 pg/mL (239-931)
[2024-11-30 18:27] LABS: Hemoglobin A1C 7.3 % (4.0-6.0)
--- OUTSIDE RECORDS SUMMARY | 2024-12-01 11:32 | XMS_ITS | Encounter Summary ---
Author Organization Healthcare Address [address] [place] [address] Care Team Providers Care Aperture Mask Etcher Name Role Phone Ana M Arceo APRN Primary Care Provider +1- [phone] Claritza Blair APRN, DNP Unavailable +1- [phone] Encounter Details Date Type Department Care Team (Late st Contact Info) Description 09/28/2024 Orders Only External Location [address] [place] [address] Provider, External Social History Tobacco Use Types Packs/Day Years Used Date Smoking Tobacco: Never Assessed Comments Unknown Sex and Gender Information Value Date Recorded Sex Assigned at Not on file Legal Sex Female 8:54 PM EDT Gender Identity Not on file Sexual Orientation Not on file documented as of this encounter Plan of Treatment Not on file documented as of this encounter Procedures Procedure Name Priority Date/Time Associated Diagnosis Comments MR NEURO OUTSIDE IMAGES 09/28/2024 3:20 PM EDT documented in this encounter Results * MR NEURO OUTSIDE IMAGES (09/28/2024 3:20 PM EDT) Anatomical Region Laterality Modality Magnetic Resonan ce 09/28/2024 3:20 PM EDT us External Provider IMG MRI PROCEDURES Final Resul t documented in this encounter Visit Diagnoses Not on filedocumented in this encounter Care Teams Aperture Mask Etcher Relationship Specialty Start Date End Date Ana M Arceo APRN [address] [place] [address] PCP - General 11/17/24 Claritza Blair, LEAD SHAREPOINT DEVELOPER, DNP [address] [address] Nurse Practitioner Neurosurgery 11/17/24 documented as of this encounter
--- OUTSIDE RECORDS SUMMARY | 2024-12-01 11:33 | XMS_ITS | Clinical Summary ---
Author Organization [facility] Address [address] [place] [address] Care Team Providers Care Filter Press Pumper Name Role Phone ArceoAna M guerrero Oz MATERIAL MOVER Primary Care Provider +1- [phone] Claritza Blair APRN, DNP Unavailable +1- [phone] Allergies Active Allergy Reactions Criticality Noted Date Comments Codeine Nausea And Vomiting Low 09/07/2024 Sulfa Drugs Nausea And Vomiting Low 09/07/2024 Medications cetirizine (ZyrTEC) 10 MG tablet 12/15/2023 Active cholecalciferol (Vitamin D-3) 125 MCG (5000 UT) capsule daily. Active cyanocobalamin (Vitamin B-12) 1000 MCG/ML injection 05/10/2024 Active empagliflozin (Jardiance) 25 MG 1 tablet. Active HYDROcodone-acet aminophen ([place]) 5-325 MG tablet 10/19/2024 Active ibuprofen 800 MG tablet 1 tablet. Active Jornay PM 80 MG capsule sustained-releas e 24 hr 04/12/2024 Active metoprolol succinate XL (Toprol-XL) 25 MG 24 hr tablet 1 tablet. Acti ve omeprazole (PriLOSEC) [address] capsule 1 capsule. 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 Vitamin D deficiency, unspecified 12/30/2023 Cervicalgia 11/26/2023 Ring's esophagus 05/27/2022 Encounters Date Type Department Care Team Description 11/17/2024 11:31 AM EDT - 11/17/2024 11:59 PM EDT Hospital Encounter [facility] Radiology [address], [address] [place] [address] Thoracic back pain Discharge Disposition: Home or Self Care 11/17/2024 10:50 AM EDT Consult [facility] [address], [address] [place] [address] Claritza Blair, MATERIAL MOVER, DNP Myofascial low back pain (Primary Dx); Thoracic back pain; Facet arthritis of lumbar region; DDD (degenerative disc disease), thoracic; Tobacco abuse counseling 11/17/2024 Travel 09/28/2024 Orders Only External Location [address] [place] [address] Provider, External 09/28/2024 Orders Only External Location [address] [place] [address] Provider, External from Last 3 Months Social History Tobacco Use Types Packs/Day Years [...] on file Sexual Orientation Not on file Last Filed Vital Signs Vital Sign Reading [...] Mass Index 30.27 11/17/2024 10:35 AM EDT Plan of Treatment Health Maintenance Due Date Last Done Comments [facility]-Depression Screening 1984 [facility]-Diabetes: Hemoglobin A1C 1984 [facility]-HIV Screening 1984 [facility]-Hepatitis C Screening 1984 [facility]-/Child/Adol SDOH Screenings 1984 Diabetes: Dental Exam 01/13/1994 [facility]-Varicella Vaccines (1 of 2 - 13+ 2-dose series) 01/13/1997 HPV Vaccines (1 - 3-dose series) 01/13/1999 [facility]- SDOH Screenings 01/13/2002 [facility]-Adult SDOH Screenings 01/13/2002 [facility]-DTaP,Tdap,and Td Vaccine s (1 - Tdap) 01/13/2003 [facility]-Hepatitis B Vaccines (1 of 3 - 19+ 3-dose series) 01/13/2003 [facility]-Pneumococcal Vaccine: Pediatrics (0 to 5 Years) and At-Risk Patients (6 to 49 Years) (1 of 2 - PCV) 01/13/2003 [facility]-Pap Smear 01/13/2005 [facility]-Cervical Cancer Screening 01/13/2014 [facility]-HPV/Cotest 01/13/2014 [id number] Vaccine (1 - 20 24-25 season) 2024 [facility]-Influenza Vaccine ([place] n Ended) 2025 [facility]-Zoster Vaccines (1 of 2) 01/13/2034 [facility]-Obesity Intervention Completed 11/17/2024 [facility]-HIB Vaccines Aged Out No longer e ligible based on patient's age to complete this topic [facility]-Hepatitis A Vaccines Aged Out No longer eligible based on patient's age to complete this topic [facility]-IPV Vaccines Aged Out No longer e ligible based on patient's age to complete this topic [facility]-Rotavirus Vaccines Aged Out No lo nger eligible based on patient's age to complete this topic Procedures Procedure Name Priority Date/Time Associated Diagnosis Comments XR SCOLIOSIS ENTIRE SPINE 2 OR 3 VIEWS Routine 11/17/2024 11:59 AM EDT Thoracic back pain MR THORACIC OUTSIDE IMAGES 09/28/2024 3:20 PM EDT MR NEURO OUTSIDE IMAGES 09/28/2024 3:20 PM EDT from Last 3 Months Results * XR Scoliosis Entire Spine 2 [...] Ajay Landis MD on 11/17/2024 12:38 PM us Claritza Blair APRN, LALY IMG XR PROCEDURES Fi nal Result * MR THORACIC OUTSIDE IMAGES (09/28/2024 3:20 PM EDT) Anatomical Region Laterality Modality Magnetic Resonan ce 09/28/2024 3:20 PM EDT us External Provider IMG MRI PROCEDURES Final Resul t * MR NEURO OUTSIDE IMAGES (09/28/2024 3:20 PM EDT) Anatomical Region Laterality Modality Magnetic Resonan ce 09/28/2024 3:20 PM EDT us External Provider IMG MRI PROCEDURES Final Resul t from Last 3 Months Insurance [employer] [facility] MEDICAID Care Teams Filter Press Pumper Relationship Specialty Start Date End Date Ana M Arceo APRN [address] [place] [address] PCP - General 11/17/24 Claritza Blair APRN, DNP [address] [facility] [address] [place] [id number] Nurse Practitioner Neurosurgery 11/17/24
--- OUTSIDE RECORDS SUMMARY | 2024-12-01 11:33 | XMS_ITS | Data Portability ---
Author Organization [facility] Address [address] [place] [address] Care Team Providers Care Facilities Director Name Role Phone SUZAN MANE Primary Care Provider [phone] SUZAN MANE Referring Provider Assessment Encounter Date Assessment Date Assessment LastModified by Organization Details LastModified Time 11/08/2024 11/08/2024 Pain History: This is a 39-year-old female with chronic mid and low back pain She has chronic mid and low back pain, denies incontinence or myelopathy. No prior back surgery. Prior imaging includes thoracic and lumbar MRI. No prior injection therapy. She has participated in physical therapy in the past, no prior dry needling. Not using controlled pain medicine at present. History of hydrocodone. Past Medical History: Active smoker, hyperlipidemia, diabetes, GERD Imaging: MRI thoracic spine Disc bulge T8-9 without significant stenosis MRI lumbar spine Multilevel spondylosis and disc degeneration without severe stenosis Surgical evaluation/ history: No prior back surgery Conservative Treatments: Physical therapy in the past, no prior dry needling Interventional treatment history: None Previous analgesics: Hydrocodone Current analgesics: NSAIDs Compliance Monitoring: No UDS today Overall moderate risk ORT, GUS reviewed Anticoagulant/A ntiplatelet Medications: None Not available 11/08/2024 16:03:15 Plan of Treatment Reminders Order Date Submit Date Provider Last Modified By Organization Details Last Modified Time Details Appointments FOLLOW UP 15 2024 09:15A ANGELITO MOSLEY Not available Not available Not available Lab None recorded. Referral physical therapist referral - eval and treat lower back and mid back myofascia l pain please include dry needling 2024 025 Not available 11/08/2024 16:06:22 Procedures remote therapeut ic monitorin g to monitor musculosk eletal system (PROC) 2024 025 Not available 11/08/2024 16:04:21 Surgeries None recorded. Imaging None recorded. Medication Orders baclofen 5 mg tablet 2024 [facility], [address], [address], [place], [address], 11/08/2024 16:12:48 Tolectin 600 600 mg tablet 2024 [facility], [address] [place] [address] [address], [place], [place], [id number], 11/08/2024 16:11:48 Patient TargetsNo targets recorded. Patient Instructions Encounter Date Encounter Id Patient Instructions Last Modified By Organization Details Last Modified Time 11/08/2024 [id number] behavioral healt h screen* [email or web address] Not available 11/30/2024 07:43:33 Reason for Referral Physical Therapist Referral for Myofascial pain eval and treat lower back and mid back myofascial pain please include dry needling Referring Physician: Chema Peña, Pain Management, Encounter Date: 11/08/2024 Problems Name Problem SNOMED Code Status Onset Date Resolution Date Notes Provider Name and Address Organization Details Recorded Time Myofascial pain 486105826 Active [facility] PATO Helm [facility] 5 14:02:54 Chronic pain 04378951 Active [facility] PATO Helm [facility] 14:02:54 Problem Notes None recorded. Procedures Surgical History Date Name Laterality Status Provider Name and Address Organization Details Recorded Time tonsilectomy/brittany noids completed Claritza Redmond [facility] 11/08/2024 15:36:07 Hernia Repair completed Claritza WHYTE [facility] 11/08/2024 15:36:22 uterus destructive procedure completed Claritza Redmond [facility] 11/08/2024 15:37:01 ligation of bilateral fallopian tubes completed Claritza Redmond [facility] 11/08/2024 15:37:25 Imaging Results None recorded. Procedure Notes None recorded. Medical Equipment None Reported. Allergies Allergen ID Allergen Name Allergen Category Reaction Reaction Severity Criticality Documentation Date Start Date Code Code System Note Provider Name and Address Organization Details Recorded Time 848003 codeine medicatio n Not available Not available Not available 11/08/2024 2670 RxNorm Claritzaanabella [facility] 15:32:37 985620 Substance with sulfonami de structure and antibacte rial mechanism of action (substanc e) medicatio n Not available Not available Not available 11/08/2024 62760 8003 SNOMED Claritzaanabella [facility] 15:32:42 Medications Name Sig Start Date Stop Date Status Note LastModified by Organization Details LastModified Time hydrocodone 5 mg-acetamin ophen 325 mg tablet Take 1 tablet every 6 hours by oral route. active Not Available Not Available No t Available Prilosec 40 mg capsule,del ayed release Take 1 capsule every day by oral route. active Not Available Not Available No t Available ropinirole 0.25 mg tablet Take 1 tablet every day by oral route. active Not Available Not Available No t Available Tolectin 600 600 mg tablet Take 1 tablet 3 times a day by oral route as directed for 30 days. 2024 active Not Available Not Available Not Avai lable vitamin B66-hblmg acid injection solution Take by injection route. active Not Available Not Available No t Available Crestor 10 mg tablet Take 1 tablet every day by oral route. active Not Available Not Available No t Available venlafaxine 225mg once a day active Not Available Not Available No t Available ibuprofen active Not Available Not Jannet ilable Not Available Vitamin D3 active Not Available Not Av ailable Not Available cetirizine 10 mg capsule Take by oral route. active Not Available Not Available No t Available Jardiance 25 mg tablet Take 1 tablet every day by oral route. active Not Available Not Available No t Available baclofen 5 mg tablet Take 1 tablet twice a day by oral route as directed for 30 days. 2024 active Not Available Not Available Not Avai labjl Jornay PM 40 mg capsule,del ayed release,ext ended release sprinkle TAKE 1 CAPSULE BY MOUTH EVERY NIGHT AT BEDTIME 11/08 completed Not Available Not Available Not Available Jornay PM 60 mg capsule,del ayed release,ext ended release sprinkle TAKE 1 CAPSULE BY MOUTH EVERY NIGHT AT BEDTIME 11/08 completed Not Available Not Available Not Available Jornay PM 80 mg capsule,del ayed release,ext ended release sprinkle TAKE ONE CAPSULE BY MOUTH EVERY NIGHT AT BEDTIME active Not Available Not Available No t Available Vitals Date Recorded Body height Body mass index (BMI) Body weight Oxygen saturation Oxygen saturation in Arterial blood by Pulse oximetry Heart rate Systolic blood pressure Diastolic blood pressure Provider Name and Address Organization Details Last Updated DateTime 165.1 cm 26.6 kg/m2 96546.7 8 g 98 % 98 % 99 /min 131 mm[Hg] 84 mm[Hg] Claritza Redmond [facility] 15:32:29 Social History Question Answer Notes LastModified by Organizat ion Details LastModified Time Tobacco Smoking Status Current Every Day Smoker Claritza park [facility] 11/08/2024 15:35:58 Do You Have An Advance Directive? No [email or web address] Information not available 11/08/2024 Do You Have A Medical Power Of Semiconductor Bonder? No [email or web address] Information not available 11/08/2024 What Is Your Relationship Status? Single [email or web address] Information not available 11/08/2024 How Much Tobacco Do You Smoke? 1 PPD [email or web address] Information not available 11/08/2024 Sex: Unknown Functional Status Question Answer Note LastModified by Organizat ion Details LastModified Time Do you use any illicit or recreational drugs? No [email or web address] Information not available 11/08/2024 What is your level of alcohol consumption? None [email or web address] Information not available 11/08/2024 Are you currently employed? Yes [email or web address] Information not available 11/08/2024 Are you able to walk? YESWOREST [email or web address] Information not available 11/08/2024 Mental Status None recorded. Family History Nothing Reported. Medical History Condition Response Bipolar Disease N Coronary Artery Disease N Gout N Seizure Disorder N Atrial Fibrillation N Thyroid Disease N Head Trauma/Injury N Hernia N Depression Y COPD N Anxiety Disorder N Acid Reflux (GERD) N Cancer N Skin Disorder N Stroke N High Cholesterol Y Liver Disease N Rheumatoid Arthritis N Fibromyalgia N Headaches N Autoimmune Disease N Kidney Disease N Osteoarthritis N Neurosurgery N DVT N Peptic Ulcer Disease N Anemia N Heart Attack ([place]) N Diabetes Y Cardiomyopathy N Bleeding Disorder N CHF N AIDS/HIV N Inflammatory Bowel Disease N Dementia N Asthma N Substance Abuse N Sleep Apnea N Hepatitis N Heart Disease N Pulmonary Embolism N Chronic Low Back Pain Y Hypertension N Osteoporosis N Gynecological HistoryNo gynecological history recorded. Obstetrics History GPAL:G 0 P 0 0 0 0 Past Encounters Encounter ID Performer Location Encounter Start Date Encounter Closed Date Diagnosis/Indication Diagnosis SNOMED-CT Code Diagnosis ICD10 Code Diagnosis Note [id number] CHEMA PEÑA MD [address] [facility] [address] [place] [address] 11/08/2024 14:33:37 11/08/2024 16:01:12 Chronic pain 36379714 G89.29 Myofascial pain 62628236 9 M79.18 I recommend physical therapy with dry needling and trial of baclofen/T olectin. Follow-up in 1 month for reassessme nt, she will bring her MRI disc to assess for Modic endplate change Health Concerns Section Related Observation LastModified by Organization Detai ls LastModified Time None Recorded Concern Status LastModified by Organization Details LastModified Time None Recorded Advance Directives Directive N: Payers Insurance Date Sequence Insurance Name Policy Number Policy Mcdaniels Covered Member ID Mcdaniels Member ID Guarantor Name 11/05/[address] [facility] (MEDICAID HMO) Jessie Sloan [id number] Jessie Sloan Notes Date Note Type Note Provider Name and Address Organization Details Recorded Time 11/08/2024 text/html Low back painReported bypatient.Onset:maricruz e of onset: (6 years ago) Location:midline; paraspinal: bilateral; pain is not radiating Duration:varies throughout the day Context:started without cause Quality:aching; shooting Pain IntensitySevere; current pain level: 10/10; worst pain level: 10/10 Alleviating Factors:opioids (Hydrocodone) Aggravating Factors:sitting; standing; walking; lifting; carrying; twisting; bending/squatting Associated Symptoms:no weakness; no numbness; no tingling; no swelling; no popping/clicking; no bowel incontinence; no urinary retention; no urinary incontinence; no perineal paresthesia/anesthe geri Functional Assessment of ADLsLiving independently.; Able to bathe/groom without assistance.; 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 Prior Imaging:MRI; Lumbar MRI at [facility] Lumbar Surgery:none; Patient has upcoming appt at [facility] at 11/17/2024 Interventional Treatment History:Patient denies any past injection therapy. Physical Therapy:Facility: ([facility]); complete 5weeks; dates: (08/2024-09/2024); response to therapy: made pain/symptoms worse Current Analgesics:Hydrocod one/APAP effective Other Conservative Treatments:chiropra ctic treatments: not effective Prior Pain Management:no Oswestry Disability Index (GUS)Score/Date Completed: (78%) For Female Patients:Are you ? No CHEMA PEÑA MD [address] [place] [address], [phone], [facility] 11/08/2024 16:04:25 OBGyn Episode No OBEpisode recorded.
--- OUTSIDE RECORDS SUMMARY | 2024-12-01 11:33 | XMS_ITS | Encounter Summary ---
Author Organization Healthcare Address [address] [place] [address] Care Team Providers Care Public Policy Manager Name Role Phone Ana M Arceo APRN Primary Care Provider [phone] Claritza Blair APRN, DNP Unavailable [phone]- [phone] Encounter Details Date Type Department Care Team (Latest Contact Info) Description 11/17/2024 Travel Social History Tobacco Use Types Packs/Day Years [...] on file documented as of this encounter Visit Diagnoses Not on filedocumented in this encounter Additional Health Concerns Assessment Noted Time A fall risk assessment has been complete d for the patient 11/17/2024 10:24 AM EDT A Body Mass Index follow-up plan has been documented for the patient 11/17/2024 1:40 PM EDT documented as of this encounter Care Teams Public Policy Manager Relationship Specialty Start Date End Date Ana M Arceo APRN [address] [place] [address] PCP - General 11/17/24 Claritza Blair APRN, DNP [address] [place] [address] Nurse Practitioner Neurosurgery 11/17/24 documented as of this encounter
--- OUTSIDE RECORDS SUMMARY | 2024-12-01 11:33 | XMS_ITS | Continuity of Care Document ---
Author Organization [facility] Address [address] [place] [address] Care Team Providers Care Maintenance Data Analyst Name Role Phone SUZAN MANE Primary Care Provider [phone] SUZAN MANE Referring Provider Assessment Encounter Date [...] Medication Orders baclofen 5 mg tablet 2024 [facility], [address], [address], [place], [address], 11/08/2024 16:12:48 Tolectin 600 600 mg tablet 2024 [facility], [address] [place] [address] [address], [place], [place], [phone], 11/08/2024 16:11:48 Patient TargetsNo targets recorded. Patient Instructions Encounter Date Encounter Id Patient Instructions Last Modified By Organization Details Last Modified Time 11/08/2024 [id number] behavioral healt h screen* Not available 11/30/2024 07:43:33 Reason for Referral Physical Therapist Referral for Myofascial pain eval and treat lower back and mid back myofascial pain please include dry needling Referring Physician: Chema Peña, Pain Management, Encounter Date: 11/08/2024 Problems Name Problem SNOMED Code Status Onset Date Resolution Date Notes Provider Name and Address Organization Details Recorded Time Myofascial pain 015665782 Active [facility] 14:02:54 Chronic pain 35562308 Active [facility] 14:02:54 Problem Notes None recorded. Procedures Surgical History Date Name Laterality Status Provider Name and Address Organization Details Recorded Time tonsilectomy/brittany noids completed Claritza Redmond [facility] 11/08/2024 15:36:07 Hernia Repair completed Claritza Redmond [facility] 11/08/2024 15:36:22 uterus destructive procedure completed Claritza Redmond [facility] 11/08/2024 15:37:01 ligation of bilateral fallopian tubes completed Claritza Redmond [facility] 11/08/2024 15:37:25 Imaging Results None recorded. Procedure Notes None recorded. Medical Equipment None Reported. Allergies Allergen ID Allergen Name Allergen Category Reaction Reaction Severity Criticality Documentation Date Start Date Code Code System Note Provider Name and Address Organization Details Recorded Time 155047 codeine medicatio n Not available Not available Not available 11/08/2024 2670 RxNorm [facility] 15:32:37 559497 Substance with sulfonami de structure and antibacte rial mechanism of action (substanc e) medicatio n Not available Not available Not available 11/08/2024 50270 8003 SNOMED [facility] 15:32:42 Medications Name Sig Start Date Stop [...] Available Not Available Not Avai lable vitamin H53-kwmdf acid injection solution Take by injection route. [...] 2024 active Not Available Not Available Not Emily mueller Jornay PM 40 mg capsule,del ayed release,ext [...] Last Updated DateTime 165.1 cm 26.6 kg/m2 88042.7 8 g 98 % 98 % 99 /min 131 mm[Hg] 84 mm[Hg] Claritza Redmond [facility] 15:32:29 Social History Question Answer Notes LastModified by [employer] ion Details LastModified Time Tobacco Smoking Status Current Every Day Smoker Claritza park [facility] 11/08/2024 15:35:58 Do You Have An Advance Directive? No [email or web address] Information not available 11/08/2024 Do You Have A Medical Power Of Geothermal Installer? No [email or web address] Information not available 11/08/2024 What Is Your Relationship Status? Single [email or web address] Information not available 11/08/2024 How Much Tobacco Do You Smoke? 1 PPD Information not available 11/08/2024 Sex: Unknown Functional Status Question Answer Note LastModified by Organizat ion Details LastModified Time Do you use any illicit or recreational drugs? No [email or web address] Information not available 11/08/2024 What is your level of alcohol consumption? None [email or web address] Information not available 11/08/2024 Are you currently employed? Yes [email or web address] Information not available 11/08/2024 Are you able to walk? YESWOREST [email or web address] Information not available 11/08/2024 Mental Status None recorded. Family History Nothing Reported. Medical History Condition Response Bipolar Disease N Coronary Artery Disease N Seizure Disorder N Gout N Thyroid Disease N Atrial Fibrillation N Hernia N Head Trauma/Injury N COPD N Depression Y Anxiety Disorder N Acid Reflux (GERD) N Cancer N Skin Disorder N Stroke N High Cholesterol Y Liver Disease N Rheumatoid Arthritis N Fibromyalgia N Headaches N Autoimmune Disease N Kidney Disease N Osteoarthritis N Neurosurgery N DVT N Peptic Ulcer Disease N Anemia N Heart Attack ([place]) N Diabetes Y Cardiomyopathy N Bleeding Disorder [...] SNOMED-CT Code Diagnosis ICD10 Code Diagnosis Note [id number] CHEMA PEÑA MD [address],[facility] [address] [place] [address] 11/08/2024 14:33:37 11/08/2024 16:01:12 Chronic pain 45751480 G89.29 Myofascial pain 83523411 9 M79.18 I recommend physical therapy with dry needling and trial of baclofen/T olectin. Follow-up in 1 month for reassessme nt, she will bring her MRI disc to assess for Modic endplate change Health Concerns Section Related Observation LastModified by Organization Detai ls LastModified Time None Recorded Concern Status LastModified by Organization Details LastModified Time None Recorded Payers Encounter Date Sequence Insurance Name Policy Number Policy Mcdaniels Covered Member ID Mcdaniels Member ID Guarantor Name 11/08/2024 1 [employer] [facility] (MEDICAID HMO) Jessie Sloan [id number] Jessie Sloan Notes Date Note Type Note [...] to bathe/groom without assistance.; 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 Prior Imaging:MRI; Lumbar MRI at [facility] Lumbar Surgery:none; Patient has upcoming appt at [facility] at 11/17/2024 Interventional Treatment History:Patient denies any past injection therapy. Physical Therapy:Facility: ([facility]); complete 5weeks; dates: (08/2024-09/2024); response to therapy: made pain/symptoms worse Current Analgesics:Hydrocod one/APAP effective Other Conservative Treatments:chiropra ctic treatments: not effective Prior Pain Management:no Oswestry Disability Index (GUS)Score/Date Completed: (78%) For Female Patients:Are you ? No CHEMA PEÑA MD [address] [place] [address], [phone], [facility] 11/08/2024 16:04:25 OBGyn Episode No OBEpisode recorded.
--- OUTSIDE RECORDS SUMMARY | 2024-12-01 11:33 | XMS_ITS | Data Portability ---
Author Organization PATO BOYER [facility] & ROSALIND Freedman ADMIN Address [address] [place] [address] Care Team Providers Care Senior Mobile Developer Name Role Phone SUZAN MANE Referring Provider SUZAN MANE Primary Care Provider [phone] Assessment No assessment recorded. Plan of Treatment Reminders Order Date Submit Date Provider Last Modified By Organization Details Last Modified Time Details Appointments None recorded. Lab None recorded. Referral None recorded. Procedures None recorded. Surgeries None recorded. Imaging None recorded. Medication Orders pantoprazol e 40 mg tablet,mell yed release 2021 022 [facility], [address], [address], [place], [address], 10:41:37 Patient TargetsNo targets recorded. Patient InstructionsNo instructions recorded. Reason for Referral None Reported. Results Created Date Observation Date Name Description Value Unit Range Abnormal Flag Note LastModifiedBy Organization Detail LastModifiedTime Result Notes None recorded. Problems Name Problem SNOMED Code Status Onset Date Resolution Date Notes Provider Name and Address Organization Details Recorded Time Ring's esophagus 387602493 Active 022 PATO Austni [facility] & [place] 15:42:54 Problem Notes None recorded. Medical Equipment None Reported. Allergies Allergen ID Allergen Name Allergen Category Reaction Reaction Severity Criticality Documentation Date Start Date Code Code System Note Provider Name and Address Organization Details Recorded Time 85133 Substance with sulfonami de structure and antibacte rial mechanism of action (substanc e) medicatio n Not available Not available Not available 05/24/2022 58285 8003 SNOMED PATO Austin LPNT [facility] & [place] 2 10:08:17 93951 codeine medicatio n Not available Not available Not available 05/24/2022 2670 RxNorm PATO Austin LPNT - [place] & [place] 2 10:08:22 Medications Name Sig Start Date [...] Address Organization Details Last Updated DateTime 05/24/2022 15834.3 g 78 /min 128 mm[Hg] 80 mm[Hg] Samaraaddie Solo [place] - NT [facility] & [place] 05/24/2022 10:17:00 Social History None recorded. Functional [...] SNOMED-CT Code Diagnosis ICD10 Code Diagnosis Note [id number] Griselda Tamayo NP [facility] [address] [address] 05/24/2022 10:01:07 05/24/2022 10:31:45 Ring's esophagus 759313948 K22.70 - change omeprazole to pantoprazo le b.i.d.- EGD scheduled History of polyp of colon 881637519 Z86.010 History of colitis 45413 9006 Z87.19 - colonoscop y scheduled Health Concerns Section Related Observation LastModified by Organization Detai ls LastModified Time None Recorded Concern Status LastModified by Organization Details LastModified Time None Recorded Advance Directives Directive None Recorded Payers Insurance Date Sequence Insurance Name Policy Number Policy Mcdaniels Covered Member ID Mcdaniels Member ID Guarantor Name 06/10/2022 2 AETNA Jessie [facility] [id number] [facility] 06/10/2022 1 [employer] [facility] (MEDICAID HMO) [facility] [id number] Jessie [facility] 08/23/2022 1 [employer] [facility] (MEDICAID HMO) [facility] [id number] [facility] 06/10/2022 1 [facility] - AETNA (POS II) Jessie Sloan [id number] Jessie [facility] 05/24/2022 1 ERIC Roman Nathalia [id number] Jessie Sloan Notes Date Note Type Note Provider Name and Address Organization Details Recorded Time 05/24/2022 text/html patient is a 37-year-old female referred to our office by Dr. Edmar Storey. Patient was recently treated for colitis at [facility]. Reports abdominal pain has improved and diarrhea has resolved. Reports she did have some blood-tinged mucousy stool. 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 Her last EGD and colonoscopy was in November of 2020 at [facility]. Reports she also had history of colon polyps. Griselda Tamayo, [place] [address], [place], [address], [facility] [place] & [place] 05/24/2022 10:33:20 OBGyn Episode No OBEpisode recorded.
--- OUTSIDE RECORDS SUMMARY | 2024-12-01 11:33 | XMS_ITS | Encounter Summary ---
Author Organization Healthcare Address [address] [place] [address] Care Team Providers Care Melt House Supervisor Name Role Phone Ana M Arceo APRN Primary Care Provider [phone]- [phone] Claritza Blair APRN, DNP Unavailable +1- [phone] Encounter Details Date Type Department Care Team (Late st Contact Info) Description 09/28/2024 Orders Only External Location [address] [place] [address] Provider, External Social History Tobacco Use Types [...] Name Priority Date/Time Associated Diagnosis Comments MR THORACIC OUTSIDE IMAGES 09/28/2024 3:20 PM EDT documented in this encounter Results * MR THORACIC OUTSIDE IMAGES (09/28/2024 3:20 PM EDT) Anatomical Region Laterality Modality Magnetic Resonan ce 09/28/2024 3:20 PM EDT us External Provider IMG MRI PROCEDURES Final Resul t documented in this encounter Visit Diagnoses Not on filedocumented in this encounter Care Teams Melt House Supervisor Relationship Specialty Start Date End Date Ana M Arceo APRN [address] [place] [address] PCP - General 11/17/24 Claritza Blair, AD OPERATIONS SPECIALIST, DNP [address] [phone] Nurse Practitioner Neurosurgery 11/17/24 documented as of this encounter
== END 2024-11-30 23:59 | disposition home or self-care (01) ==
LOC: LAB.DROPOF 12-01 11:28
PROVIDERS: PCP Nurse Practitioner Family; Visit Provider Nurse Practitioner Family
DX: E83.10 Disorder of iron metabolism, unspecified (principal); E11.9 Type 2 diabetes mellitus without complications; E53.8 Deficiency of other specified B group vitamins; R79.89 Other specified abnormal findings of blood chemistry
CPT/HCPCS: 80053; 80061; 82306; 82607; 82728; 83036; 85025

== ENCOUNTER 2024-12-21 12:50 | Outpatient (CLI) | payer OTHER, SELFPAY ==
--- OUTSIDE RECORDS SUMMARY | 2024-11-17 10:50 | XMS_ITS | Encounter Summary ---
Author Organization [facility] Address [address] [place] [address] Care Team Providers Care Sign Writer Letterer Or Painter Name Role Phone Ana M Arceo VIRAJ Primary Care Provider +1- [phone] Claritza Blair APRN, DNP Unavailable +1- [phone] Reason for Referral * Consultation (Routine) - Authorized Specialty Diagnoses / Procedures Referred By Contac t Referred To Contact Pain Medicine Diagnoses Thoracic back pain Myofascial low back pain Facet arthritis of lumbar region DDD (degenerative disc disease), thoracic Claritza Blair APRN, DNP [address] [address] Phone: tel: fax: Referral ID Status Reason Start Date Expiration Date Visits Requested Visits Authorized [id number] Authorized Specialty Services Required 11/17/2024 05/19/2026 1 1 [facility] * Consultation (Routine) - Authorized Specialty Diagnoses / Procedures Referred By Contac t Referred To Contact Physical Therapy Diagnoses Thoracic back pain Myofascial low back pain Facet arthritis of lumbar region DDD (degenerative disc disease), thoracic Claritza Blair APRN, DNP [address] [address] Phone: tel: fax: Referral ID Status Reason Start Date Expiration Date Visits Requested Visits Authorized [id number] Authorized Consult and Treat 11/17/2024 05/19/2026 1 1 Reason for Visit * Consultation (Routine) - Closed Specialty Diagnoses / Procedures Referred By Gladys t Referred To Contact Neurosurgery Diagnoses Thoracic back pain Ana M Arceo APRN [address] [place] [address] Phone: tel: fax: [place] [address], [address] [place] [address] Phone: tel: fax: Referral ID Status Reason Start Date Expiration Date V isits Requested Visits Authorized [id number] Closed Specialty Services Required 10/28/2024 04/29/2026 1 1 Encounter Details Date Type Department Care Team (Late st Contact Info) Description 11/17/2024 10:50 AM EDT Consult [place] [address] [place] [address] Claritza Blair APRN, LALY [address] [facility] [address] [place] [address] Myofascial low back pain (Primary Dx); Thoracic back pain; Facet arthritis of lumbar region; DDD (degenerative disc disease), thoracic; Tobacco abuse counseling Social History Tobacco Use Types Packs/Day Years Used Date Smoking Tobacco: Every Day Cigarettes Smokeless Tobacco: Never Tobacco Cessation:Ready to Q uit: Not Asked; Counseling Given: Not Answered Alcohol Use Standard Drinks/Week Comments Never 0 (1 standard drink = 0.6 oz pur e alcohol) Comments Unknown Sex and Gender Information Value Date Recorded Sex Assigned at Not on file Legal Sex Female 8:54 PM EDT Gender Identity Not on file Sexual Orientation Not on file documented as of this encounter Last Filed Vital Signs Vital Sign Reading Time Taken Comments Blood Pressure 130/64 11/17/2024 10:35 AM EDT Pulse - - Temperature - - Respiratory Rate - - Oxygen Saturation - - Inhaled Oxygen Concentration - - Weight 82.5 kg (181 lb 14.1 oz) 025 10:35 AM EDT Height 165.1 cm (5' 5 ) 11/17/2024 10:3 5 AM EDT Body Mass Index 30.27 11/17/2024 10:35 AM EDT documented in this encounter Miscellaneous Notes * Progress Notes - Claritza Blair APRN, DNP - 11/17/2024 10:50 AM EDT Ana M Arceo APRN We had the pleasure of seeing your patient in our clinic today for Neurosurgical consultation. I personally reviewed approximately 11 pages of new patient referral paperwork that was sent to the clinic. Chief Complaint Mid back pain History Of Present Illness Jessie Sloan is a 39 y.o. female presenting with a history of chronic back pain. No specific injury, but notes symptoms have progressively worsened to be more severe over the past 4-5 months. She describes back pain throughout her back, cervical, thoracic, lumbar region with most of her pain in her low back. This includes bilateral paraspinal muscles in his fairly equal on right and left. Pain is described as tight, aching, intermittently sharp. She also has some occasional jerking of her lower extremities in his on ropinirole for restless leg. Numbness and tingling in her fingers and feet, but denies any paresthesias or radiculopathy otherwise. Denies weakness in the upper or lower extremities. Denies bowel or bladder incontinence. She did have 1 episode on this past Friday where she was walking with her dog in her left foot gave out causing a fall. Otherwise, no noted issues. This was an isolated event. Symptoms are worse with activity, better with hydrocodone and ibuprofen. Ofnote, she has a attempted to avoid hydrocodone and therefore has been taking excessive doses of ibuprofen. Rates pain today as a 10/10. Completed 2-3 visits of physical therapy about 2 months ago at [facility] [place] [facility] and [place], [place]. She did not have any benefit and therefore stopped. She used a 10s unit as well as heat and ice without significant improvement. Did not have any traction, dry needling, or cupping. She has not had any injections with interventional pain. Has tried multiple muscle relaxers including baclofen, methocarbamol, cyclobenzaprine all without benefit. She is currently taking hydrocodone 1 tablettwice a day, ibuprofen 800-1600 mg every 6 hours. She will also take high doses of Tylenol. Past medical history consistent for GERD, asthma, panic disorder, depression, ADD, diabetes with last A1c in May of 2024 6.8. Status post tubal ligation, cholecystectomy, tonsillectomy. She did have a heart catheterization earlier this year for angina, no blockages that required stenting. Smoker, 1 pack per day times 15+ years. No indicated family history of spine issues.. Past Medical History She has a past medical history of Depression, Diabetes mellitus (CMS/HCC), and Sciatica. Surgical History She has a past surgical history that includes Tonsillectomy; Hernia repair; and section, classic. Family History Family History[1] Social History She reports that she has been smoking cigarettes. She has never used smokeless tobacco. She reportsthat she does not drink alcohol and does not use drugs. Medications Current Medications[2] Allergies Codeine and Sulfa drugs Review of Systems 14 point review of systems was performed and was negative except as noted per HPI. Last Recorded Vitals Visit Vitals BP 130/64 Ht 1.651 m (5' 5 ) Wt 82.5 kg (181 lb 14.1 oz) BMI 30.27 kg/m?? Smoking Status Every Day BSA 1.95 m?? Physical Exam GEN: well developed, no acute distress, edentulous Head: normocephalic, atraumatic Eyes:EOMs intact Ears: normal auditory acuity PULM: no increased work of breathing, normal effort MSK: no joint swelling, normal range of motion SKIN: warm and dry, intact PSYCHE: normal mood and affect, appropriate historian Neuro Exam Strength 5/5 upper and lower extremities except 4/5 right coal picker Sensation intact throughout DTRs 2+ upper and lower extremities Nahid's positive on left Able to rise from chair without difficulty No gait instability Imaging I personally reviewed MRI of the thoracic spine completed 09/28/2024. Kyphotic alignment, not overly severe at any area. Central disc protrusion at T6-7 without significant central canal stenosis. Larger disc protrusion at T8-9 with indention of the thecal sac and mild mass effect on the cord, but nosignal change. No significant foraminal stenosis at any level. Personally reviewed MRI of the lumbar spine completed 09/28/2024. No significant degenerative changesthrough the discs. Good spinal alignment. Multilevel facet arthropathy without significant stenoticchanges. Personally reviewed scoliosis x-rays obtained today, 11/17/2024. Mild curvature through the thoracolumbar region as well as mild kyphosis through the thoracic region. Assessment and Plan Jessie Sloan is a 39 y.o. female presenting with chronic back pain worsening over the last 4-5months. Most of her symptoms are axial in nature. Also most likely has a component of facetogenic pain. No radiculopathy or signs of myelopathy. MRI imaging of the thoracic spine did reveal to disc protrusions, the 1 at T8-9 larger and with more mass effect on the cord, but no signal change. With current lack of symptoms and no significant spinal canal stenosis, no surgical intervention is required at this time. Provide red flag symptoms for which patient should contact clinic for further evaluation. In regards to the lumbar spine, no significant stenosis. Facet arthropathy was noted and could be a driver guide of her current symptoms. At this time, patient should maximize conservative management. She would re-attempt physical therapy to include traction, cupping, dry needling. Can also have benefit from interventional pain and was referred to see Dr. Mancilla at [facility] [place] [facility] for injection therapy including trigger point injections as well as epidural injections and facet blocks. No indicated need for neurosurgical follow up at this time, but can contact the clinic with questions, concerns, development of red flag symptoms. Discussed the effects of nicotine use, including cigarettes, vaping, chew, and other forms, on overall health as well as back health and its contribution to pain. Recommended nicotine cessation and this counseling session lasted approximately 3-5 minutes. Also provided education on dangers of using excessive amounts of NSAIDs and acetaminophen in regards to Gi symptoms,. kidney function and liver function. Advised on more proper dosing with verbalizedunderstanding. Also encouraged her to follow up with her PCP regarding glycemic control as she doesnot check it regularly and regarding kidney function. Assessment/Plan Problem List Items Addressed This Visit None Visit Diagnoses Myofascial low back pain - Primary Relevant Orders Ambulatory referral to Physical Therapy Ambulatory referral to Pain Medicine Thoracic back pain Relevant Orders XR Scoliosis Entire Spine 2 or 3 Views (Completed) Ambulatory referral to Physical Therapy Ambulatory referral to Pain Medicine Facet arthritis of lumbar region Relevant Orders Ambulatory referral to Physical Therapy Ambulatory referral to Pain Medicine DDD (degenerative disc disease), thoracic Relevant Orders Ambulatory referral to Physical Therapy Ambulatory referral to Pain Medicine Tobacco abuse counseling Claritza Blair APRN [facility] Department of Neurosurgery Thank you for allowing us to be a part of your patient's care. Please do not hesitate to contact usat [facility] if there are any questions or concerns. This note was dictated using voice to text software and may contain minor errors. [1] History reviewed. No pertinent family history. [2] Current Outpatient Medications Medication Sig Dispense Refill B-D 3CC LUER-FABIAN SYR 25GX1 25G X 1 3 ML misc cetirizine (ZyrTEC) 10 MG tablet cholecalciferol (Vitamin D-3) 125 MCG (5000 UT) capsule daily. Cosentyx UnoReady 300 MG/2ML auto-injector pen cyanocobalamin (Vitamin B-12) 1000 MCG/ML injection empagliflozin (Jardiance) 25 MG 1 tablet. HYDROcodone-acetaminophen ([place]) 5-325 MG tablet ibuprofen 800 MG tablet 1 tablet. Jornay PM 80 MG capsule sustained-release 24 hr metoprolol succinate XL (Toprol-XL) 25 MG 24 hr tablet 1 tablet. omeprazole (PriLOSEC) [address] capsule 1 capsule. promethazine (Phenergan) 25 MG tablet rOPINIRole (Requip) 0.25 MG tablet rosuvastatin (Crestor) 10 MG tablet venlafaxine XR (Effexor-XR) 150 MG 24 hr capsule No current facility-administered medications for this visit. documented in this encounter Plan of Treatment Scheduled Referrals Name Type Priority Associated Diagnoses Order Schedule Ambulatory referral to Physical Therapy Outpatient Referral Routine Thoracic back pain Myofascial low back pain Facet arthritis of lumbar region DDD (degenerative disc disease), thoracic 1 Occurrences starting 11/17/2024 until 05/20/2026 Ambulatory referral to Pain Medicine Outpatient Referral Routine Thoracic back pain Myofascial low back pain Facet arthritis of lumbar region DDD (degenerative disc disease), thoracic Expected: 11/17/2024 (Approximate), Expires: 05/20/2026 documented as of this encounter Results * XR Scoliosis Entire Spine 2 or 3 Views (11/17/2024 11:59 AM EDT) Anatomical Region Laterality Modality Spine Digital Radiogra phy Impressions 11/17/2024 12:38 PM EDT Degenerative changes as described. Minimal wedging of lower thoracic spine vertebral bodies CRITICAL RESULT: No. COMMUNICATION: Per this written report. Drafted by Ajay Landis MD on 11/17/2024 12:34 PM Final report signed by Ajay Landis MD on 11/17/2024 12:38 PM Narrative 11/17/2024 12:38 PM EDT CLINICAL INDICATION: back pain TECHNIQUE: XR SCOLIOSIS ENTIRE SPINE 2 OR 3 VIEWS COMPARISON: Outside MRI 09/28/2024, similar to prior. FINDINGS: Right lower lung calcified granuloma. Slight dextrocurvature of the upper thoracic spine. Overlying stool, soft tissue, bowel gas limits evaluation of the lumbar spine and pelvis. Clips and fasteners are seen in the pelvis and abdomen. Levocurvature of the lumbar spine. Straightening of lumbar lordosis. Mild to moderate mid and lower thoracic spine disc space narrowing and anterior osteophytosis. Minimal wedging of T7-T10 vertebral bodies. Minimal L4-5 anterolisthesis. Mild L1-2 and L2-3 disc space narrowing. T11 and T12 superior endplate irregularity consistent with Schmorl's node. Procedure Note Ajay Landis MD - 11/17/2024 CLINICAL INDICATION: back pain TECHNIQUE: XR SCOLIOSIS ENTIRE SPINE 2 OR 3 VIEWS COMPARISON: Outside MRI 09/28/2024, similar to prior. FINDINGS: Right lower lung calcified granuloma. Slight dextrocurvature of the upperthoracic spine. Overlying stool, soft tissue, bowel gas limits evaluationof the lumbar spine and pelvis. Clips and fasteners are seen in the pelvisand abdomen. Levocurvature of the lumbar spine. Straightening of lumbarlordosis. Mild to moderate mid and lower thoracic spine disc spacenarrowing and anterior osteophytosis. Minimal wedging of T7-T10 vertebralbodies. Minimal L4-5 anterolisthesis. Mild L1-2 and L2-3 disc spacenarrowing. T11 and T12 superior endplate irregularity consistent withSchmorl's node. IMPRESSION: Degenerative changes as described. Minimal wedging of lower thoracic spinevertebral bodies CRITICAL RESULT: No. COMMUNICATION: Per this written report. Drafted by Ajay Landis MD on 11/17/2024 12:34 PM Final report signed by Ajay Landis MD on 11/17/2024 12:38 PM Claritza Blair APRN, DNP IMG XR PROCEDURES Fi nal Result documented in this encounter Visit Diagnoses Diagnosis Myofascial low back pain- Primary Thoracic back pain Pain in thoracic spine Facet arthritis of lumbar region DDD (degenerative disc disease), thoracic Degeneration of thoracic or thoracolumbar intervertebral disc Tobacco abuse counseling Thoracic back pain Pain in thoracic spine documented in this encounter Additional Health Concerns Assessment Noted Time A fall risk assessment has been complete d for the patient 11/17/2024 10:24 AM EDT A Body Mass Index follow-up plan has been documented for the patient 11/17/2024 1:40 PM EDT documented as of this encounter Care Teams Sign Writer Letterer Or Painter Relationship Specialty Start Date End Date Ana M Arceo APRN [address] [place] [address] PCP - General 11/17/24 Claritza Blair APRN, LALY [address] [facility] [address] [place] [address] Nurse Practitioner Neurosurgery 11/17/24 documented as of this encounter
--- OUTSIDE RECORDS SUMMARY | 2024-11-17 11:31 | XMS_ITS | Encounter Summary ---
Author Organization Healthcare Address [address] [place] [address] Care Team Providers Care Ladle Repairman Name Role Phone ArceoAna M guerrero Oz CALI Primary Care Provider +1- [phone] Claritza Blair APRN, DNP Unavailable +1- [phone] Encounter Details Date Type Department Care Team (Latest Contact Info) Description 11/17/2024 11:31 AM EDT - 11/17/2024 11:59 PM EDT [facility] [address], [address] [place] [address] Thoracic back pain Discharge Disposition: Home or [...] (Jardiance) 25 MG 1 tablet. HYDROcodone-acetam inophen ([place]) 5-325 MG tablet 10/19/2024 ibuprofen 800 MG [...] documented as of this encounter Care Teams Ladle Repairman Relationship Specialty Start Date End Date Ana M Arceo APRN [address] [place] [address] PCP - General 11/17/24 Claritza Blair APRN, DNP [address] [place] [address] Nurse Practitioner Neurosurgery 11/17/24 documented as of this encounter
--- OUTSIDE RECORDS SUMMARY | 2024-12-23 12:58 | XMS_ITS | Data Portability ---
Author Organization [facility] Address [address] [facility] [address] [place] [address] Care Team Providers Care Smoking Pipes Cleaner Name Role Phone SUZAN MANE Primary Care Provider SUZAN MANE Referring Provider [phone] Assessment Encounter Date Assessment Date Assessment LastModified [...] Appointments None recorded. Lab None recorded. Referral physical therapist referral - eval and treat lower back and mid back myofascial pain please include dry needling 2024 025 Not available 16:06:22 Procedures remote therapeutic monitoring to monitor musculoskel etal system (PROC) 2024 Not available 16:04:21 Surgeries None recorded. Imaging None recorded. Medication Orders baclofen 5 mg tablet 2024 [facility], [address], [address], [place], [address], 16:12:[address] To[address] [facility], [address], [place], [place], [id number], 16:11:48 Patient TargetsNo targets recorded. Patient Instructions Encounter Date Encounter Id Patient Instructions Last Modified By Organization Details Last Modified Time 11/08/2024 [id number] behavioral healt h screen* [email or web address] Not available 11/30/2024 07:43:33 Reason for Referral Physical Therapist Referral for Myofascial pain eval and treat lower back and mid back myofascial pain please include dry needling Referring Physician: Chema Peña, Pain Management, Encounter Date: 11/08/2024 Problems Name Problem SNOMED Code Status Onset Date Resolution Date Notes Provider Name and Address Organization Details Recorded Time Myofascial pain 270571694 Active [facility] PATO Helm [facility] 14:02:54 Chronic pain 53072072 Active [facility] PATO Helm [facility] 14:02:54 Problem Notes None recorded. Procedures Surgical History Date Name Laterality Status Provider Name and Address Organization Details Recorded Time tonsilectomy/brittany noids completed Claritza Redmond [facility] 11/08/2024 15:36:07 Hernia Repair completed Claritza Redmond [facility] 11/08/2024 15:36:22 uterus destructive procedure completed Clraitza Redmond [facility] 11/08/2024 15:37:01 ligation of bilateral fallopian tubes completed Claritza Redmond [facility] 11/08/2024 15:37:25 Imaging Results None recorded. Procedure Notes None recorded. Medical Equipment None Reported. Allergies Allergen ID Allergen Name Allergen Category Reaction Reaction Severity Criticality Documentation Date Start Date Code Code System Note Provider Name and Address Organization Details Recorded Time 896768 codeine medicatio n Not available Not available Not available 11/08/2024 2670 [facility] 15:32:37 078175 Substance with sulfonami de structure and antibacte rial mechanism of action (substanc e) medicatio n Not available Not available Not available 11/08/2024 66976 8003 SNOMED [facility] 15:32:42 Medications Name Sig Start Date Stop [...] Available Not Available No t Available baclofen 10 mg tablet TAKE 1/2 TABLET (5MG) BY MOUTH TWICE DAILY DIRECTED active Not Available Not Available No t Available Tolectin 600 600 mg tablet Take 1 tablet 3 times a day by oral route as directed for 30 days. 2024 active Not Available Not Available Not Avai lable vitamin M72-lksqx acid injection solution Take by injection route. [...] sprinkle TAKE ONE CAPSULE BY MOUTH EVERY DAY AT BEDTIME active Not Available Not Available No t Available Vitals Date Recorded Body height Body mass index (BMI) Body weight Oxygen saturation Oxygen saturation in Arterial blood by Pulse oximetry Heart rate Systolic And Diastolic Provider Name and Address Organization Details Last Updated DateTime 165.1 cm 26.6 kg/m2 05805.7 8 g 98 % 98 % 99 /min 131/84 mm[Hg] Claritza Redmond [facility] 15:32:29 Social History Question Answer Notes LastModified by eDosseaizat ion Details LastModified Time Tobacco Smoking Status Current Every Day Smoker Claritza park [facility] 11/08/2024 15:35:58 Do You Have An Advance Directive? No [email or web address] Information not available 11/08/2024 Do You Have A Medical Power Of Medicare Nurse? No [email or web address] Information not available 11/08/2024 What Is Your Relationship Status? Single Information not available 11/08/2024 How Much Tobacco Do You Smoke? 1 PPD [email or web address] Information not available 11/08/2024 Sex: Unknown Functional Status Question Answer Note LastModified by Organizat ion Details LastModified Time Do you use any illicit or recreational drugs? No [email or web address] Information not available 11/08/2024 What is your level of alcohol consumption? None [email or web address] Information not available 11/08/2024 Are you currently employed? Yes Information not available 11/08/2024 Are you able to walk? YESWOREST [email or web address] Information not available 11/08/2024 Mental Status None recorded. Family History Nothing Reported. Medical History Condition Response Bipolar Disease N Coronary Artery Disease N Seizure Disorder N Gout N Thyroid Disease N Atrial Fibrillation N Head Trauma/Injury N Hernia N Depression Y COPD N Anxiety Disorder N Acid Reflux (GERD) N Cancer N Stroke N Skin Disorder N High Cholesterol Y Liver Disease N Rheumatoid Arthritis N Fibromyalgia N Headaches N Kidney Disease N Autoimmune Disease N Osteoarthritis N Neurosurgery N DVT N Peptic Ulcer Disease N Anemia N Heart Attack ([place]) N Diabetes Y Cardiomyopathy N Bleeding Disorder [...] SNOMED-CT Code Diagnosis ICD10 Code Diagnosis Note [id number] CHEMA PEÑA MD [place] [address] [facility] [address] [address] ,[facility] [address] [place] [address] 11/08/2024 14:33:37 11/08/2024 16:01:12 Chronic pain 57400339 G89.29 Myofascial pain 42107544 9 M79.18 I recommend physical therapy with [...] Member ID Mcdaniels Member ID Guarantor Name 12/07/2024 1 AETNA [facility] (MEDICAID HMO) Jessie Sloan [id number] Jessie Sloan Notes Date Note Type Note [...] to bathe/groom without assistance.; 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 Prior Imaging:MRI; Lumbar MRI at [facility] Lumbar Surgery:none; Patient has upcoming appt at [facility] at 11/17/2024 Interventional Treatment History:Patient denies any past injection therapy. Physical Therapy:Facility: ([facility]); complete 5weeks; dates: (08/2024-09/2024); response to therapy: made pain/symptoms worse Current Analgesics:Hydrocod one/APAP effective Other Conservative Treatments:chiropra ctic treatments: not effective Prior Pain Management:no Oswestry Disability Index (GUS)Score/Date Completed: (78%) For Female Patients:Are you ? No CHEMA PEÑA MD [address] [place] [address], [phone], [facility] 11/08/2024 16:04:25 OBGyn Episode No OBEpisode recorded.
--- OUTSIDE RECORDS SUMMARY | 2024-12-23 12:58 | XMS_ITS | Continuity of Care Document ---
Author Organization [facility] Address [address] [place] [address] Care Team Providers Care Palletizer Operator Name Role Phone SUZAN MANE Primary Care Provider SUZAN MANE Referring Provider Assessment Encounter Date [...] Medication Orders baclofen 5 mg tablet 2024 [facility], [address], [address], [place], [address], 16:12:48 Tolectin 600 600 mg tablet 2024 [facility], [address], [place], [place], [id number], 16:11:48 Patient TargetsNo targets recorded. Patient Instructions Encounter Date Encounter Id Patient Instructions Last Modified By Organization Details Last Modified Time 11/08/2024 [id number] behavioral healt h screen* Not available 11/30/2024 07:43:33 Reason for Referral Physical Therapist Referral for Myofascial pain eval and treat lower back and mid back myofascial pain please include dry needling Referring Physician: Chema Peña, Pain Management, Encounter Date: 11/08/2024 Problems Name Problem SNOMED Code Status Onset Date Resolution Date Notes Provider Name and Address Organization Details Recorded Time Myofascial pain 849700286 Active [facility] PATO Helm [facility] 14:02:54 Chronic pain 51861724 Active [facility] PATO Helm [facility] 14:02:54 Problem Notes None recorded. Procedures Surgical History Date Name Laterality Status Provider Name and Address Organization Details Recorded Time tonsilectomy/brittany noids completed Claritza Redmond [facility] 11/08/2024 15:36:07 Hernia Repair completed Claritza Redmond [facility] 11/08/2024 15:36:22 uterus destructive procedure completed Claritza Redmond [facility] 11/08/2024 15:37:01 ligation of bilateral fallopian tubes completed Claritza Redmond [facility] 11/08/2024 15:37:25 Imaging Results None recorded. Procedure Notes None recorded. Medical Equipment None Reported. Allergies Allergen ID Allergen Name Allergen Category Reaction Reaction Severity Criticality Documentation Date Start Date Code Code System Note Provider Name and Address Organization Details Recorded Time 694161 codeine medicatio n Not available Not available Not available 11/08/2024 2670 [facility] 15:32:37 612236 Substance with sulfonami de structure and antibacte rial mechanism of action (substanc e) medicatio n Not available Not available Not available 11/08/2024 23914 8003 SNOMED [facility] 15:32:42 Medications Name Sig Start Date Stop [...] Available Not Available Not Avai lable vitamin R11-oxssb acid injection solution Take by injection route. [...] Last Updated DateTime 165.1 cm 26.6 kg/m2 93407.7 8 g 98 % 98 % 99 /min 131/84 mm[Hg] Claritza Redmond [facility] 15:32:29 Social History Question Answer Notes LastModified by HangIt ion Details LastModified Time Tobacco Smoking Status Current Every Day Smoker Claritza park [facility] 11/08/2024 15:35:58 Do You Have An Advance Directive? No [email or web address] Information not available 11/08/2024 Do You Have A Medical Power Of Cane Packer? No [email or web address] Information not available 11/08/2024 What Is Your Relationship Status? Single [email or web address] Information not available 11/08/2024 How Much Tobacco Do You Smoke? 1 PPD [email or web address] Information not available 11/08/2024 Sex: Unknown Functional Status Question Answer Note LastModified by Organizat ion Details LastModified Time Do you use any illicit or recreational drugs? No [email or web address] Information not available 11/08/2024 What is your level of alcohol consumption? None Information not available 11/08/2024 Are you currently employed? Yes [email or web address] Information not available 11/08/2024 Are you able to walk? YESWOREST [email or web address] Information not available 11/08/2024 Mental Status None recorded. Family History Nothing Reported. Medical History Condition Response Bipolar Disease N Coronary Artery Disease N Seizure Disorder N Gout N Atrial Fibrillation N Thyroid Disease N Hernia N Head Trauma/Injury N COPD N Depression Y Anxiety Disorder N Acid Reflux (GERD) N Cancer N Stroke N Skin Disorder N High Cholesterol Y Liver Disease N Rheumatoid Arthritis N Headaches N Fibromyalgia N Kidney Disease N Autoimmune Disease N Osteoarthritis N Neurosurgery N DVT N Peptic Ulcer Disease N Anemia N Heart Attack ([place]) N Diabetes Y Cardiomyopathy N Bleeding Disorder [...] SNOMED-CT Code Diagnosis ICD10 Code Diagnosis Note [id number] CHEMA PEÑA MD [address],[facility] [address] [place] [address] 11/08/2024 14:33:37 11/08/2024 16:01:12 Chronic pain 70527869 G89.29 Myofascial pain 77588831 9 M79.18 I recommend physical therapy with [...] Member ID Guarantor Name 11/08/2024 1 AETNA [facility] (MEDICAID HMO) Jessie Sloan [id number] Jessie Sloan Notes Date Note Type Note [...] to bathe/groom without assistance.; 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 Prior Imaging:MRI; Lumbar MRI at [facility] Lumbar Surgery:none; Patient has upcoming appt at [facility] at 11/17/2024 Interventional Treatment History:Patient denies any past injection therapy. Physical Therapy:Facility: ([facility]); complete 5weeks; dates: (08/2024-09/2024); response to therapy: made pain/symptoms worse Current Analgesics:Hydrocod one/APAP effective Other Conservative Treatments:chiropra ctic treatments: not effective Prior Pain Management:no Oswestry Disability Index (GUS)Score/Date Completed: (78%) For Female Patients:Are you ? No CHEMA PEÑA MD [address] [place] [address], [phone], [facility] 11/08/2024 16:04:25 OBGyn Episode No OBEpisode recorded.
--- OUTSIDE RECORDS SUMMARY | 2024-12-23 12:58 | XMS_ITS | Data Portability ---
Author Organization [facility] ROSALIND Freedman ADMIN Address [address] [place] [address] Care Team Providers Care Belt Fixer Name Role Phone SUZAN MANE Referring Provider [phone] SUZAN MANE Primary Care Provider Assessment No assessment recorded. Plan of Treatment Reminders Order Date Submit Date Provider Last Modified By Organization Details Last Modified Time Details Appointments None recorded. Lab None recorded. Referral None recorded. Procedures None recorded. Surgeries None recorded. Imaging None recorded. Medication Orders pantoprazol e 40 mg tablet,mell yed release 2021 022 [facility], [address] [place] [address], [address], [place], [address], 10:41:37 Patient TargetsNo targets recorded. Patient InstructionsNo instructions recorded. Reason for Referral None Reported. Results Created Date Observation Date Name Description Value Unit Range Abnormal Flag Note LastModifiedBy Organization Detail LastModifiedTime Result Notes None recorded. Problems Name Problem SNOMED Code Status Onset Date Resolution Date Notes Provider Name and Address Organization Details Recorded Time Ring's esophagus 809360611 Active 022 [address] [facility] & [place] 15:42:54 Problem Notes None recorded. Medical Equipment None Reported. Allergies Allergen ID Allergen Name Allergen Category Reaction Reaction Severity Criticality Documentation Date Start Date Code Code System Note Provider Name and Address Organization Details Recorded Time 33412 Substance with sulfonami de structure and antibacte rial mechanism of action (substanc e) medicatio n Not available Not available Not available 05/24/2022 74459 8003 SNOMED PAT[facility] [place] 2 10:08:17 15386 codeine medicatio n Not available Not available Not available 05/24/2022 2670 RxNorm PATO [facility] [place] 2 10:08:22 Medications Name Sig Start Date [...] Available Not Available cefdinir 300 mg capsule 12/02 /2022 completed Not Available Not Available Not Available [...] Date Recorded Body weight Heart rate Systolic And Diastolic Provider Name and Address Organization Details Last Updated DateTime 05/24/2022 25368.3 g 78 /min 128/80 mm[Hg] Sam[facility]addie Solo [place] [facility] [place] 05/24/2022 10:17:00 Social History None recorded. Functional [...] SNOMED-CT Code Diagnosis ICD10 Code Diagnosis Note [id number] Griselda Tamayo NP [facility] [address] [address] 05/24/2022 10:01:07 05/24/2022 10:31:45 Ring's esophagus 119354924 K22.70 - change omeprazole to pantoprazo le b.i.d.- EGD scheduled History of polyp of colon 130394332 Z86.010 History of colitis 56374 9006 Z87.19 - colonoscop y scheduled Health Concerns Section Related Observation LastModified by Organization Detai ls LastModified Time None Recorded Concern Status LastModified by Organization Details LastModified Time None Recorded Advance Directives Directive None Recorded Payers Insurance Date Sequence Insurance Name Policy Number Policy Mcdaniels Covered Member ID [id number] Member ID Guarantor Name 06/10/2022 2 AETNA [facility] [id number] [facility] 06/10/2022 1 AETNA BETTER [facility] (MEDICAID HMO) [facility] [id number] Jessie [facility] 08/23/2022 1 AETNA BETTER [facility] (MEDICAID HMO) [facility] [id number] [facility] 06/10/2022 1 [facility] - AETNA (POS II) Jessie Sloan [id number] Jessie [facility] 05/24/2022 1 ERIC Roman Nathalia [id number] Jessie Sloan Notes Date Note Type Note Provider Name and Address Organization Details Recorded Time 05/24/2022 text/html patient is a 37-year-old female referred to our office by Dr. Edmar Storey. Patient was recently treated for colitis at [facility]. Reports abdominal pain has improved and diarrhea has resolved. Reports she did have some blood-tinged mucousy stool. 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 Her last EGD and colonoscopy was in November of 2020 at [facility]. Reports she also had history of colon polyps. Griselda Tamayo, BRYANT [address] [facility], [place], [address], [facility] [place] & [place] 05/24/2022 10:33:20 OBGyn Episode No OBEpisode recorded.
--- OUTSIDE RECORDS SUMMARY | 2024-12-23 12:58 | XMS_ITS | Encounter Summary ---
Author Organization Healthcare Address [address] [place] [address] Care Team Providers Care Financial Sales Associate Name Role Phone Ana M Arceo APRN Primary Care Provider +1- [phone] Claritza Blair APRN, DNP Unavailable +1- [phone] Encounter Details Date Type Department Care Team (Late st Contact Info) Description 09/28/2024 Orders Only External Location [address] [place] [address] Provider, External Social History Tobacco Use Types [...] on filedocumented in this encounter Care Teams Financial Sales Associate Relationship Specialty Start Date End Date Ana M Arceo APRN [address] [place] [address] PCP - General 11/17/24 Claritza Blair, ECONOMICS ANALYST, DNP [address] [phone] Nurse Practitioner Neurosurgery 11/17/24 documented as of this encounter
--- OUTSIDE RECORDS SUMMARY | 2024-12-23 12:58 | XMS_ITS | Encounter Summary ---
Author Organization Healthcare Address [address] [place] [address] Care Team Providers Care Master Sheet Clerk Name Role Phone Ana M Arceo APRN Primary Care Provider +1- [phone] Claritza Blair APRN, DNP Unavailable +1- [phone] Encounter Details Date Type Department Care Team (Late st Contact Info) Description 09/28/2024 Orders Only External Location [address] [place] [address] Provider, External Social History Tobacco Use Types [...] on filedocumented in this encounter Care Teams Master Sheet Clerk Relationship Specialty Start Date End Date Ana M Arceo APRN [address] [place] [address] PCP - General 11/17/24 Claritza Blair, GAME FARM SUPERVISOR, DNP [address] [phone] Nurse Practitioner Neurosurgery 11/17/24 documented as of this encounter
--- OUTSIDE RECORDS SUMMARY | 2024-12-23 12:58 | XMS_ITS | Encounter Summary ---
Author Organization Healthcare Address [address] [place] [address] Care Team Providers Care Supervisor Pyrotechnic Loading Name Role Phone Ana M Arceo Oz PLANNING ASSOCIATE Primary Care Provider +1- [phone] Claritza Blair PLANNING ASSOCIATE, DNP Unavailable +1- [phone] Encounter Details Date Type Department Care Team (Late st Contact Info) Description 12/10/2024 Telephone [facility] [address] [place] [address] Claritza Blair, PLANNING ASSOCIATE, DNP [address] [place] [address] Social History Tobacco Use Types Packs/Day Years [...] on file documented as of this encounter Miscellaneous Notes * Telephone Encounter - Nelly Adam RN - 12/10/2024 2:39 PM EDT OV notes rightfaxed to number below. * Telephone Encounter - Isidra Pedro - 12/10/2024 2:32 PM EDT Patient Phone Message Reason for Call: PCP office calling requesting ov notes from consult please fax to [phone] Best contact number and optimal time of day to reach caller: Edel [phone] Note: Please do not reply to this message. Follow-up communication and further actions as a result of this message need to be communicated with the patient directly, if the patient is not active onMyChart. If the patient is active on MyChart, they will receive notification of the communication/outcome via [employer]. documented in this encounter Plan of Treatment Not on [...] documented as of this encounter Care Teams Supervisor Pyrotechnic Loading Relationship Specialty Start Date End Date Ana M Arceo APRN [address] [place] [address] PCP - General 11/17/24 Claritza Blair APRN, DNP [address] [facility] [address] [place] [address] Nurse Practitioner Neurosurgery 11/17/24 documented as of this encounter
--- OUTSIDE RECORDS SUMMARY | 2024-12-23 12:58 | XMS_ITS | Encounter Summary ---
Author Organization Healthcare Address [address] [place] [address] Care Team Providers Care Special Investigator Name Role Phone Ana M Arceo APRN Primary Care Provider +1- [phone] Claritza Blair APRN, DNP Unavailable +1- [phone] Encounter Details Date Type Department Care Team [...] documented as of this encounter Care Teams Special Investigator Relationship Specialty Start Date End Date Ana M Arceo APRN [address] [place] [address] PCP - General 11/17/24 Claritza Blair APRN, DNP [address] [place] [address] Nurse Practitioner Neurosurgery 11/17/24 documented as of this encounter
--- OUTSIDE RECORDS SUMMARY | 2024-12-23 12:58 | XMS_ITS | Clinical Summary ---
Author Organization [facility] Address [address] [place] [address] Care Team Providers Care Furniture Removalist Name Role Phone ArceoAna M guerrero Oz ELEVATOR OPERATOR SERVICE Primary Care Provider +1- [phone] Claritza Blair APRN, DNP Unavailable +1- [phone] Allergies Active Allergy Reactions Criticality Noted Date Comments Codeine Nausea And Vomiting Low 09/07/2024 Sulfa Drugs Nausea And Vomiting Low 09/07/2024 Medications cetirizine (ZyrTEC) 10 MG tablet 12/15/2023 Active cholecalciferol (Vitamin D-3) 125 MCG (5000 UT) capsule daily. Active cyanocobalamin (Vitamin B-12) 1000 MCG/ML injection 05/10/2024 Active empagliflozin (Jardiance) 25 MG 1 tablet. Active HYDROcodone-acet aminophen (Coden) 5-325 MG tablet 10/19/2024 Active ibuprofen 800 [...] Encounters Date Type Department Care Team Description 12/10/[address] [place] [address] Claritza Blair APRN, LALY 11/17/2024 11:31 AM EDT - 11/17/2024 11:59 PM EDT Hospital Encounter [facility] Radiology [address] [facility], [address] [place] [address] Thoracic back pain Discharge Disposition: Home or Self Care 11/17/2024 10:50 AM EDT Consult [address] [place] [address] Claritza Blair, ELEVATOR OPERATOR SERVICE, DNP Myofascial low back pain (Primary Dx); Thoracic back pain; Facet arthritis of lumbar region; DDD (degenerative disc disease), thoracic; Tobacco abuse counseling 11/17/2024 Travel 09/28/2024 Orders Only External Location [address] [place] [phone] Provider, External 09/28/2024 Orders Only External Location [address] [place] [phone] Provider, External from Last 3 Months Social [...] [facility]-HIV Screening 1984 [facility]-Hepatitis C Screening 1984 [facility]-Infant/Child/Adol SDOH Screenings 1984 Diabetes: Dental Exam 01/13/1994 [...] 01/13/2005 [facility]-Cervical Cancer Screening 01/13/2014 [facility]-HPV/Cotest 01/13/2014 [id number] Vaccine (1 - 20 24-25 season) 2024 [facility]-Influenza Vaccine (#1) 2025 [facility]-Zoster Vaccines (1 of 2) 01/13/2034 [...] on 11/17/2024 12:38 PM Claritza Blair APRN, LALY IMG XR PROCEDURES [...] t from Last 3 Months Insurance AETNA [facility] MEDICAID Care Teams Furniture Removalist Relationship Specialty Start Date End Date Ana M Arceo APRN [address] [place], [place] [id number] PCP - General 11/17/24 Claritza Blair APRN, DNP [address] [place] [phone] Nurse Practitioner Neurosurgery 11/17/24
== END 2024-12-21 23:59 | disposition home or self-care (01) ==
LOC: LAB.DROPOF 12-23 12:51
PROVIDERS: PCP Nurse Practitioner Family; Visit Provider Nurse Practitioner Family
DX: N39.0 Urinary tract infection, site not specified (principal)
CPT/HCPCS: 87086

== ENCOUNTER 2024-12-29 09:04 | Outpatient (POV) | payer OTHER, SELFPAY ==
--- OUTSIDE RECORDS SUMMARY | 2024-11-17 10:50 | XMS_ITS | Encounter Summary ---
Author Organization [facility] Address [address] [place] [id number] Care Team Providers Care Principal Hardware Architect Name Role Phone Ana M Arceo VIRAJ Primary Care Provider +1- [phone] Claritza Blair APRN, DNP Unavailable +1- [phone] Reason for Referral * Consultation (Routine) - Authorized Specialty Diagnoses / Procedures Referred By Contac t Referred To Contact Pain Medicine Diagnoses Thoracic back pain Myofascial low back pain Facet arthritis of lumbar region DDD (degenerative disc disease), thoracic Claritza Blair APRN, DNP [address] [address] Phone: tel: fax: Referral ID Status Reason Start Date Expiration Date Visits Requested Visits Authorized [id number] Authorized Specialty Services Required 11/17/2024 05/19/2026 1 1 [facility] * Consultation (Routine) - Authorized Specialty Diagnoses / Procedures Referred By Contac t Referred To Contact Physical Therapy Diagnoses Thoracic back pain Myofascial low back pain Facet arthritis of lumbar region DDD (degenerative disc disease), thoracic Claritza Blair APRN, DNP [address] [address] Phone: tel: fax: Referral ID Status Reason Start Date Expiration Date Visits Requested Visits Authorized [id number] Authorized Consult and Treat 11/17/2024 05/19/2026 1 1 Reason for Visit * Consultation (Routine) - Closed Specialty Diagnoses / Procedures Referred By Gladys t Referred To Contact Neurosurgery Diagnoses Thoracic back pain Ana M Arceo APRN [address] [place] [address] Phone: tel: fax: [place] [address] [place] [address] Phone: tel: fax: Referral ID Status Reason Start Date Expiration Date V isits Requested Visits Authorized [id number] Closed Specialty Services Required 10/28/2024 04/29/2026 1 1 Encounter Details Date Type Department Care Team (Late st Contact Info) Description 11/17/2024 10:50 AM EDT Consult [place] [address] [place] [address] Claritza Blair APRN, LALY [address] [facility] [address] [place] [address] Myofascial low back pain (Primary [...] - 11/17/2024 10:50 AM EDT Ana M rAceo APRN We had the pleasure of seeing [...] physical therapy about 2 months ago at [facility] and [place], [place]. She did not have any benefit [...] upper and lower extremities except 4/5 right soap press feeder Sensation intact throughout DTRs 2+ upper and [...] was noted and could be a driver starting gate of her current symptoms. At this time, patient should maximize conservative management. She would re-attempt physical therapy to include traction, cupping, dry needling. Can also have benefit from interventional pain and was referred to see Dr. Mancilla at [facility] for injection therapy including trigger point [...] Medicine Tobacco abuse counseling Claritza Blair APRN [facility] Department of Neurosurgery Thank you for [...] empagliflozin (Jardiance) 25 MG 1 tablet. HYDROcodone-acetaminophen ([place]) 5-325 MG tablet ibuprofen 800 MG tablet [...] documented as of this encounter Care Teams Principal Hardware Architect Relationship Specialty Start Date End Date Ana M Arceo APRN [address] [place] [address] PCP - General 11/17/24 Claritza Blair APRN, LALY [address] [facility] [address] [place] [address] Nurse Practitioner Neurosurgery 11/17/24 documented as of this encounter
--- OUTSIDE RECORDS SUMMARY | 2024-11-17 11:31 | XMS_ITS | Encounter Summary ---
Author Organization Healthcare Address [address] [place] [address] Care Team Providers Care Satellite Installation Technician Name Role Phone ArceoAna M guerrero Oz CALI Primary Care Provider +1- [phone] Claritza Blair APRN, DNP Unavailable +1- [phone] Encounter Details Date Type Department Care Team (Latest Contact Info) Description 11/17/2024 11:31 AM EDT - 11/17/2024 11:59 PM EDT [facility] [address], [address] [place] [address] Thoracic back pain Discharge Disposition: Home or [...] (Jardiance) 25 MG 1 tablet. HYDROcodone-acetam inophen ([place]) 5-325 MG tablet 10/19/2024 ibuprofen 800 MG [...] documented as of this encounter Care Teams Satellite Installation Technician Relationship Specialty Start Date End Date Ana M Arceo APRN [address] [place] [address] PCP - General 11/17/24 Claritza Blair APRN, DNP [address] [place] [address] Nurse Practitioner Neurosurgery 11/17/24 documented as of this encounter
--- NOTE | 2024-12-29 09:07 | EXP.PAIN.OV ---
HPI Data of Consult Patient: new to practice Consult date: 12/29/24 Requesting Physician: Brynn Anaya APRN Primary Care Provider: Ana M Arceo APRN Reason for consult: Mid back pain, low back pain History of present illness: Ms. Sloan is a 39 year old female who presents today as a new patient. She is a referral from Melania Arceo's office. She rates her pain today an 8 out of 10. Patient states that she has had back pain for years and does believe it is more wear and tear. She denies any specific injury or trauma she does describe it as a constant aching, throbbing sensation that does radiate into her ribs bilaterally as well as down into her low back. She states it goes to about her buttocks area. Patient states that it is worse with prolonged laying, sitting or up walking moving. Patient states that she has young kids with her youngest being a 3-year-old so she is constantly on the go and has very limited mobility due to this pain. Patient states it is interfering with her ability perform activities of daily living such as cooking and cleaning. Patient has tried oral medications including Tylenol and ibuprofen along with heat and ice and topicals with no additional improvement. Patient has had additional imaging of both her low back and mid back. Patient does state that the mid back is worse than the low back symptoms. Patient denies any previous injection history. Patient did have physical therapy and chiropractor therapy however this made everything worse. Patient was actually having some incontinence of both bowel and bladder and was set up for neurosurgery with an appointment in [place] coming up soon. Patient states this is not constant but was very concerning.She is on pregabalin from an outside provider. Her Oj has been reviewed and is appropriate. Pain at rest (0-10 scale): 8 Has patient had previous pain injection?: No Conservative treatment options previously tried: NSAIDS (Longer than 12 weeks), Home exercise plan (Longer than 12 weeks), Physical Therapy (Made worse) and Chiropractor (Made worse) cc:: CC: Brynn Anaya APRN [facility] Disclaimer: The information contained in this section may have been updated after the patient was seen, as this information can be updated by other users. Medical History Panic disorder Attention deficit disorder (ADD) in adult LGSIL on Pap smear of cervix Diabetes mellitus Memory impairment Major depressive disorder Surgical History History of right heart catheterization History of endometrial ablation History of umbilical hernia repair History of tubal ligation History of cholecystectomy History of History of tonsillectomy Family History Other Coronary artery disease Diabetes Heart attack Hyperlipidemia Hypertension Stroke Social History (Updated 12/29/24 @ 10:40 by Jadyn Granado RN) Smoking Status: Current every day smoker tobacco type: cigarettes packs per day: 1 second hand exposure: No alcohol intake: never substance use type: denies use current occupational status: employed Travel in the last 8 weeks?: None household members: family and children housing: house number of children: 4 current occupation: [employer] current occupational exposures/hazards: No caffeine: Yes physical activity: none firearms in home: Yes (locked in a safe) firearms unloaded and locked: Yes do you feel safe at home: Yes victim of physical abuse: No victim of emotional abuse: No victim of sexual abuse: No would you like helpful sources: No Contact w/someone who lives/traveled outside US past 30 days?: No Exposure to someone with infectious disease in past 14 days?: No Do you have a fever (greater than 100.4 F or 38 C)?: No Have you tested positive for COVID-19?: No Exposed to someone with COVID-19 in past 14 days?: No Do you have a sore throat?: No Do you have a cough?: No Do you have any weakness?: No Are you experiencing any nausea/vomitting?: No Do you have any diarrhea?: No Are you experiencing any unusual bleeding?: No Do you have any muscle aches/pain?: No Do you have any abdominal pain?: No Are you experiencing loss of taste or smell?: No Review of Systems Review of Systems Review of systems:: pertinent systems reviewed and negative unless documented below Review of systems (narrative): Review of Systems: General: No recent weight changes, no fever, no sleep disturbances Respiratory: No cough, no shortness of air, no recurring pulmonary infections Cardiovascular/peripheral vascular: No chest pain, no palpitations, no edema, no shortness of breath Gastrointestinal: No new onset incontinence, normal bowel movements reported Genitourinary: No new onset incontinence Musculoskeletal: Mid back pain, low back pain Psychiatric: [Normal mood/affect] Neurological: [Denies weakness in extremities], [denies balance issues] Meds Home Medications and Allergies Home Medications ?Medication ?Instructions ?Recorded ?Confirmed ?Type metoprolol succinate 25 mg 25 mg PO DAILY 09/14/24 12/21/24 History tablet,extended release 24 hr rosuvastatin 10 mg tablet 10 mg PO DAILY 09/14/24 12/21/24 History secukinumab 300 mg/2 mL 75 mg SQ QMONTH 09/14/24 12/21/24 History subcutaneous pen injector (Cosentyx UnoReady Pen) venlafaxine 150 mg See Rx Instructions .Route 09/28/24 12/21/24 Rx capsule,extended release 24 hr .COMPLEX #90 caps venlafaxine 75 mg capsule,extended See Rx Instructions .Route 09/28/24 12/21/24 Rx release 24 hr .COMPLEX #90 caps empagliflozin 25 mg tablet See Rx Instructions .Route 10/04/24 12/21/24 Rx (Jardiance) .COMPLEX #30 tabs omeprazole 40 mg capsule,delayed See Rx Instructions .Route 10/04/24 12/21/24 Rx release .COMPLEX #30 caps hydrocodone 5 mg-acetaminophen 325 1 tab PO Q4-6H PRN pain #20 tabs 10/19/24 12/21/24 Rx mg tablet cyanocobalamin (vitamin B-12) See Rx Instructions .Route 10/27/24 12/21/24 Rx 1,000 mcg/mL injection solution .COMPLEX #1 mL syringe with needle 3 mL 25 gauge #1 ea 10/27/24 12/21/24 Rx x 1 (BD Luer-Tessa Syringe) albuterol sulfate 90 mcg/actuation See Rx Instructions .Route 11/30/24 12/21/24 Rx aerosol inhaler (Ventolin HFA) .COMPLEX #18 grams cetirizine 10 mg tablet See Rx Instructions .Route 11/30/24 12/21/24 Rx .COMPLEX #30 tabs ropinirole 0.25 mg tablet See Rx Instructions .Route 11/30/24 12/21/24 Rx .COMPLEX #30 tabs methylphenidate HCl 80 mg 80 mg PO HS #30 ea 12/02/24 12/21/24 Rx capsule,delayed release,ext release sprinkle (Jornay PM) pregabalin 25 mg capsule 25 mg PO BID #60 caps 12/10/24 12/21/24 Rx cholecalciferol (vitamin D3) 125 See Rx Instructions .Route 12/13/24 12/21/24 Rx mcg (5,000 unit) capsule .COMPLEX #30 caps semaglutide 0.25 mg or 0.5 mg (2 0.25 mg (0.368 mL) SQ WEEKLY 30 12/14/24 12/21/24 Rx mg/3 mL) subcutaneous pen injector days #1.84 mL (Ozempic) ibuprofen 800 mg tablet See Rx Instructions .Route 12/16/24 12/21/24 Rx .COMPLEX #90 tabs promethazine 25 mg tablet 25 mg PO Q6H PRN nausea and 12/16/24 12/21/24 Rx vomiting #30 tabs ciprofloxacin 0.3 %-dexamethasone 4 drp otic (ear) BID 7 days #7.5 mL 12/21/24 12/21/24 Rx 0.1 % ear drops,suspension nystatin 100,000 unit/mL oral 5 ml PO BID #60 mL 12/21/24 12/21/24 Rx suspension New Prescriptions to Start Prescriptions: Allergies Allergy/AdvReac Type Severity Reaction Status Date / Time codeine (CODEINE) Allergy Unknown Vomiting Verified 12/21/24 13:15 Sulfa (Sulfonamide Allergy Unknown Vomiting Verified 12/21/24 13:15 Antibiotics) (SULFA (SULFONAMIDE ANTIBIOTICS)) Objective Narrative: Physical Exam: General: Alert and oriented x3, no acute distress, pleasant and cooperative Lungs: Respirations even and unlabored, symmetrical chest expansion Eyes: PERRL Musculoskeletal: Flexion and extension of thoracic [spine] somewhat guarded secondary to pain, [antalgic gait noted] Neurological: Speech clear, no gross sensory deficit Additional findings Additional findings: FINDINGS: Sagittal images show normal vertebral height. There is mild levoscoliosis. Marrow signal pattern is unremarkable. L1-2: Unremarkable L2-3: Unremarkable L3-4: Unremarkable L4-5: Unremarkable L5-S1: No focal disc protrusion. Mild facet arthropathy. IMPRESSION: Minimal facet degeneration in the lower lumbar spine with mild levoscoliosis. No canal stenosis. Reviewed, Interpreted and Dictated by Manuelito Rebolledo MD Transcribed by Vilma Perez Authenticated and [facility] [place] [place] FINDINGS: MRI THORACIC SPINE: The thoracic vertebral bodies are normal in height. The alignment is unremarkable. There may be changes of old underlying Schuermann's disease in the mid and lower thoracic spine. T1-2: Unremarkable T2-3: Unremarkable T3-4: Unremarkable T4-5: Unremarkable T5-6: Unremarkable T6-7: Small left paracentral disc protrusion which minimally contacts the spinal cord. No canal stenosis is noted. T7-8: Tiny right paracentral disc protrusion without canal stenosis. T8-9: A moderate central protrusion is noted with mass effect upon the spinal cord, with mild canal stenosis. T9-10: Minimal annular bulge noted without canal stenosis or cord contact. T10-11: A minimal annular bulge is present without canal stenosis or cord contact. T11-12: Unremarkable IMPRESSION: Multilevel thoracic degenerative change as described, most pronounced at the T8-9 level, in which a moderate central disc protrusion produces slight mass effect upon the spinal cord and produces mild canal stenosis. Reviewed, Interpreted and Dictated by Manuelito Rebolledo MD Transcribed by Maile Wallace Authenticated and [facility] [place] [place] Assessment and Plan *Assessment and plan (1) Degenerative disc disease, thoracic: Status: Acute Category: Medical Code(s): M51.34 - Other intervertebral disc degeneration, thoracic region (2) Thoracic radiculopathy: Status: Acute Category: Medical Code(s): M54.14 - Radiculopathy, thoracic region (3) Rib pain: Status: Acute Category: Medical Code(s): R07.81 - Pleurodynia (4) Lower back pain: Status: Acute Category: Medical Code(s): M54.50 - Low back pain, unspecified Plan Patient did have limited range of motion and tenderness during today's visit of her mid back. I did review over her thoracic imaging as well that did show more spinal canal stenosis at the T8-T9 level. We did discuss that I do believe she would benefit from a thoracic epidural steroid injection. Risk and benefits were discussed with patient and she would like to proceed forward with this plan of care. Patient has tried and failed conservative therapy including oral medications, heat and ice, topicals, physical therapy and chiropractor therapy and continued at home stretching exercise for longer than 12 weeks that was physician guided. I will order the patient a compounded cream and send in a muscle relaxer of Skelaxin 800 mg 3 times daily as needed with a 2-week dose. Patient will be scheduled for a thoracic epidural steroid injection T8-T9 under fluoroscopy. Patient has been instructed to contact the clinic with any concerns before the next appointment. Dr. Mancilla has reviewed this note and agrees with this plan of care. This note was dictated using voice recognition software and make contain errors or omissions. All injections are used with Lidocaine, Bupivacaine and dexamethasone. Occasionally urine drug screen is needed to verify patient's compliance with our office pain contract. This is ordered based off specific treatments related to chronic pain with the potential to abuse certain medications.
--- OUTSIDE RECORDS SUMMARY | 2024-12-29 09:09 | XMS_ITS | Data Portability ---
Author Organization PATO - ROSE [facility] & ROSALIND Freedman ADMIN Address [address] [place] [address] Care Team Providers Care Battery Tester And Repairer Name Role Phone SUZAN MANE Referring Provider SUZAN MANE Primary Care Provider Assessment No assessment recorded. Plan of Treatment Reminders Order Date Submit Date Provider Last Modified By Organization Details Last Modified Time Details Appointments None recorded. Lab None recorded. Referral None recorded. Procedures None recorded. Surgeries None recorded. Imaging None recorded. Medication Orders pantoprazol e 40 mg tablet,mell yed release 2021 022 [facility], [address] [place] [address], [address], [place], [address], 10:41:37 Patient TargetsNo targets recorded. Patient InstructionsNo instructions recorded. Reason for Referral None Reported. Results Created Date Observation Date Name Description Value Unit Range Abnormal Flag Note LastModifiedBy Organization Detail LastModifiedTime Result Notes None recorded. Problems Name Problem SNOMED Code Status Onset Date Resolution Date Notes Provider Name and Address Organization Details Recorded Time Ring's esophagus 498392252 Active 022 [address] park [facility] & [place] 15:42:54 Problem Notes None recorded. Medical Equipment None Reported. Allergies Allergen ID Allergen Name Allergen Category Reaction Reaction Severity Criticality Documentation Date Start Date Code Code System Note Provider Name and Address Organization Details Recorded Time 69423 Substance with sulfonami de structure and antibacte rial mechanism of action (substanc e) medicatio n Not available Not available Not available 05/24/2022 63187 8003 SNOMED PATO Austin - LPNT [facility] & [place] 2 10:08:17 49279 codeine medicatio n Not available Not available Not available 05/24/2022 2670 RxNorm PATO Austin - LPNT [facility] & [place] 2 10:08:22 Medications Name Sig Start [...] Address Organization Details Last Updated DateTime 05/24/2022 88956.3 g 78 /min 128/80 mm[Hg] Samaraaddie Solo [place] [facility] [place] 05/24/2022 10:17:00 Social History None recorded. [...] SNOMED-CT Code Diagnosis ICD10 Code Diagnosis Note 358144 Griselda Tamayo NP [facility] [address] [address] 05/24/2022 10:01:07 05/24/2022 10:31:45 Ring's esophagus 715167294 K22.70 - change omeprazole to pantoprazo le b.i.d.- EGD scheduled History of polyp of colon 427664481 Z86.010 History of colitis 58238 9006 Z87.19 - colonoscop y scheduled Health Concerns Section Related Observation LastModified by Organization Detai ls LastModified Time None Recorded Concern Status LastModified by Organization Details LastModified Time None Recorded Advance Directives Directive None Recorded Payers Insurance Date Sequence Insurance Name Policy Number Policy Mcdaniels Covered Member ID Mcdaniels Member ID Guarantor Name 06/10/2022 2 AETNA [place] [facility] [id number] [facility] 06/10/2022 1 AETNA [facility] (MEDICAID HMO) Jessie [facility] [id number] Jessie [facility] 08/23/2022 1 AETNA [facility] (MEDICAID HMO) Jessie [facility] [id number] [facility] 06/10/2022 1 [facility] - AETNA (POS II) Jessie Sloan [id number] Jessie [facility] 05/24/2022 1 ERIC Roman Nathalia [id number] Jessie Sloan Notes Date Note Type Note Provider Name and Address Organization Details Recorded Time 05/24/2022 text/html patient is a 37-year-old female referred to our office by Dr. Edmar Storey. Patient was recently treated for colitis at [facility]. Reports abdominal pain has improved and diarrhea has resolved. Reports she did have some blood-tinged mucousy stool. 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 Her last EGD and colonoscopy was in November of 2020 at [facility]. Reports she also had history of colon polyps. Griselda Tamayo, BRYANT [address] [facility], [place], [address], [facility] [place] & [place] 05/24/2022 10:33:20 OBGyn Episode No OBEpisode recorded.
--- OUTSIDE RECORDS SUMMARY | 2024-12-29 09:09 | XMS_ITS | Encounter Summary ---
Author Organization Healthcare Address [address] [place] [address] Care Team Providers Care Music Arranger Name Role Phone Ana M Arceo APRN Primary Care Provider +1- [phone] Claritza Blair APRN, DNP Unavailable +1- [phone] Encounter Details Date Type Department Care Team (Late st Contact Info) Description 09/28/2024 Orders Only External Location [address] [place] [address] Provider, External Social History Tobacco Use Types [...] on filedocumented in this encounter Care Teams Music Arranger Relationship Specialty Start Date End Date Ana M Arceo APRN [address] [place] [address] PCP - General 11/17/24 Claritza Blair, OVEREDGE MACHINE OPERATOR, DNP [address] [phone] Nurse Practitioner Neurosurgery 11/17/24 documented as of this encounter
--- OUTSIDE RECORDS SUMMARY | 2024-12-29 09:09 | XMS_ITS | Encounter Summary ---
Author Organization Healthcare Address [address] [place] [address] Care Team Providers Care Regional Property Manager Name Role Phone Ana M Arceo APRN Primary Care Provider +1- [phone] Claritza Blair APRN, DNP Unavailable +1- [phone] Encounter Details Date Type Department Care Team (Late st Contact Info) Description 09/28/2024 Orders Only External Location [address] [place] [address] Provider, External Social History Tobacco Use Types [...] on filedocumented in this encounter Care Teams Regional Property Manager Relationship Specialty Start Date End Date Ana M Arceo APRN [address] [place] [address] PCP - General 11/17/24 Claritza Blair, FIRE BOSS, DNP [address] [phone] Nurse Practitioner Neurosurgery 11/17/24 documented as of this encounter
--- OUTSIDE RECORDS SUMMARY | 2024-12-29 09:10 | XMS_ITS | Encounter Summary ---
Author Organization Healthcare Address [address] [place] [address] Care Team Providers Care Cartographic Drafter Name Role Phone Ana M Arceo APRN Primary Care Provider +1- [phone] Claritza Blair APRN, DNP Unavailable +1- [phone] Encounter Details Date Type Department Care Team [...] documented as of this encounter Care Teams Cartographic Drafter Relationship Specialty Start Date End Date Ana M Arceo APRN [address] [place] [address] PCP - General 11/17/24 Claritza Blair APRN, DNP [address] [place] [address] Nurse Practitioner Neurosurgery 11/17/24 documented as of this encounter
--- OUTSIDE RECORDS SUMMARY | 2024-12-29 09:10 | XMS_ITS | Encounter Summary ---
Author Organization Healthcare Address [address] [place] [address] Care Team Providers Care Marine Engineer Cpvec Name Role Phone Ana M Arceo Oz MUSHROOM PICKER Primary Care Provider +1- [phone] Claritza Blair MUSHROOM PICKER, DNP Unavailable +1- [phone] Encounter Details Date Type Department Care Team (Late st Contact Info) Description 12/10/2024 Telephone [place] [facility] [address], [address] [place] [address] Claritza Blair, MUSHROOM PICKER, DNP [address] [place] [address] Social History Tobacco Use Types [...] ov notes from consult please fax to [phone] Best contact number and optimal time of day to reach caller: Edel [phone] Note: Please do not reply to this message. Follow-up communication and further actions as a result of this message need to be communicated with the patient directly, if the patient is not active onMyChart. If the patient is active on MyChart, they will receive notification of the communication/outcome via [employer]. documented in this encounter Plan of Treatment [...] documented as of this encounter Care Teams Marine Engineer Cpvec Relationship Specialty Start Date End Date Ana M Arceo APRN [address] [place] [address] PCP - General 11/17/24 Claritza Blair APRN, DNP [address] [facility] [address] [place] [address] Nurse Practitioner Neurosurgery 11/17/24 documented as of this encounter
--- OUTSIDE RECORDS SUMMARY | 2024-12-29 09:10 | XMS_ITS | Data Portability ---
Author Organization [facility], [facility] Address [address] [place] [address] Care Team Providers Care Material Expediter Name Role Phone SUZAN MANE Primary Care Provider [phone] SUZAN MANE Referring Provider Assessment Encounter Date [...] Medication Orders baclofen 5 mg tablet 2024 [facility], [address] [facility], [address], [place], [address], 16:12:48 Tolectin 600 600 mg tablet 2024 [facility], [address] [facility] [address], [place], [place], [id number], 16:11:48 Patient TargetsNo targets recorded. Patient Instructions Encounter Date Encounter Id Patient Instructions Last Modified By Organization Details Last Modified Time 11/08/2024 [id number] behavioral healt h screen* [email or web address] Not available 11/30/2024 07:43:33 Reason for Referral Physical Therapist Referral for Myofascial pain eval and treat lower back and mid back myofascial pain please include dry needling Referring Physician: Chema Peña, Pain Management, Encounter Date: 11/08/2024 Problems Name Problem SNOMED Code Status Onset Date Resolution Date Notes Provider Name and Address Organization Details Recorded Time Myofascial pain 228542749 Active [facility] PATO Helm [facility] 14:02:54 Chronic pain 49835175 Active [facility] PATO Helm [facility] 14:02:54 Problem Notes None recorded. Procedures Surgical History Date Name Laterality Status Provider Name and Address Organization Details Recorded Time tonsilectomy/brittany noids completed Claritza Redmond [facility] 11/08/2024 15:36:07 Hernia Repair completed Claritza Redmond [facility] 11/08/2024 15:36:22 uterus destructive procedure completed Claritza Redmond [facility] 11/08/2024 15:37:01 ligation of bilateral fallopian tubes completed Claritza Redmond [facility] 11/08/2024 15:37:25 Imaging Results None recorded. Procedure Notes None recorded. Medical Equipment None Reported. Allergies Allergen ID Allergen Name Allergen Category Reaction Reaction Severity Criticality Documentation Date Start Date Code Code System Note Provider Name and Address Organization Details Recorded Time 255514 codeine medicatio n Not available Not available Not available 11/08/2024 2670 [facility] 15:32[facility]37 405490 Substance with sulfonami de structure and antibacte rial mechanism of action (substanc e) medicatio n Not available Not available Not available 11/08/2024 65594 8003 SN[facility]ED [facility] 15:32:42 Medications Name Sig Start Date Stop [...] Available Not Available Not Avai lable vitamin R80-egusa acid injection solution Take by injection route. [...] Last Updated DateTime 165.1 cm 26.6 kg/m2 85073.7 8 g 98 % 98 % 99 /min 131/84 mm[Hg] Claritza Redmond [facility] 15:32:29 Social History Question Answer Notes LastModified by [employer] ion Details LastModified Time Tobacco Smoking Status Current Every Day Smoker Claritza park [facility] 11/08/2024 15:35:58 Do You Have An Advance Directive? No [email or web address] Information not available 11/08/2024 Do You Have A Medical Power Of Mothers Helper? No [email or web address] Information not available 11/08/2024 What Is Your Relationship Status? Single [email or web address] Information not available 11/08/2024 How Much Tobacco Do You Smoke? 1 PPD [email or web address] Information not available 11/08/2024 Sex: Unknown Functional Status Question Answer Note LastModified by Organizat ion Details LastModified Time Do you use any illicit or recreational drugs? No [email or web address] Information not available 11/08/2024 What is your level of alcohol consumption? None [email or web address] Information not available 11/08/2024 Are you currently employed? Yes [email or web address] Information not available 11/08/2024 Are you able to walk? YESWOREST [email or web address] Information not available 11/08/2024 Mental Status None recorded. Family History Nothing Reported. Medical History Condition Response Bipolar Disease N Coronary Artery Disease N Gout N Seizure Disorder N Thyroid Disease N Atrial Fibrillation N Hernia N Head Trauma/Injury N COPD N Depression Y Anxiety Disorder N Acid Reflux (GERD) N Cancer N Skin Disorder N Stroke N High Cholesterol Y Liver Disease N Rheumatoid Arthritis N Fibromyalgia N Headaches N Autoimmune Disease N Kidney Disease N Osteoarthritis N Neurosurgery N DVT N Peptic Ulcer Disease N Anemia N Heart Attack ([place]) N Diabetes Y Cardiomyopathy N Bleeding Disorder [...] SNOMED-CT Code Diagnosis ICD10 Code Diagnosis Note [id number] CHEMA PEÑA MD [place] [address] [facility] [address] [place] [address] 11/08/2024 14:33:37 11/08/2024 16:01:12 Chronic pain 73769503 G89.29 Myofascial pain 65944449 9 M79.18 I recommend physical therapy with [...] Member ID Guarantor Name 12/07/2024 1 AETNA [facility] (MEDICAID HMO) Jessie Sloan [id number] Jessie Sloan Notes Date Note Type Note [...] to bathe/groom without assistance.; Able to complete warp scouring vat tender without much difficulty.; Walking without assistance or significant difficulty; Working without restriction.; Exercising on a regular basis.; Participating in recreation on a regular basis. Prior Imaging:MRI; Lumbar MRI at [facility] Lumbar Surgery:none; Patient has upcoming appt at [facility] at 11/17/2024 Interventional Treatment History:Patient denies any past injection therapy. Physical Therapy:Facility: ([facility]); complete 5weeks; dates: (08/2024-09/2024); response to therapy: made pain/symptoms worse Current Analgesics:Hydrocod one/APAP effective Other Conservative Treatments:chiropra ctic treatments: not effective Prior Pain Management:no Oswestry Disability Index (GUS)Score/Date Completed: (78%) For Female Patients:Are you ? No CHEMA PEÑA MD [address] [place] [address], [address], [facility] 11/08/2024 16:04:25 OBGyn Episode No OBEpisode recorded.
--- OUTSIDE RECORDS SUMMARY | 2024-12-29 09:10 | XMS_ITS | Clinical Summary ---
Author Organization [facility] Address [address] [place] [address] Care Team Providers Care Associate Financial Advisor Name Role Phone ArceoAna M guerrero Oz STEAM SHOVEL OPERATING ENGINEER Primary Care Provider +1- [phone] Claritza Blair APRN, DNP Unavailable +1- [phone] Allergies Active Allergy Reactions Criticality Noted Date Comments Codeine Nausea And Vomiting Low 09/07/2024 Sulfa Drugs Nausea And Vomiting Low 09/07/2024 Medications cetirizine (ZyrTEC) 10 MG tablet 12/15/2023 Active cholecalciferol (Vitamin D-3) 125 MCG (5000 UT) capsule daily. Active cyanocobalamin (Vitamin B-12) 1000 MCG/ML injection 05/10/2024 Active empagliflozin (Jardiance) 25 MG 1 tablet. Active HYDROcodone-acet aminophen ([place]ston) 5-325 MG tablet 10/19/2024 Active ibuprofen 800 [...] Type Department Care Team Description 12/10/[address] [place] [address] Claritza Blair APRN, LALY 11/17/2024 11:31 AM EDT - 11/17/2024 11:59 PM EDT Hospital Encounter [facility] [address] [place] [address], [address] [place] [address] Thoracic back pain Discharge Disposition: Home or Self Care 11/17/2024 10:50 AM EDT Consult [address] [place] [address] Claritza Blair, VIRAJ, LALY Myofascial low back pain (Primary Dx); Thoracic back pain; Facet arthritis of lumbar region; DDD (degenerative disc disease), thoracic; Tobacco abuse counseling 11/17/2024 Travel from Last 3 Months Social History Tobacco [...] 01/13/2005 [facility]-Cervical Cancer Screening 01/13/2014 [facility]-HPV/Cotest 01/13/2014 [id number] Vaccine (1 - 20 24-25 season) 2024 [...] 11/17/2024 11:59 AM EDT Thoracic back pain from Last 3 Months Results * XR [...] LALY IMG XR PROCEDURES Fi nal Result from Last 3 Months Insurance AETNA [facility] MEDICAID Care Teams Associate Financial Advisor Relationship Specialty Start Date End Date Ana M Arceo APRN [address] [place] [address] PCP - General 11/17/24 Claritza Blair APRN, DNP [address] [facility] [address] [place] [phone] Nurse Practitioner Neurosurgery 11/17/24
--- OUTSIDE RECORDS SUMMARY | 2024-12-29 09:10 | XMS_ITS | Continuity of Care Document ---
Author Organization [facility] Address [address] [facility] [address] [place] [address] Care Team Providers Care Loader Operator/Ground Leader Name Role Phone SUZAN MANE Primary Care [...] Medication Orders baclofen 5 mg tablet 2024 [facility], [address] [facility], [address], [place], [address], 16:12:48 Tolectin 600 600 mg tablet 2024 [facility], [address] [facility] [address], [place], [place], [id number], 16:11:48 Patient TargetsNo targets recorded. Patient Instructions Encounter Date Encounter Id Patient Instructions Last Modified By Organization Details Last Modified Time 11/08/2024 [id number] behavioral healt h screen* [email or web address] Not available 11/30/2024 07:43:33 Reason for Referral Physical Therapist Referral for Myofascial pain eval and treat lower back and mid back myofascial pain please include dry needling Referring Physician: Chema Peña, Pain Management, Encounter Date: 11/08/2024 Problems Name Problem SNOMED Code Status Onset Date Resolution Date Notes Provider Name and Address Organization Details Recorded Time Myofascial pain 614674087 Active [facility] PATO Helm [facility] 14:02:54 Chronic pain 74875024 Active [facility] PATO Helm [facility] 14:02:54 Problem Notes None recorded. Procedures Surgical History Date Name Laterality Status Provider Name and Address Organization Details Recorded Time tonsilectomy/brittany noids completed Claritza Redmond [facility] 11/08/2024 15:36:07 Hernia Repair completed Claritza Redmond [facility] 11/08/2024 15:36:22 uterus destructive procedure completed Claritza Redmond [facility] 11/08/2024 15:37:01 ligation of bilateral fallopian tubes completed Claritza Redmond [facility] 11/08/2024 15:37:25 Imaging Results None recorded. Procedure Notes None recorded. Medical Equipment None Reported. Allergies Allergen ID Allergen Name Allergen Category Reaction Reaction Severity Criticality Documentation Date Start Date Code Code System Note Provider Name and Address Organization Details Recorded Time 736869 codeine medicatio n Not available Not available Not available 11/08/2024 2670 [facility] 15:32:37 486231 Substance with sulfonami de structure and antibacte rial mechanism of action (substanc e) medicatio n Not available Not available Not available 11/08/2024 61267 8003 SNOMED [facility] 15:32:42 Medications Name Sig Start Date [...] Available Not Available Not Avai lable vitamin G93-otbua acid injection solution Take by injection route. [...] Last Updated DateTime 165.1 cm 26.6 kg/m2 32198.7 8 g 98 % 98 % 99 /min 131/84 mm[Hg] Claritza Redmond [facility] 15:32:29 Social History Question Answer Notes LastModified by [employer] ion Details LastModified Time Tobacco Smoking Status Current Every Day Smoker Claritza park [facility] 11/08/2024 15:35:58 Do You Have An Advance Directive? No [email or web address] Information not available 11/08/2024 Do You Have A Medical Power Of Aircraft Design Engineer? No [email or web address] Information not available 11/08/2024 What Is Your Relationship Status? Single Information not available 11/08/2024 How Much Tobacco Do You Smoke? 1 PPD [email or web address] Information not available 11/08/2024 Sex: Unknown Functional Status Question Answer Note LastModified by Organizat ion Details LastModified Time Do you use any illicit or recreational drugs? No [email or web address] Information not available 11/08/2024 What is your level of alcohol consumption? None [email or web address] Information not available 11/08/2024 Are you currently employed? Yes [email or web address] Information not available 11/08/2024 Are you able to walk? YESWOREST [email or web address] Information not available 11/08/2024 Mental Status None [...] Ulcer Disease N Anemia N Heart Attack ([place]) N Diabetes Y Cardiomyopathy N Bleeding Disorder [...] SNOMED-CT Code Diagnosis ICD10 Code Diagnosis Note [id number] CHEMA PEÑA MD [address],[facility] [address] [place] [address] 11/08/2024 14:33:37 11/08/2024 16:01:12 Chronic pain 05056446 G89.29 Myofascial pain 84812157 9 M79.18 I recommend physical therapy with [...] Member ID Guarantor Name 11/08/2024 1 AETNA [facility] (MEDICAID HMO) Jessie Sloan [id number] Jessie Sloan Notes Date Note Type Note [...] to bathe/groom without assistance.; Able to complete clinical application manager without much difficulty.; Walking without assistance or significant difficulty; Working without restriction.; Exercising on a regular basis.; Participating in recreation on a regular basis. Prior Imaging:MRI; Lumbar MRI at [facility] Lumbar Surgery:none; Patient has upcoming appt at [facility] at 11/17/2024 Interventional Treatment History:Patient denies any past injection therapy. Physical Therapy:Facility: ([facility]); complete 5weeks; dates: (08/2024-09/2024); response to therapy: made pain/symptoms worse Current Analgesics:Hydrocod one/APAP effective Other Conservative Treatments:chiropra ctic treatments: not effective Prior Pain Management:no Oswestry Disability Index (GUS)Score/Date Completed: (78%) For Female Patients:Are you ? No CHEMA PEÑA MD [address] [place] [address], [address], [facility] 11/08/2024 16:04:25 OBGyn Episode No OBEpisode recorded.
[2024-12-29 10:38] VITALS: BP 128/71; PULSE 99; RESP 18; O2SAT 99; BMI 28.3
== END 2024-12-29 23:59 | disposition home or self-care (01) ==
PROVIDERS: PCP Nurse Practitioner Family; Visit Provider Nurse Practitioner Family
DX: M51.14 Intervertebral disc disorders with radiculopathy, thoracic region (principal); R07.81 Pleurodynia
CPT/HCPCS: 99202; G0463

== ENCOUNTER 2024-12-29 10:04 | Outpatient (CLI) | payer OTHER, SELFPAY ==
--- OUTSIDE RECORDS SUMMARY | 2024-11-17 10:50 | XMS_ITS | Encounter Summary ---
Author Organization [facility] Address [address] [id number] Care Team Providers Care Paper Tube Machine Operator Name Role Phone Ana M Arceo VIRAJ Primary Care Provider +1- [phone] Claritza Blair APRN, DNP Unavailable +1- [phone] Reason for Referral * Consultation (Routine) - Authorized Specialty Diagnoses / Procedures Referred By Contac t Referred To Contact Pain Medicine Diagnoses Thoracic back pain Myofascial low back pain Facet arthritis of lumbar region DDD (degenerative disc disease), thoracic Claritza Blair APRN, DNP [address] [address] Phone: tel: fax: Referral ID Status Reason Start Date Expiration Date Visits Requested Visits Authorized [id number] Authorized Specialty Services Required 11/17/2024 05/19/2026 1 1 [facility] Consultation (Routine) - Authorized Specialty Diagnoses / Procedures Referred By Contac t Referred To Contact Physical Therapy Diagnoses Thoracic back pain Myofascial low back pain Facet arthritis of lumbar region DDD (degenerative disc disease), thoracic Claritza Blair APRN, DNP [address] [address] Phone: tel: fax: Referral ID Status Reason Start Date Expiration Date Visits Requested Visits Authorized [id number] Authorized Consult and Treat 11/17/2024 05/19/2026 1 1 Reason for Visit * Consultation (Routine) - Closed Specialty Diagnoses / Procedures Referred By Gladys t Referred To Contact Neurosurgery Diagnoses Thoracic back pain Ana M Arceo APRN [address] [place] [address] Phone: tel: fax: [address], [address] [place] [address] Phone: tel: fax: Referral ID Status Reason Start Date Expiration Date V isits Requested Visits Authorized [id number] Closed Specialty Services Required 10/28/2024 04/29/2026 1 1 Encounter Details Date Type Department Care Team (Late st Contact Info) Description 11/17/2024 10:50 AM EDT Consult [address] [place] [place] [address] Claritza Blair APRN, LALY [address] [facility] [address] [place] [address] Myofascial low back pain (Primary [...] physical therapy about 2 months ago at [facility] and [place], [place]. 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 At this time, patient should maximize conservative management. She would re-attempt physical therapy to include traction, cupping, dry needling. Can also have benefit from interventional pain and was referred to see Dr. Mancilla at [facility] for injection therapy including trigger point [...] Medicine Tobacco abuse counseling Claritza Blair APRN [facility] Department of Neurosurgery Thank you for [...] empagliflozin (Jardiance) 25 MG 1 tablet. HYDROcodone-acetaminophen ([place]) 5-325 MG tablet ibuprofen 800 MG tablet [...] documented as of this encounter Care Teams Paper Tube Machine Operator Relationship Specialty Start Date End Date Ana M Arceo APRN [address] [place] [address] PCP - General 11/17/24 Claritza Blair APRN, LALY [address] [facility] [address] [place] [address] Nurse Practitioner Neurosurgery 11/17/24 documented as of this encounter
--- OUTSIDE RECORDS SUMMARY | 2024-11-17 11:31 | XMS_ITS | Encounter Summary ---
Author Organization Healthcare Address [address] [place] [address] Care Team Providers Care Wound Treatment Rn Name Role Phone ArceoAna M guerrero Oz CALI Primary Care Provider +1- [phone] Claritza Blair APRN, DNP Unavailable +1- [phone] Encounter Details Date Type Department Care Team (Latest Contact Info) Description 11/17/2024 11:31 AM EDT - 11/17/2024 11:59 PM EDT Hospital Encounter [facility] [address], [address] [place] [address] Thoracic back pain Discharge Disposition: Home or Self Care Social History Tobacco Use Types Packs/Day Years Used Date Smoking Tobacco: Every Day Cigarettes Smokeless Tobacco: Never Alcohol Use Standard Drinks/Week Comments Never 0 (1 standard drink = 0.6 oz pur e alcohol) Comments Unknown Sex and Gender Information Value Date Recorded Sex Assigned at Not on file Legal Sex Female 8:54 PM EDT Gender Identity Not on file Sexual Orientation Not on file documented as of this encounter Medications at Time of Discharge B-D 3CC LUER-FABIAN SYR 25GX1 25G X 1 3 ML misc 10/27/2024 cetirizine (ZyrTEC) 10 MG tablet 12/15/2023 cholecalciferol (Vitamin D-3) 125 MCG (5000 UT) capsule daily. Cosentyx UnoReady 300 MG/2ML auto-injector pen 11/08/2024 cyanocobalamin (Vitamin B-12) 1000 MCG/ML injection 05/10/2024 empagliflozin (Jardiance) 25 MG 1 tablet. HYDROcodone-acetam inophen ([place]) 5-325 MG tablet 10/19/2024 ibuprofen 800 MG tablet 1 tablet. Jornay PM 80 MG capsule sustained-release 24 hr 04/12/2024 metoprolol succinate XL (Toprol-XL) 25 MG 24 hr tablet 1 tablet. omeprazole (PriLOSEC) [address] capsule 1 capsule. promethazine (Phenergan) 25 MG tablet 06/01/2024 rOPINIRole (Requip) 0.25 MG tablet 04/05/2024 rosuvastatin (Crestor) 10 MG tablet 09/07/2024 venlafaxine XR (Effexor-XR) 150 MG 24 hr capsule 01/22/2024 documented as of this encounter Plan of Treatment Not on file documented as of this encounter Procedures Procedure Name Priority Date/Time Associated Diagnosis Comments XR SCOLIOSIS ENTIRE SPINE 2 OR 3 VIEWS Routine 11/17/2024 11:59 AM EDT Thoracic back pain documented in this encounter Results * XR Scoliosis Entire [...] documented in this encounter Visit Diagnoses Diagnosis Thoracic back pain Pain in thoracic spine documented in this encounter Additional Health Concerns Assessment Noted Time A fall risk assessment has been complete d for the patient 11/17/2024 10:24 AM EDT A Body Mass Index follow-up plan has been documented for the patient 11/17/2024 1:40 PM EDT documented as of this encounter Care Teams Wound Treatment Rn Relationship Specialty Start Date End Date Ana M Arceo APRN [address] [place] [address] PCP - General 11/17/24 Claritza Blair APRN, DNP [address] [place] [address] Nurse Practitioner Neurosurgery 11/17/24 documented as of this encounter
--- OUTSIDE RECORDS SUMMARY | 2024-12-29 10:15 | XMS_ITS | Encounter Summary ---
Author Organization Healthcare Address [address] [place] [address] Care Team Providers Care Supervisor Partial Denture Department Name Role Phone Ana M Arceo APRN Primary Care Provider +1- [phone] Claritza Blair APRN, DNP Unavailable +1- [phone] Encounter Details Date Type Department Care Team [...] as of this encounter Care Teams Supervisor Partial Denture Department Relationship Specialty Start Date End Date Ana M Arceo APRN [address] [place] [address] PCP - General 11/17/24 Claritza Blair APRN, DNP [address] [place] [address] Nurse Practitioner Neurosurgery 11/17/24 documented as of this encounter
--- OUTSIDE RECORDS SUMMARY | 2024-12-29 10:15 | XMS_ITS | Encounter Summary ---
Author Organization Healthcare Address [address] [place] [address] Care Team Providers Care Club Car Attendant Name Role Phone Ana M Arceo APRN Primary Care Provider +1- [phone] Claritza Blair APRN, DNP Unavailable +1- [phone] Encounter Details Date Type Department Care Team (Late st Contact Info) Description 09/28/2024 Orders Only External Location [address] [place] [address] Provider, External Social History Tobacco Use Types [...] on filedocumented in this encounter Care Teams Club Car Attendant Relationship Specialty Start Date End Date Ana M Arceo APRN [address] [place] [address] PCP - General 11/17/24 Claritza Blair, TEA TREE FARM WORKER, DNP [address] [phone] Nurse Practitioner Neurosurgery 11/17/24 documented as of this encounter
--- OUTSIDE RECORDS SUMMARY | 2024-12-29 10:15 | XMS_ITS | Encounter Summary ---
Author Organization Healthcare Address [address] [place] [address] Care Team Providers Care Artificial Intelligence Specialist Name Role Phone Ana M Arceo APRN Primary Care Provider +1- [phone] Claritza Blair APRN, DNP Unavailable +1- [phone] Encounter Details Date Type Department Care Team (Late st Contact Info) Description 09/28/2024 Orders Only External Location [address] [place] [address] Provider, External Social History Tobacco Use Types [...] on filedocumented in this encounter Care Teams Artificial Intelligence Specialist Relationship Specialty Start Date End Date Ana M Arceo APRN [address] [place] [address] PCP - General 11/17/24 Claritza Blair, DIRECTOR MANUFACTURING ENGINEERING, DNP [address] [phone] Nurse Practitioner Neurosurgery 11/17/24 documented as of this encounter
--- OUTSIDE RECORDS SUMMARY | 2024-12-29 10:16 | XMS_ITS | Encounter Summary ---
Author Organization Healthcare Address [address] [place] [address] Care Team Providers Care Lunchroom Food Service Supervisor Name Role Phone Ana M Arceo Oz CHOKER HOOKER Primary Care Provider +1- [phone] Claritza Blair CHOKER HOOKER, DNP Unavailable +1- [phone] Encounter Details Date Type Department Care Team (Late st Contact Info) Description 12/10/2024 Telephone [facility] [address], [address] [place] [address] Claritza Blair, CHOKER HOOKER, DNP [address] [place] [address] Social History Tobacco Use Types [...] ov notes from consult please fax to [phone] Best contact number and optimal time of day to reach caller: Edel [phone] Note: Please do not reply to this message. Follow-up communication and further actions as a result of this message need to be communicated with the patient directly, if the patient is not active onMyChart. If the patient is active on MyChart, they will receive notification of the communication/outcome via [facility]. documented in this encounter Plan of Treatment [...] documented as of this encounter Care Teams Lunchroom Food Service Supervisor Relationship Specialty Start Date End Date Ana M Arceo APRN [address] [place] [address] PCP - General 11/17/24 Claritza Blair APRN, DNP [address] [facility] [address] [place] [address] Nurse Practitioner Neurosurgery 11/17/24 documented as of this encounter
--- OUTSIDE RECORDS SUMMARY | 2024-12-29 10:16 | XMS_ITS | Clinical Summary ---
Author Organization [facility] Address [address] [place] [address] Care Team Providers Care Brush Maker Name Role Phone ArceoAna M guerrero Oz [employer]URN[employer]URE SALES Primary Care Provider +1- [phone] Claritza Blair APRN, DNP Unavailable +1- [phone] Allergies Active Allergy Reactions Criticality Noted Date Comments Codeine Nausea And Vomiting Low 09/07/2024 Sulfa Drugs Nausea And Vomiting Low 09/07/2024 Medications cetirizine (ZyrTEC) 10 MG tablet 12/15/2023 Active cholecalciferol (Vitamin D-3) 125 MCG (5000 UT) capsule daily. Active cyanocobalamin (Vitamin B-12) 1000 MCG/ML injection 05/10/2024 Active empagliflozin (Jardiance) 25 MG 1 tablet. Active HYDROcodone-acet aminophen ([place]) 5-325 MG tablet 10/19/2024 Active ibuprofen 800 [...] Type Department Care Team Description 12/10/[address] [place] [address] Claritza Blair APRN, LALY 11/17/2024 11:31 AM EDT - 11/17/2024 11:59 PM EDT Hospital Encounter [facility] Radiology [address] [place] [address], [address] [place] [phone] Thoracic back pain Discharge Disposition: Home or Self Care 11/17/2024 10:50 AM EDT Consult [address], [address] [place] [address] Claritza Blair, VIRAJ, LALY Myofascial low back [...] 01/13/2005 [facility]-Cervical Cancer Screening 01/13/2014 [facility]-HPV/Cotest 01/13/2014 [id number] Vaccine (1 - 20 24-25 season) 2024 [...] Result from Last 3 Months Insurance AETNA [facility] MEDICAID Care Teams Brush Maker Relationship Specialty Start Date End Date Ana M Arceo APRN [address] [place] [address] PCP - General 11/17/24 Claritza Blair APRN, DNP [address] [facility] [address] [place] [phone] Nurse Practitioner Neurosurgery 11/17/24
[2024-12-29 10:56] LABS: Hematocrit 49.5 % (37.0-47.0); Hemoglobin 15.9 g/dL (12.2-16.2); Immature Granulocytes % 0.3 %; Mean Corpuscular HGB Conc 32.1 g/dL (31.8-35.4); Mean Corpuscular Hemoglobin 29.7 pg (27.0-31.2); Mean Corpuscular Volume 92.5 fl (81-99); Nucleated Red Blood Cells % 0 %; Platelet Count 247 K/mm3 (142-424); Red Blood Count 5.35 M/mm3 (4.20-5.40); Red Cell Distribution Width-SD 48.0 fL; White Blood Count 13.2 K/mm3 (4.8-10.8)
== END 2024-12-29 23:59 | disposition home or self-care (01) ==
LOC: LAB 10:04
PROVIDERS: PCP Nurse Practitioner Family; Visit Provider Nurse Practitioner Family
DX: D72.829 Elevated white blood cell count, unspecified (principal); K52.9 Noninfective gastroenteritis and colitis, unspecified
CPT/HCPCS: 36415; 85025

== ENCOUNTER 2025-02-01 09:03 | Day surgery (SDC) | payer OTHER, SELFPAY ==
[2025-02-01 09:15] VITALS: BP 134/78; PULSE 86; RESP 18; O2SAT 98; BMI 30.7
--- NOTE | 2025-02-01 09:28 | P.PCN_ITS ---
Procedure Date: 02/01/25 Time: 09:20 Anesthesiologist:: Corey Bobby CRNA Complications:: None Pre-procedure Diagnosis:: Degenerative disc thoracic spine multilevels. Disc bulge thoracic spine multilevel. Thoracic radiculopathy. Post-procedure Diagnosis:: Same Indications for Procedure:: Patient is a very pleasant 40-year-old female who comes our clinic today for a T8-9 thoracic epidural steroid injection. Patient describes thoracic back pain as central with radicular symptoms bilaterally. She rates her pain 7/10. Patient's MRI shows multilevel disc bulge thoracic spine. Thoracic spinal stenosis. Procedure Details:: Procedure:Thoracic epidural steroid injection under fluoroscopy Informed consent was obtained and the risks and benefits of the procedure were explained to the patient. The patient was taken to the procedure room and noninvasive monitors placed, including noninvasive blood pressure cuff and pulse oximeter. The back was viewed using C-Arm fluoroscopy and prepped using chlorhexidine as a cleansing solution and the T8-T9 interspace was palpated. Skin and subcutaneous tissues were anesthetized using lidocaine 1.5% and a 25- gauge needle. After this, an 18-gauge Touhy epidural needle was placed into the T8-T9 interspace and advanced using fluoroscopic guidance and loss of resistance to air until the epidural space was encountered. After confirmation of needle placement in the epidural space, with dye, a solution containing lidocaine 1.5%, 4 mL and dexamethasone 10 mg were incrementally injected into the thoracic epidural space. The patient tolerated the procedure well with no complications. The patient was observed in the Pain Clinic and then discharged home neurologically intact. Plan and Disposition:: Patient was discharged without incident.
[2025-02-01 09:33] VITALS: BP 133/77; PULSE 83; RESP 18; O2SAT 98
[2025-02-01] MEDS: DEXAMETHASONE 10MG/ML 1ML VIAL 10 MG (09:33)
[2025-02-01 09:34] VITALS: BP 119/67; PULSE 88; RESP 18; O2SAT 98
[2025-02-01 09:35] VITALS: BP 119/67; PULSE 88; RESP 18; O2SAT 98
== END 2025-02-01 09:33 | disposition home or self-care (01) ==
PROVIDERS: PCP Nurse Practitioner Family; Visit Provider Nurse Anesthetist, Certified Registered
DX: M51.14 Intervertebral disc disorders with radiculopathy, thoracic region (principal); F98.8 Other specified behavioral and emotional disorders with onset usually occurring in childhood and adolescence; E11.9 Type 2 diabetes mellitus without complications; F32.9 Major depressive disorder, single episode, unspecified; F41.0 Panic disorder [episodic paroxysmal anxiety]; F17.210 Nicotine dependence, cigarettes, uncomplicated; Z88.5 Allergy status to narcotic agent; Z88.2 Allergy status to sulfonamides; Z79.899 Other long term (current) drug therapy
CPT/HCPCS: 64479; J1100

== ENCOUNTER 2025-03-28 15:40 | Outpatient (CLI) | payer OTHER, SELFPAY ==
[2025-03-28 18:19] LABS: Hematocrit 44.2 % (37.0-47.0); Hemoglobin 14.7 g/dL (12.2-16.2); Immature Granulocytes % 0.1 %; Mean Corpuscular HGB Conc 33.3 g/dL (31.8-35.4); Mean Corpuscular Hemoglobin 30.3 pg (27.0-31.2); Mean Corpuscular Volume 91.1 fl (81-99); Nucleated Red Blood Cells % 0 %; Platelet Count 240 K/mm3 (142-424); Red Blood Count 4.85 M/mm3 (4.20-5.40); Red Cell Distribution Width-SD 48.4 fL; White Blood Count 13.8 K/mm3 (4.8-10.8)
[2025-03-28 19:00] LABS: Chloride 103 mmol/L (98-107)
[2025-03-28 19:01] LABS: Albumin Level 3.9 g/dl (3.5-5.0); Potassium 4.5 mmoL/L (3.5-5.1); Sodium 137 mmol/L (136-145)
[2025-03-28 19:03] LABS: Blood Urea Nitrogen 21 mg/dl (7-17); Creatinine,Serum 1.00 mg/dl (0.52-1.04); Estimated Glomerular Filt Rate 61 ml/min (>60); GFR (African American) 74 ML/MIN (>60)
[2025-03-28 19:04] LABS: Alanine Aminotransferase 14 U/L (12-78); Albumin/Globulin Ratio 1.4 (1.1-1.8); Alkaline Phosphatase 80 U/L (38-126); Anion Gap 16.5 mEq/L (5-15); Aspartate Amino Transferase 15 U/L (14-36); Bilirubin,Total 0.5 mg/dl (0.2-1.3); Calcium 9.5 mg/dl (8.4-10.2); Carbon Dioxide 22 mmol/L (22.0-30.0); Globulin 2.7 g/dL (1.3-3.2); Glucose 269 mg/dl (74-100); Total Protein,Serum 6.6 g/dl (6.3-8.2)
[2025-03-28 19:27] LABS: 25-OH Vitamin D, Total 58.9 ng/mL (30-100)
[2025-03-28 19:39] LABS: Ferritin 64.4 ng/ml (6.24-137)
[2025-03-28 20:00] LABS: Vitamin B12 233 pg/mL (239-931)
[2025-03-28 20:07] LABS: Hemoglobin A1C 8.0 % (4.0-6.0)
--- OUTSIDE RECORDS SUMMARY | 2025-03-29 01:48 | XMS_ITS | Encounter Summary ---
Author Organization Healthcare Address [address] [place] [address] Care Team Providers Care Payloader Operator Name Role Phone Ana M Arceo APRN Primary Care Provider +1- [phone] Claritza Blair APRN, DNP Unavailable +1- [phone] Encounter Details Date Type Department Care Team (Late st Contact Info) Description 09/28/2024 Orders Only External Location [address] [place] [address] Provider, External Social History Tobacco Use Types [...] on filedocumented in this encounter Care Teams Payloader Operator Relationship Specialty Start Date End Date Ana M Arceo APRN [address] [place] [address] PCP - General 11/17/24 Claritza Blair, SERGING MACHINE OPERATOR, DNP [address] [phone] Nurse Practitioner Neurosurgery 11/17/24 documented as of this encounter
--- OUTSIDE RECORDS SUMMARY | 2025-03-29 01:48 | XMS_ITS | Encounter Summary ---
Author Organization Healthcare Address [address] [place] [address] Care Team Providers Care Dynamite Shooter Name Role Phone Ana M Arceo APRN Primary Care Provider +1- [phone] Claritza Blair APRN, DNP Unavailable +1- [phone] Encounter Details Date Type Department Care Team (Late st Contact Info) Description 09/28/2024 Orders Only External Location [address] [place] [address] Provider, External Social History Tobacco Use Types [...] on filedocumented in this encounter Care Teams Dynamite Shooter Relationship Specialty Start Date End Date Ana M Arceo APRN [address] [place] [address] PCP - General 11/17/24 Claritza Blair, ELECTRONICS TECH, DNP [address] [phone] Nurse Practitioner Neurosurgery 11/17/24 documented as of this encounter
--- OUTSIDE RECORDS SUMMARY | 2025-03-29 01:48 | XMS_ITS | Clinical Summary ---
Author Organization [facility] Address [address] [place] [address] Care Team Providers Care Workers Compensation Consultant Name Role Phone ArceoAna M guerrero Oz MARINE OIL TERMINAL SUPERINTENDENT Primary Care Provider +1- [phone] Claritza Blair APRN, DNP Unavailable +1- [phone] Allergies Active Allergy Reactions Criticality Noted Date Comments Codeine Nausea And Vomiting Low 09/07/2024 Sulfa Drugs Nausea And Vomiting Low 09/07/2024 Medications cetirizine (ZyrTEC) 10 MG tablet 12/15/2023 Active cholecalciferol (Vitamin D-3) 125 MCG (5000 UT) capsule daily. Active cyanocobalamin (Vitamin B-12) 1000 MCG/ML injection 05/10/2024 Active empagliflozin (Jardiance) 25 MG 1 tablet. Active HYDROcodone-acet aminophen ([place]) 5-325 MG tablet 10/19/2024 Active ibuprofen 800 [...] unspecified 12/30/2023 Cervicalgia 11/26/2023 Ring's esophagus 05/27/2022 Social History Tobacco Use Types Packs/Day Years [...] C Screening 1984 [facility]-Infant/Child/Adol SDOH Screenings 1984 [id number] Vaccine (#1) 01/13/1989 Diabetes: Dental Exam 01/13/1994 [facility]-Varicella Vaccines (1 of 2 - 13+ 2-dose series) 01/13/1997 [facility]- SDOH Screenings 01/13/2002 [facility]-Adult SDOH Screenings 01/13/2002 [facility]-DTaP,Tdap,and Td Vaccine s (1 - Tdap) 01/13/2003 [facility]-Hepatitis B Vaccines (1 of 3 - 19+ 3-dose series) 01/13/2003 [facility]-Pneumococcal Vaccine: Pediatrics (0 to 5 Years) and At-Risk Patients (6 to 49 Years) (1 of 2 - PCV) 01/13/2003 [facility]-Pap Smear 01/13/2005 HPV Vaccines (1 - 3-dose SCD M series) 01/13/2011 [facility]-Cervical Cancer Screening 01/13/2014 [facility]-HPV/Cotest 01/13/2014 [facility]-Influenza Vaccine (#1) 2025 [facility]-Zoster Vaccines (1 [...] on patient's age to complete this topic Insurance AETNA [facility] MEDICAID Care Teams Workers Compensation Consultant Relationship Specialty Start Date End Date Ana M Arceo APRN [address] [place] [address] PCP - General 11/17/24 Claritza Blair APRN, DNP [address] [place] [address] Nurse Practitioner Neurosurgery 11/17/24
--- OUTSIDE RECORDS SUMMARY | 2025-03-29 01:48 | XMS_ITS | Data Portability ---
Author Organization [facility] & ROSALIND Freedman ADMIN Address [address] [place] [address] Care Team Providers Care Hydrometer Calibrator Name Role Phone SUZAN MANE Referring Provider SUZAN MANE Primary Care Provider [phone] Assessment No assessment recorded. Plan of Treatment Reminders Order Date Submit Date Provider Last Modified By Organization Details Last Modified Time Details Appointments None recorded. Lab None recorded. Referral None recorded. Procedures None recorded. Surgeries None recorded. Imaging None recorded. Medication Orders pantoprazol e 40 mg tablet,mell yed release 2021 022 [facility], [address] [place] [address], [address], [place], [address], 10:41:37 Patient TargetsNo targets recorded. Patient InstructionsNo instructions recorded. Reason for Referral None Reported. Results Created Date Observation Date Name Description Value Unit Range Abnormal Flag Note LastModifiedBy Organization Detail LastModifiedTime Result Notes None recorded. Problems Name Problem SNOMED Code Status Onset Date Resolution Date Notes Provider Name and Address Organization Details Recorded Time Ring's esophagus 233702244 Active 022 [facility] & [place] 15:42:54 Problem Notes None recorded. Medical Equipment None Reported. Allergies Allergen ID Allergen Name Allergen Category Reaction Reaction Severity Criticality Documentation Date Start Date Code Code System Note Provider Name and Address Organization Details Recorded Time 62795 Substance with sulfonami de structure and antibacte rial mechanism of action (substanc e) medicatio n Not available Not available Not available 05/24/2022 83778 8003 SNOMED PATO [facility] & [place] 2 10:08:17 63947 codeine medicatio n Not available Not available Not available 05/24/2022 2670 RxNorm PATO [facility] - [facility] & [place] 2 10:08:22 Medications Name Sig Start Date [...] Address Organization Details Last Updated DateTime 05/24/2022 81107.3 g 78 /min 128/80 mm[Hg] [facility] [place] [facility] [place] 05/24/2022 10:17:00 Social History None recorded. Functional [...] Diagnosis SNOMED-CT Code Diagnosis ICD10 Code Diagnosis IMO Codes Diagnosis Note [id number] Griselda Tamayo NP [facility] [address] 05/24/2022 10:01:07 05/24/2022 10:31:45 Ring's esophagus 418421137 K22.70 - change omeprazole to pantoprazo le b.i.d.- EGD scheduled History of polyp of colon 139060259 Z86.010 History of colitis 85562 9006 Z87.19 - colonoscop y scheduled Health Concerns Section Related Observation LastModified by Organization Detai ls LastModified Time None Recorded Concern Status LastModified by Organization Details LastModified Time None Recorded Advance Directives Directive None Recorded Payers Insurance Date Sequence Insurance Name Policy Number Policy Mcdaniels Covered Member ID Mcdaniels Member ID Guarantor Name 06/10/2022 2 AETNA [facility] [id number] [facility] 06/10/2022 1 AETNA [facility] (MEDICAID HMO) [facility] [employer] [id number] [facility] 1 AETNA [facility] (MEDICAID HMO) Jessie [facility] [id number] [facility] 06/10/2022 1 [facility] TNA (POS II) [employer]ie [employer] [employer] [facility] [id number] [facility] 05/24/2022 1 ERIC Sloan [id number] Jessie Sloan Notes Date Note Type Note Provider Name and Address Organization Details Recorded Time 05/24/2022 text/html ROS as noted in the HPI patient is a 37-year-old female referred to our office by Dr. Edmar Storey. Patient was recently treated for colitis at [facility]. Reports abdominal pain has improved and diarrhea has resolved. Reports she did have some blood-tinged mucousy stool. 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 Her last EGD and colonoscopy was in November of 2020 at [facility]. Reports she also had history of colon polyps. Griselda Tamayo, BRYANT [address], [place], [address], [facility] [place] & [place] 05/24/2022 10:33:20 OBGyn Episode No OBEpisode recorded.
== END 2025-03-28 23:59 ==
LOC: LAB.DROPOF 03-29 01:46
PROVIDERS: PCP Nurse Practitioner Family; Visit Provider Nurse Practitioner Family
DX: E83.10 Disorder of iron metabolism, unspecified (principal); R79.89 Other specified abnormal findings of blood chemistry; E11.9 Type 2 diabetes mellitus without complications; E53.8 Deficiency of other specified B group vitamins
CPT/HCPCS: 80053; 82306; 82607; 82728; 83036; 85025

== ENCOUNTER 2025-05-17 13:45 | Day surgery (SDC) | payer OTHER, SELFPAY ==
[2025-05-17 13:53] VITALS: BP 123/76; PULSE 89; RESP 18; O2SAT 100; BMI 29.9
[2025-05-17] MEDS: BUPIVACAINE 0.25% 10ML INJ 25 MG IJ (13:59)
[2025-05-17] MEDS: LIDOCAINE 1% 5ML PF VIAL 5 ML (13:59)
[2025-05-17 14:01] VITALS: BP 127/64; PULSE 83; RESP 18; O2SAT 97
[2025-05-17 14:03] VITALS: BP 127/64; PULSE 83; RESP 18; O2SAT 97
--- NOTE | 2025-05-17 14:06 | P.PCN_ITS ---
Procedure Date: 05/17/25 Time: 14:00 Anesthesiologist:: Ishmael Bobby CRNA Complications:: None Pre-procedure Diagnosis:: Bilateral sacroiliitis. Post-procedure Diagnosis:: Same. Indications for Procedure:: Patient is a very pleasant 40-year-old female who comes our clinic today for b ilateral diagnostic sacroiliac joint injections local anesthetic. Patient describes low lumbar back pain off the midline bilaterally. Bilateral posterior hip pain. Difficulty transitioning from sitting to standing due to the bilateral posterior hip pain. She rates her pain 7/10. Procedure Details:: Procedure: Bilateral sacroiliac joint injections under fluoroscopy Informed consent was obtained and the risks and benefits of the procedure were explained to the patient.~ The patient was taken to the procedure room and noninvasive monitors were placed including a noninvasive blood pressure cuff and pulse oximeter.~ The patient was placed prone on the procedure table. Both hips were cleansed using Betadine as a cleansing solution. C-arm fluoroscopy was used to view the right sacroiliac joint.~ The skin and subcutaneous tissues were anesthetized using lidocaine 1.5% and a 25-gauge needle.~ After this, a 22-gauge spinal needle was inserted under fluoroscopic guidance into the inferior aspect of the right sacroiliac joint.~ Omnipaque dye was injected and good spread was seen throughout the joint.~ After this, approximately 5 mL of bupivacaine, 0.25% was incrementally injected into the right sacroiliac joint. We then moved to the left sacroiliac joint.~ The skin and subcutaneous tissues were anesthetized using lidocaine 1.5% and a 25-gauge needle.~ After this, a 22- gauge spinal needle was inserted under fluoroscopic guidance into the inferior aspect of the left sacroiliac joint.~ Omnipaque dye was injected and good spread was seen throughout the joint. After this, approximately 5 mL of bupivacaine, 0.25% was incrementally injected into the left sacroiliac joint.~ The patient tolerated the procedure well with no complications. The patient was observed in the Pain Clinic and then was discharged home neurologically intact. Plan and Disposition:: Patient was discharged without incident.
[2025-05-17 14:07] VITALS: BP 127/69; PULSE 88; RESP 16; O2SAT 100
== END 2025-05-17 14:07 | disposition home or self-care (01) ==
PROVIDERS: PCP Nurse Practitioner Family; Visit Provider Nurse Anesthetist, Certified Registered
DX: M46.1 Sacroiliitis, not elsewhere classified (principal); F98.8 Other specified behavioral and emotional disorders with onset usually occurring in childhood and adolescence; F41.0 Panic disorder [episodic paroxysmal anxiety]; F17.200 Nicotine dependence, unspecified, uncomplicated; E11.9 Type 2 diabetes mellitus without complications; F32.9 Major depressive disorder, single episode, unspecified; Z90.49 Acquired absence of other specified parts of digestive tract; Z98.51 Tubal ligation status; Z98.890 Other specified postprocedural states; Z83.3 Family history of diabetes mellitus
CPT/HCPCS: 20552; 77002; J0665; J2003